=== PATIENT | female | born 1940 | race African-American/Black ===

== ENCOUNTER 2017-07-25 19:13 | Inpatient (IN) | payer MEDICARE, MEDICAID ==
--- NOTE | 2017-07-25 19:27 | ED Physician Chart ---
ED Chief Complaint/HPI - Patient Information Date Seen:: 07/25/17 Time Seen:: 19:25 Chief Complaint:: Agitation History of Present Illness:: 76 yo female was brought from SNF to ER for evaluation of increased agitation, aggressive behavior and verbally abusiveness. Allergies:: Allergies Allergy/AdvReac Type Severity Reaction Status Date / Time Penicillins Allergy Verified 07/25/17 19:14 Vitals:: Vital Signs - 8 hr 07/25/17 19:15 Temp 97.5 F HR 70 RR 20 BP 145/74 O2 Sat % 95 ED Review of Systems - Review of Systems General/Constitutional: No fever Skin: No bruising Head: No headache Eyes: No pain ENT: No nasal drainage Neck: No neck pain Cardio Vascular: No chest pain Pulmonary: No SOB GI: No nausea, No vomiting Musculoskeletal: No bone or joint pain Psychiatric: Prior psych history Neurological: No focal symptoms ED Past Medical History - Past Medical History Past Medical History: ESRD, Seizures, Arthritis, Dementia, Other (DYSPHAGIA, POLYNEUROPATHY, CATARACT, ANEMIA) Social History: Non Smoker, No Alcohol, No Drug Use Psychiatricy History: Depression, Other (anxiety, schizoaffective, psychosis) Family Medical History - Family Member Mother History Unknown: Yes Ethnicity: Unknown Living Status: Unknown ED Physical Exam - Physical Examination General/Constitutional: Awake, Alert Head: Atraumatic Eyes: PERRL Skin: No ecchymosis ENMT: Nasal exam nl Neck: No nuchal rigidity Respiratory: No Wheeze/Rhonchi/Rales Cardio Vascular: RRR, No murmur, gallop, rubs, NL S1 S2 GI: No tenderness/rebounding/guarding Extremities: normal strength in all extremities Neuro/Psych: No focal deficits ED Labs/Radiology/EKG Results - Radiology Results Results: CXR: no focal consolidation ED Assessment - Assessment General Assessment: Psychosis Assessment/Comments:: CBC (blood clotted and patient refused to have another blood draw) CMP, UA CXR, EKG Patient was cleared for geropsych admission ED Septic Shock - . Is Septic Shock (SBP<90, OR Lactate>4 mmol\L) present?: No - <6hrs of presentation: Vital Signs: Vital Signs - 8 hr 07/25/17 19:15 Temp 97.5 F HR 70 RR 20 BP 145/74 O2 Sat % 95 ED Reassessment (Disposition) - Reassessment Reassessment Condition:: Unchanged - Patient Disposition Discharge/Transfer:: Asim w/in this hosp Admitting Medical Physician:: Cynthia Redmond Admitting Psych Physician:: Carmelo Grissom ED Discharge Plan - Patient Disposition Admit/Discharge/Transfer: Other Care w/in this hosp
[2017-07-25 21:35] LABS: ALBUMIN 3.9 gm/dL (3.7-5.3); ALKALINE PHOSPHATASE 63 U/L (34-104); ANION GAP 17.6 (7.0-16.0); BILIRUBIN,TOTAL 0.3 mg/dL (0.3-1.0); BUN - UREA NITROGEN 16 mg/dL (7-25); CALCIUM SERUM 9.2 mg/dL (8.6-10.3); CARBON DIOXIDE 17.2 mEq/L (21.0-31.0); CHLORIDE 109 mEq/L (98-107); CREATININE - SERUM 0.9 mg/dL (0.6-1.2); GLUCOSE 87 mg/dL (70-105); POTASSIUM SERUM 3.8 mEq/L (3.5-5.1); SGOT 21 U/L (13-39); SGPT/ALT 7 U/L (7-52); SODIUM SERUM 140 mEq/L (136-145); TOTAL PROTEIN,SERUM 7.7 gm/dL (6.0-8.3)
[2017-07-25 22:52] LABS: URINE MICROSCOPIC INDICATED? YES; URINE SOURCE RANDOM
[2017-07-25 22:59] LABS: URINE BILIRUBIN NEGATIVE (NEGATIVE); URINE BLOOD NEGATIVE (NEGATIVE); URINE CLARITY CLEAR (CLEAR); URINE COLOR YELLOW; URINE GLUCOSE (UA) NEGATIVE (NEGATIVE); URINE KETONE NEGATIVE (NEGATIVE); URINE LEUKOCYTE ESTERASE NEGATIVE (NEGATIVE); URINE NITRATE NEGATIVE (NEGATIVE); URINE PROTEIN NEGATIVE (NEGATIVE); URINE UROBILINOGEN 0.2 E.U./dL (0.2 - 1.0)
[2017-07-25 23:00] LABS: URINE BACTERIA FEW /hpf (NONE SEEN); URINE EPITHELIAL CELLS FEW /lpf (FEW); URINE RBC 0-2 /hpf (0-5); URINE WBC 0-2 /hpf (0-5)
[2017-07-25 23:57] VITALS: BP 143/73
[2017-07-25] MEDS ORDERED: Magnesium Hydroxide (MOM) 30 mL UDC PO PRN (23:58)
[2017-07-25] MEDS ORDERED: Maalox 30 mL Cup PO PRN (23:58)
[2017-07-26] MEDS ORDERED: Albuterol/Ipratropium Neb 3 ML AERS HHN PRN (00:02)
[2017-07-26 07:05] LABS: MEAN CORPUSCULAR HGB CONC 33.4 pg (28.0-36.0); MONOCYTE ABSOLUTE 0.4 Th/cmm (0.3-1.0); NEUTROPHILE ABSOLUTE 4.2 Th/cmm (1.8-8.0)
[2017-07-26 07:07] LABS: % BASOPHILS 0.5 % (0.0-2.0); % EOSINOPHILS 2.2 % (0.0-5.0); % LYMPHOCYTES 30.2 % (20.0-50.0); % MONOCYTES 6.7 % (2.0-10.0); % NEUTROPHILS 60.4 % (40.0-80.0); EOSINOPHILE ABSOLUTE 0.1 Th/cmm (0.1-0.4); HEMATOCRIT 38.1 % (41.0-60); HEMOGLOBIN 12.8 gm/dL (12-16); MEAN CELL VOLUME 86.7 fl (81-100); MEAN PLATELET VOLUME 9.3 fl; PLATELET COUNT 193 Th/cmm (150-400); RED CELL DISTRIBUTION WIDTH 13.9 % (11.5-20.0); WHITE BLOOD COUNT 6.7 Th/cmm (4.8-10.8)
[2017-07-26] MEDS: Multivitamin Tab PO SCH (08:42)
--- NOTE | 2017-07-26 09:13 | Diagnostic Imaging Report ---
Portable chest x-ray HISTORY: Shortness of breath. The heart is enlarged. There does appear to be degree of pulmonary vascular redistribution consistent with an element of cardiac decompensation. No henrietta pulmonary edema. No focal pulmonary processes. IMPRESSION: 1. Cardiomegaly along with changes suggesting a marginal degree of congestive heart failure without henrietta pulmonary edema. Clinical correlation is needed. 2. No focal pulmonary processes
[2017-07-26] MEDS ORDERED: Magnesium Hydroxide (MOM) 30 mL UDC PO PRN (10:22)
--- NOTE | 2017-07-26 12:28 | History & Physical ---
ADMIT DATE: HISTORY OF PRESENT ILLNESS: This patient is known to have history of multiple medical problems including history of end-stage renal disease, history of seizures, history of arthritis, history of dementia, history of polyneuropathy, history of cataract surgery, history of anemia, history of schizoaffective disorder. The patient came to the Emergency Room because of increasing agitation and aggressive behavior. The patient was admitted for [facility]. The patient complaining of no chest pain, no abdominal pain, no nausea, no vomiting, no diarrhea. Otherwise, system review was negative. PAST MEDICAL HISTORY: As enumerated above including history of ESRD, seizures, arthritis, dementia, polyneuropathy and anemia. PHYSICAL EXAMINATION: GENERAL: Alert, oriented, agitated. HEAD: Normal. ENT: Normal. LUNGS: Bilaterally clear. CARDIOVASCULAR SYSTEM: S1, S2 heard. ABDOMEN: Soft. Bowel sounds are heard. CENTRAL NERVOUS SYSTEM: Decreased sensorium. LABORATORY AND DIAGNOSTIC DATA: Chest x-ray was normal. The patient had all the labs done including CBC, chemistry, UA, chest x-ray, EKG and the patient was cleared for admission to the unit. INITIAL DIAGNOSES: Severe agitation, severe acute psychosis, history of hypertension, history of ESRD and history of seizures. The patient currently on multiple medications including albuterol for breathing treatment, Aricept for dementia, famotidine for GERD. We placed her on multivitamin and also we are giving her lorazepam and I will follow along with Dr. Trent in the Geropsych Unit. [facility]# [id number]
--- NOTE | 2017-07-26 14:31 | History & Physical ---
ADMIT DATE: 07/25/[address] Grissom. IDENTIFYING INFORMATION: The patient is a 76-year-old female. CHIEF COMPLAINT: No answer. HISTORY OF PRESENT ILLNESS: The patient was admitted because of aggressive behavior, verbally abusive. When I talked to her, she looked disheveled. She was a very poor historian. Rambling speech, unable to participate in a meaningful conversation or make safe plan for self-care, unpredictable, impulsive, needing redirection. PAST PSYCHIATRIC HISTORY: Unobtainable with a history of dementia. MEDICAL HISTORY: The patient has history of ESRD, seizure disorder, dementia, neuropathy and anemia. ALLERGIES: PENICILLIN. MEDICATIONS: The patient is on BuSpar 5 mg twice a day, Aricept 10 mg at bedtime, Namenda 5 mg twice a day, and olanzapine 5 mg at bedtime. FAMILY AND SOCIAL HISTORY: Unobtainable. MENTAL STATUS EXAMINATION: The patient is appropriately dressed, not well groomed. She looked disheveled, disorganized, internally preoccupied, unable to ____ conversation, or make safe plan for self-care, unpredictable, impulsive, unable to participate in memory testing, long and short term is poor. She is rambling. She believes she is 38, then she said she is 17, demented, confused; however, unable to do a formal mental status exam because of dementia. Her insight and judgment is impaired. IMPRESSION: AXIS I: Psychosis, not otherwise specified, and dementia. MEDICAL DIAGNOSES: Deferred to Dr. Redmond. Her assets, she is accepting treatment. Negative for coping dementia. INITIAL TREATMENT PLAN: The patient will be continued on medication, will adjust medication, and will do group therapy, milieu therapy, individual therapy. ESTIMATED LENGTH OF STAY: 3-7 days. DISCHARGE CRITERIA: Decrease psychosis, agitation. After discharge, outpatient. JOB# [id number]
[2017-07-27] MEDS ORDERED: Albuterol/Ipratropium Neb 3 ML AERS HHN PRN ×3 (07:59→09:30)
[2017-07-27] MEDS: Multivitamin Tab PO SCH (08:54)
[2017-07-27] MEDS: Albuterol/Ipratropium Neb 3 ML AERS HHN SCH ×4 (11:09→19:36)
--- NOTE | 2017-07-27 12:16 | General Progress Note ---
Subjective - Review of Systems Events since last encounter: psychotic in no acute distress Objective - Results Result Diagrams: 07/26/17 06:55 07/25/17 20:10 Recent Labs: Laboratory Last Values WBC 6.7 Th/cmm (4.8-10.8) 07/26/17 06:55 RBC 4.40 Mil/cmm (3.80-5.20) 07/26/17 06:55 Hgb 12.8 gm/dL (12-16) 07/26/17 06:55 Hct 38.1 % (41.0-60) L 07/26/17 06:55 MCV 86.7 fl (81-100) 07/26/17 06:55 MCH 29.0 pg (27.0-31.0) 07/26/17 06:55 MCHC Differential 33.4 pg (28.0-36.0) 07/26/17 06:55 RDW 13.9 % (11.5-20.0) 07/26/17 06:55 Plt Count 193 Th/cmm (150-400) 07/26/17 06:55 MPV 9.3 fl 07/26/17 06:55 Neutrophils % 60.4 % (40.0-80.0) 07/26/17 06:55 Lymphocytes % 30.2 % (20.0-50.0) 07/26/17 06:55 Monocytes % 6.7 % (2.0-10.0) 07/26/17 06:55 Eosinophils % 2.2 % (0.0-5.0) 07/26/17 06:55 Basophils % 0.5 % (0.0-2.0) 07/26/17 06:55 Sodium 140 mEq/L (136-145) 07/25/17 20:10 Potassium 3.8 mEq/L (3.5-5.1) 07/25/17 20:10 Chloride 109 mEq/L (98-107) H 07/25/17 20:10 Carbon Dioxide 17.2 mEq/L (21.0-31.0) L 07/25/17 20:10 Anion Gap 17.6 (7.0-16.0) H 07/25/17 20:10 BUN 16 mg/dL (7-25) 07/25/17 20:10 Creatinine 0.9 mg/dL (0.6-1.2) 07/25/17 20:10 Est GFR ( Amer) TNP 07/25/17 20:10 Est GFR (Non-Af Amer) TNP 07/25/17 20:10 BUN/Creatinine Ratio 17.8 07/25/17 20:10 Glucose 87 mg/dL (70-105) 07/25/17 20:10 Calcium 9.2 mg/dL (8.6-10.3) 07/25/17 20:10 Total Bilirubin 0.3 mg/dL (0.3-1.0) 07/25/17 20:10 AST 21 U/L (13-39) 07/25/17 20:10 ALT 7 U/L (7-52) 07/25/17 20:10 Alkaline Phosphatase 63 U/L (34-104) 07/25/17 20:10 Total Protein 7.7 gm/dL (6.0-8.3) 07/25/17 20:10 Albumin 3.9 gm/dL (3.7-5.3) 07/25/17 20:10 Globulin 3.8 gm/dL 07/25/17 20:10 Albumin/Globulin Ratio 1.0 (1.0-1.8) 07/25/17 20:10 TSH 1.23 uIU/ml (0.34-5.60) 07/25/17 20:10 Urine Source RANDOM 07/25/17 22:40 Urine Color YELLOW 07/25/17 22:40 Urine Clarity CLEAR (CLEAR) 07/25/17 22:40 Urine pH 6.0 (4.6 - 8.0) 07/25/17 22:40 Ur Specific [place] 1.015 (1.005-1.030) 07/25/17 22:40 Urine Protein NEGATIVE mg/dL (NEGATIVE) 07/25/17 22:40 Urine Glucose (UA) NEGATIVE mg/dL (NEGATIVE) 07/25/17 22:40 Urine Ketones NEGATIVE mg/dL (NEGATIVE) 07/25/17 22:40 Urine Blood NEGATIVE (NEGATIVE) 07/25/17 22:40 Urine Nitrate NEGATIVE (NEGATIVE) 07/25/17 22:40 Urine Bilirubin NEGATIVE (NEGATIVE) 07/25/17 22:40 Urine Urobilinogen 0.2 E.U./dL (0.2 - 1.0) 07/25/17 22:40 Ur Leukocyte Esterase NEGATIVE (NEGATIVE) 07/25/17 22:40 Urine RBC 0-2 /hpf (0-5) 07/25/17 22:40 Urine WBC 0-2 /hpf (0-5) 07/25/17 22:40 Ur Epithelial Cells FEW /lpf (FEW) 07/25/17 22:40 Urine Bacteria FEW /hpf (NONE SEEN) 07/25/17 22:40 - Physical Exam Vitals and I&O: Vital Signs Temp 98 F 07/27/17 06:35 Pulse 84 07/27/17 11:13 Resp 16 07/27/17 11:13 BP 136/71 07/27/17 06:35 Pulse Ox 96 07/27/17 11:13 Intake & Output 07/26/17 07/27/17 07/27/17 18:59 06:59 18:59 Intake Total 480 Balance 480 Intake: Oral 480 Other: # Voids 1 Active Medications: Current Medications Acetaminophen (Tylenol) 650 mg PO Q4HR PRN PRN Reason: Mild Pain / Temp above 100 Stop: 09/23/17 23:57 Acetaminophen (Tylenol) 650 mg PO Q4HR PRN PRN Reason: TEMP >99.9 OR PAIN Stop: 09/24/17 10:21 Al Hydrox/Mg Hydrox/Simethicone (Maalox) 30 ml PO Q4HR PRN PRN Reason: GI DISTRESS Stop: 09/23/17 23:57 Albuterol/Ipratropium (Duoneb Neb) 3 ml HHN [id number] [facility] Stop: 09/25/17 10:59 Last Admin: 07/27/17 11:09 Dose: 3 ml Albuterol/Ipratropium (Duoneb Neb) 3 ml HHN Q4HRT PRN PRN Reason: Wheezing Stop: 09/25/17 09:02 Ascorbic Acid (Vitamin C) 500 mg PO DAILY [facility] Stop: 09/24/17 08:59 Last Admin: 07/27/17 08:55 Dose: 500 mg Buspirone HCl (Buspar) 5 mg PO BID [facility] PRN Reason: Protocol Stop: 09/24/17 08:59 Last Admin: 07/27/17 08:55 Dose: 5 mg Donepezil HCl (Aricept) 10 mg PO HS [facility] Stop: 09/24/17 20:59 Last Admin: 07/26/17 20:49 Dose: 10 mg Famotidine (Pepcid) 20 mg PO DAILY [facility] Stop: 09/24/17 08:59 Last Admin: 07/27/17 08:55 Dose: 20 mg Gabapentin (Neurontin) 300 mg PO BID [facility] Stop: 09/24/17 08:59 Last Admin: 07/27/17 08:55 Dose: 300 mg Lorazepam (Ativan) 0.5 mg PO Q4HR PRN; Protocol PRN Reason: Anxiety/agitation Stop: 08/24/17 23:57 Magnesium Hydroxide (Milk Of Magnesia) 30 ml PO HS PRN PRN Reason: Constipation Magnesium Hydroxide (Milk Of Magnesia) 30 ml PO Q24H PRN PRN Reason: IF NO BM IN THREE DAYS Stop: 09/24/17 10:21 Memantine (Namenda) 5 mg PO BID [facility] Stop: 09/24/17 08:59 Last Admin: 07/27/17 08:55 Dose: 5 mg Multivitamins/Vitamin C (Theragran) 1 tab PO DAILY [facility] Stop: 09/24/17 08:59 Last Admin: 07/27/17 08:54 Dose: 1 tab Olanzapine (Zyprexa) 5 mg PO DAILY [facility] PRN Reason: Protocol Stop: 09/24/17 08:59 Last Admin: 07/27/17 08:55 Dose: 5 mg Pyridoxine HCl (Vitamin B6) 25 mg PO DAILY [facility] Stop: 09/24/17 08:59 Last Admin: 07/27/17 08:54 Dose: 25 mg Zolpidem Tartrate (Ambien) 5 mg PO HS PRN PRN Reason: Insomnia Stop: 09/23/17 23:57 Last Admin: 07/26/17 20:50 Dose: 5 mg Assessment/Plan - Problem List Patient Problems: All Active Problems AGGRESSIVE BEHAVIOR AND VERBAL ABUSE (Acute)
--- NOTE | 2017-07-28 02:09 | Progress Notes ---
DATE: 07/27/[address] Grissom. Case was discussed with staff of the patient, reviewed records. The patient continues to be confused, unable to make safe plan for self-care or participate in meaningful conversation, does have essential agitation, irritability, ____ impulsive, needing redirection. She is compliant with the medication with no side effects, no sedation, no nausea, and no extrapyramidal symptoms. We will continue to work with the patient in group therapy, milieu therapy, and adjust medication as needed. JOB# [id number]
[2017-07-28] MEDS: Albuterol/Ipratropium Neb 3 ML AERS HHN SCH ×4 (07:14→19:49)
[2017-07-28] MEDS: Multivitamin Tab PO SCH (11:18)
--- NOTE | 2017-07-28 20:27 | Internal Medicine Prog Note ---
Internal Medicine Objective - Results Result Diagrams: 07/26/17 06:55 07/25/17 20:10 Recent Labs: Laboratory Last Values WBC 6.7 Th/cmm (4.8-10.8) 07/26/17 06:55 RBC 4.40 Mil/cmm (3.80-5.20) 07/26/17 06:55 Hgb 12.8 gm/dL (12-16) 07/26/17 06:55 Hct 38.1 % (41.0-60) L 07/26/17 06:55 MCV 86.7 fl (81-100) 07/26/17 06:55 MCH 29.0 pg (27.0-31.0) 07/26/17 06:55 MCHC Differential 33.4 pg (28.0-36.0) 07/26/17 06:55 RDW 13.9 % (11.5-20.0) 07/26/17 06:55 Plt Count 193 Th/cmm (150-400) 07/26/17 06:55 MPV 9.3 fl 07/26/17 06:55 Neutrophils % 60.4 % (40.0-80.0) 07/26/17 06:55 Lymphocytes % 30.2 % (20.0-50.0) 07/26/17 06:55 Monocytes % 6.7 % (2.0-10.0) 07/26/17 06:55 Eosinophils % 2.2 % (0.0-5.0) 07/26/17 06:55 Basophils % 0.5 % (0.0-2.0) 07/26/17 06:55 Sodium 140 mEq/L (136-145) 07/25/17 20:10 Potassium 3.8 mEq/L (3.5-5.1) 07/25/17 20:10 Chloride 109 mEq/L (98-107) H 07/25/17 20:10 Carbon Dioxide 17.2 mEq/L (21.0-31.0) L 07/25/17 20:10 Anion Gap 17.6 (7.0-16.0) H 07/25/17 20:10 BUN 16 mg/dL (7-25) 07/25/17 20:10 Creatinine 0.9 mg/dL (0.6-1.2) 07/25/17 20:10 Est GFR ( Amer) TNP 07/25/17 20:10 Est GFR (Non-Af Amer) TNP 07/25/17 20:10 BUN/Creatinine Ratio 17.8 07/25/17 20:10 Glucose 87 mg/dL (70-105) 07/25/17 20:10 Calcium 9.2 mg/dL (8.6-10.3) 07/25/17 20:10 Total Bilirubin 0.3 mg/dL (0.3-1.0) 07/25/17 20:10 AST 21 U/L (13-39) 07/25/17 20:10 ALT 7 U/L (7-52) 07/25/17 20:10 Alkaline Phosphatase 63 U/L (34-104) 07/25/17 20:10 Total Protein 7.7 gm/dL (6.0-8.3) 07/25/17 20:10 Albumin 3.9 gm/dL (3.7-5.3) 07/25/17 20:10 Globulin 3.8 gm/dL 07/25/17 20:10 Albumin/Globulin Ratio 1.0 (1.0-1.8) 07/25/17 20:10 TSH 1.23 uIU/ml (0.34-5.60) 07/25/17 20:10 Urine Source RANDOM 07/25/17 22:40 Urine Color YELLOW 07/25/17 22:40 Urine Clarity CLEAR (CLEAR) 07/25/17 22:40 Urine pH 6.0 (4.6 - 8.0) 07/25/17 22:40 Ur Specific [place] 1.015 (1.005-1.030) 07/25/17 22:40 Urine Protein NEGATIVE mg/dL (NEGATIVE) 07/25/17 22:40 Urine Glucose (UA) NEGATIVE mg/dL (NEGATIVE) 07/25/17 22:40 Urine Ketones NEGATIVE mg/dL (NEGATIVE) 07/25/17 22:40 Urine Blood NEGATIVE (NEGATIVE) 07/25/17 22:40 Urine Nitrate NEGATIVE (NEGATIVE) 07/25/17 22:40 Urine Bilirubin NEGATIVE (NEGATIVE) 07/25/17 22:40 Urine Urobilinogen 0.2 E.U./dL (0.2 - 1.0) 07/25/17 22:40 Ur Leukocyte Esterase NEGATIVE (NEGATIVE) 07/25/17 22:40 Urine RBC 0-2 /hpf (0-5) 07/25/17 22:40 Urine WBC 0-2 /hpf (0-5) 07/25/17 22:40 Ur Epithelial Cells FEW /lpf (FEW) 07/25/17 22:40 Urine Bacteria FEW /hpf (NONE SEEN) 07/25/17 22:40 - Physical Exam Vitals and I&O: Vital Signs Temp 98 F 07/28/17 14:00 Pulse 86 07/28/17 16:11 Resp 20 07/28/17 19:49 BP 116/90 07/28/17 14:00 Pulse Ox 97 07/28/17 16:11 Intake & Output 07/28/17 07/28/17 07/29/17 06:59 18:59 06:59 Intake Total 240 1200 240 Balance 240 1200 240 Weight (lbs) 67.585 kg Intake: Oral 240 1200 240 Other: # Voids 3 3 1 # Bowel Movements 0 0 Weight Source Bedscale Active Medications: Current Medications Acetaminophen (Tylenol) 650 mg PO Q4HR PRN PRN Reason: Mild Pain / Temp above 100 Stop: 09/23/17 23:57 Acetaminophen (Tylenol) 650 mg PO Q4HR PRN PRN Reason: TEMP >99.9 OR PAIN Stop: 09/24/17 10:21 Al Hydrox/Mg Hydrox/Simethicone (Maalox) 30 ml PO Q4HR PRN PRN Reason: GI DISTRESS Stop: 09/23/17 23:57 Albuterol/Ipratropium (Duoneb Neb) 3 ml HHN [id number] Stop: 09/25/17 10:59 Last Admin: 07/28/17 19:49 Dose: Not Given Albuterol/Ipratropium (Duoneb Neb) 3 ml HHN Q4HRT PRN PRN Reason: Wheezing Stop: 09/25/17 09:02 Ascorbic Acid (Vitamin C) 500 mg PO DAILY [facility] Stop: 09/24/17 08:59 Last Admin: 07/28/17 11:18 Dose: Not Given Buspirone HCl (Buspar) 5 mg PO BID [facility] PRN Reason: Protocol Stop: 09/24/17 08:59 Last Admin: 07/28/17 16:42 Dose: 5 mg Donepezil HCl (Aricept) 10 mg PO HS [facility] Stop: 09/24/17 20:59 Last Admin: 07/28/17 20:24 Dose: 10 mg Famotidine (Pepcid) 20 mg PO DAILY [facility] Stop: 09/24/17 08:59 Last Admin: 07/28/17 11:18 Dose: Not Given Gabapentin (Neurontin) 300 mg PO BID [facility] Stop: 09/24/17 08:59 Last Admin: 07/28/17 16:42 Dose: 300 mg Lorazepam (Ativan) 0.5 mg PO Q4HR PRN; Protocol PRN Reason: Anxiety/agitation Stop: 08/24/17 23:57 Last Admin: 07/27/17 20:55 Dose: 0.5 mg Magnesium Hydroxide (Milk Of Magnesia) 30 ml PO HS PRN PRN Reason: Constipation Magnesium Hydroxide (Milk Of Magnesia) 30 ml PO Q24H PRN PRN Reason: IF NO BM IN THREE DAYS Stop: 09/24/17 10:21 Memantine (Namenda) 5 mg PO BID [facility] Stop: 09/24/17 08:59 Last Admin: 07/28/17 16:42 Dose: 5 mg Multivitamins/Vitamin C (Theragran) 1 tab PO DAILY [facility] Stop: 09/24/17 08:59 Last Admin: 07/28/17 11:18 Dose: Not Given Olanzapine (Zyprexa) 5 mg PO DAILY [facility] PRN Reason: Protocol Stop: 09/24/17 08:59 Last Admin: 07/28/17 11:18 Dose: Not Given Pyridoxine HCl (Vitamin B6) 25 mg PO DAILY [facility] Stop: 09/24/17 08:59 Last Admin: 07/28/17 11:18 Dose: Not Given Zolpidem Tartrate (Ambien) 5 mg PO HS PRN PRN Reason: Insomnia Stop: 09/23/17 23:57 Last Admin: 07/27/17 20:55 Dose: 5 mg
--- NOTE | 2017-07-28 23:54 | Progress Notes ---
DATE: 07/28/2017 SUBJECTIVE: Case discussed with staff of the patient, reviewed records. The patient continues to have poor insight, talking to herself, unpredictable, impulsive, demented, confused, needing redirection, unable to make safe plan for self-care or participate in a meaningful conversation. She is sleeping better, eating better. No side effects with the medication, no sedation, no nausea, no extrapyramidal symptoms and we will continue to work with the patient in group therapy, milieu therapy, and adjust medication as needed. JOB# [id number]
[2017-07-29] MEDS: Albuterol/Ipratropium Neb 3 ML AERS HHN SCH ×4 (07:17→19:43)
[2017-07-29] MEDS: Multivitamin Tab PO SCH (09:28)
--- NOTE | 2017-07-29 15:23 | Progress Notes ---
DATE: 07/29/2017 SUBJECTIVE: Case was discussed with staff and patient records. The patient continues to be demented, confused, very poor insight, unpredictable, impulsive, needing redirection, very poor insight. Unable to make safe plan for self-care. She is compliant with the medication with no side effects, no sedation. No nausea. . We will continue to work with the patient in group therapy, milieu therapy, and adjust medications as needed. JOB# [id number]
--- NOTE | 2017-07-29 20:17 | Internal Medicine Prog Note ---
Internal Medicine Subjective - Subjective Service Date: 07/29/17 Patient seen and examined:: with staff Patient is:: awake Per staff patient has:: tolerating meds Internal Medicine Objective - Results Result Diagrams: 07/26/17 06:55 07/25/17 20:10 Recent Labs: Laboratory Last Values WBC 6.7 Th/cmm (4.8-10.8) 07/26/17 06:55 RBC 4.40 Mil/cmm (3.80-5.20) 07/26/17 06:55 Hgb 12.8 gm/dL (12-16) 07/26/17 06:55 Hct 38.1 % (41.0-60) L 07/26/17 06:55 MCV 86.7 fl (81-100) 07/26/17 06:55 MCH 29.0 pg (27.0-31.0) 07/26/17 06:55 MCHC Differential 33.4 pg (28.0-36.0) 07/26/17 06:55 RDW 13.9 % (11.5-20.0) 07/26/17 06:55 Plt Count 193 Th/cmm (150-400) 07/26/17 06:55 MPV 9.3 fl 07/26/17 06:55 Neutrophils % 60.4 % (40.0-80.0) 07/26/17 06:55 Lymphocytes % 30.2 % (20.0-50.0) 07/26/17 06:55 Monocytes % 6.7 % (2.0-10.0) 07/26/17 06:55 Eosinophils % 2.2 % (0.0-5.0) 07/26/17 06:55 Basophils % 0.5 % (0.0-2.0) 07/26/17 06:55 Sodium 140 mEq/L (136-145) 07/25/17 20:10 Potassium 3.8 mEq/L (3.5-5.1) 07/25/17 20:10 Chloride 109 mEq/L (98-107) H 07/25/17 20:10 Carbon Dioxide 17.2 mEq/L (21.0-31.0) L 07/25/17 20:10 Anion Gap 17.6 (7.0-16.0) H 07/25/17 20:10 BUN 16 mg/dL (7-25) 07/25/17 20:10 Creatinine 0.9 mg/dL (0.6-1.2) 07/25/17 20:10 Est GFR ( Amer) TNP 07/25/17 20:10 Est GFR (Non-Af Amer) TNP 07/25/17 20:10 BUN/Creatinine Ratio 17.8 07/25/17 20:10 Glucose 87 mg/dL (70-105) 07/25/17 20:10 Calcium 9.2 mg/dL (8.6-10.3) 07/25/17 20:10 Total Bilirubin 0.3 mg/dL (0.3-1.0) 07/25/17 20:10 AST 21 U/L (13-39) 07/25/17 20:10 ALT 7 U/L (7-52) 07/25/17 20:10 Alkaline Phosphatase 63 U/L (34-104) 07/25/17 20:10 Total Protein 7.7 gm/dL (6.0-8.3) 07/25/17 20:10 Albumin 3.9 gm/dL (3.7-5.3) 07/25/17 20:10 Globulin 3.8 gm/dL 07/25/17 20:10 Albumin/Globulin Ratio 1.0 (1.0-1.8) 07/25/17 20:10 TSH 1.23 uIU/ml (0.34-5.60) 07/25/17 20:10 Urine Source RANDOM 07/25/17 22:40 Urine Color YELLOW 07/25/17 22:40 Urine Clarity CLEAR (CLEAR) 07/25/17 22:40 Urine pH 6.0 (4.6 - 8.0) 07/25/17 22:40 Ur Specific [place] 1.015 (1.005-1.030) 07/25/17 22:40 Urine Protein NEGATIVE mg/dL (NEGATIVE) 07/25/17 22:40 Urine Glucose (UA) NEGATIVE mg/dL (NEGATIVE) 07/25/17 22:40 Urine Ketones NEGATIVE mg/dL (NEGATIVE) 07/25/17 22:40 Urine Blood NEGATIVE (NEGATIVE) 07/25/17 22:40 Urine Nitrate NEGATIVE (NEGATIVE) 07/25/17 22:40 Urine Bilirubin NEGATIVE (NEGATIVE) 07/25/17 22:40 Urine Urobilinogen 0.2 E.U./dL (0.2 - 1.0) 07/25/17 22:40 Ur Leukocyte Esterase NEGATIVE (NEGATIVE) 07/25/17 22:40 Urine RBC 0-2 /hpf (0-5) 07/25/17 22:40 Urine WBC 0-2 /hpf (0-5) 07/25/17 22:40 Ur Epithelial Cells FEW /lpf (FEW) 07/25/17 22:40 Urine Bacteria FEW /hpf (NONE SEEN) 07/25/17 22:40 - Physical Exam Vitals and I&O: Vital Signs Temp 98.7 F 07/29/17 15:36 Pulse 74 07/29/17 19:44 Resp 20 07/29/17 19:44 BP 158/81 07/29/17 15:36 Pulse Ox 95 07/29/17 19:44 Intake & Output 07/29/17 07/29/17 07/30/17 06:59 18:59 06:59 Intake Total 360 1200 Balance 360 1200 Intake: Oral 360 1200 Other: # Voids 1 3 # Bowel Movements 0 Active Medications: Current Medications Acetaminophen (Tylenol) 650 mg PO Q4HR PRN PRN Reason: Mild Pain / Temp above 100 Stop: 09/23/17 23:57 Last Admin: 07/29/17 15:44 Dose: 650 mg Acetaminophen (Tylenol) 650 mg PO Q4HR PRN PRN Reason: TEMP >99.9 OR PAIN Stop: 09/24/17 10:21 Al Hydrox/Mg Hydrox/Simethicone (Maalox) 30 ml PO Q4HR PRN PRN Reason: GI DISTRESS Stop: 09/23/17 23:57 Albuterol/Ipratropium (Duoneb Neb) 3 ml HHN [id number] [facility] Stop: 09/25/17 10:59 Last Admin: 07/29/17 19:43 Dose: Not Given Albuterol/Ipratropium (Duoneb Neb) 3 ml HHN Q4HRT PRN PRN Reason: Wheezing Stop: 09/25/17 09:02 Ascorbic Acid (Vitamin C) 500 mg PO DAILY [facility] Stop: 09/24/17 08:59 Last Admin: 07/29/17 09:30 Dose: 500 mg Buspirone HCl (Buspar) 5 mg PO BID [facility] DANIEL PRN Reason: Protocol Stop: 09/24/17 08:59 Last Admin: 07/29/17 16:51 Dose: 5 mg Donepezil HCl (Aricept) 10 mg PO HS [facility] DANIEL Stop: 09/24/17 20:59 Last Admin: 07/28/17 20:24 Dose: 10 mg Famotidine (Pepcid) 20 mg PO DAILY [facility] Stop: 09/24/17 08:59 Last Admin: 07/29/17 09:28 Dose: 20 mg Gabapentin (Neurontin) 300 mg PO BID [facility] DANIEL Stop: 09/24/17 08:59 Last Admin: 07/29/17 16:51 Dose: 300 mg Lorazepam (Ativan) 0.5 mg PO Q4HR PRN; Protocol PRN Reason: Anxiety/agitation Stop: 08/24/17 23:57 Last Admin: 07/27/17 20:55 Dose: 0.5 mg Magnesium Hydroxide (Milk Of Magnesia) 30 ml PO Q24H PRN PRN Reason: IF NO BM IN THREE DAYS Stop: 09/24/17 10:21 Memantine (Namenda) 5 mg PO BID LUIS DANIEL Stop: 09/24/17 08:59 Last Admin: 07/29/17 16:51 Dose: 5 mg Multivitamins/Vitamin C (Theragran) 1 tab PO DAILY [facility] DANIEL Stop: 09/24/17 08:59 Last Admin: 07/29/17 09:28 Dose: 1 tab Olanzapine (Zyprexa) 5 mg PO DAILY [facility] DANIEL PRN Reason: Protocol Stop: 09/24/17 08:59 Last Admin: 07/29/17 09:31 Dose: 5 mg Pyridoxine HCl (Vitamin B6) 25 mg PO DAILY [facility] DANIEL Stop: 09/24/17 08:59 Last Admin: 07/29/17 09:28 Dose: 25 mg Zolpidem Tartrate (Ambien) 5 mg PO HS PRN PRN Reason: Insomnia Stop: 09/23/17 23:57 Last Admin: 07/27/17 20:55 Dose: 5 mg HEENT: NC/AT Neck: Supple Lungs: CTAB
[2017-07-30] MEDS: Albuterol/Ipratropium Neb 3 ML AERS HHN SCH ×4 (07:30→20:22)
[2017-07-30] MEDS: Multivitamin Tab PO SCH (08:25)
--- NOTE | 2017-07-30 14:17 | General Progress Note ---
Subjective - Review of Systems Events since last encounter: no distress awake alert Objective - Results Result Diagrams: 07/26/17 06:55 07/25/17 20:10 Recent Labs: Laboratory Last Values WBC 6.7 Th/cmm (4.8-10.8) 07/26/17 06:55 RBC 4.40 Mil/cmm (3.80-5.20) 07/26/17 06:55 Hgb 12.8 gm/dL (12-16) 07/26/17 06:55 Hct 38.1 % (41.0-60) L 07/26/17 06:55 MCV 86.7 fl (81-100) 07/26/17 06:55 MCH 29.0 pg (27.0-31.0) 07/26/17 06:55 MCHC Differential 33.4 pg (28.0-36.0) 07/26/17 06:55 RDW 13.9 % (11.5-20.0) 07/26/17 06:55 Plt Count 193 Th/cmm (150-400) 07/26/17 06:55 MPV 9.3 fl 07/26/17 06:55 Neutrophils % 60.4 % (40.0-80.0) 07/26/17 06:55 Lymphocytes % 30.2 % (20.0-50.0) 07/26/17 06:55 Monocytes % 6.7 % (2.0-10.0) 07/26/17 06:55 Eosinophils % 2.2 % (0.0-5.0) 07/26/17 06:55 Basophils % 0.5 % (0.0-2.0) 07/26/17 06:55 Sodium 140 mEq/L (136-145) 07/25/17 20:10 Potassium 3.8 mEq/L (3.5-5.1) 07/25/17 20:10 Chloride 109 mEq/L (98-107) H 07/25/17 20:10 Carbon Dioxide 17.2 mEq/L (21.0-31.0) L 07/25/17 20:10 Anion Gap 17.6 (7.0-16.0) H 07/25/17 20:10 BUN 16 mg/dL (7-25) 07/25/17 20:10 Creatinine 0.9 mg/dL (0.6-1.2) 07/25/17 20:10 Est GFR ( Amer) TNP 07/25/17 20:10 Est GFR (Non-Af Amer) TNP 07/25/17 20:10 BUN/Creatinine Ratio 17.8 07/25/17 20:10 Glucose 87 mg/dL (70-105) 07/25/17 20:10 Calcium 9.2 mg/dL (8.6-10.3) 07/25/17 20:10 Total Bilirubin 0.3 mg/dL (0.3-1.0) 07/25/17 20:10 AST 21 U/L (13-39) 07/25/17 20:10 ALT 7 U/L (7-52) 07/25/17 20:10 Alkaline Phosphatase 63 U/L (34-104) 07/25/17 20:10 Total Protein 7.7 gm/dL (6.0-8.3) 07/25/17 20:10 Albumin 3.9 gm/dL (3.7-5.3) 07/25/17 20:10 Globulin 3.8 gm/dL 07/25/17 20:10 Albumin/Globulin Ratio 1.0 (1.0-1.8) 07/25/17 20:10 TSH 1.23 uIU/ml (0.34-5.60) 07/25/17 20:10 Urine Source RANDOM 07/25/17 22:40 Urine Color YELLOW 07/25/17 22:40 Urine Clarity CLEAR (CLEAR) 07/25/17 22:40 Urine pH 6.0 (4.6 - 8.0) 07/25/17 22:40 Ur Specific [place] 1.015 (1.005-1.030) 07/25/17 22:40 Urine Protein NEGATIVE mg/dL (NEGATIVE) 07/25/17 22:40 Urine Glucose (UA) NEGATIVE mg/dL (NEGATIVE) 07/25/17 22:40 Urine Ketones NEGATIVE mg/dL (NEGATIVE) 07/25/17 22:40 Urine Blood NEGATIVE (NEGATIVE) 07/25/17 22:40 Urine Nitrate NEGATIVE (NEGATIVE) 07/25/17 22:40 Urine Bilirubin NEGATIVE (NEGATIVE) 07/25/17 22:40 Urine Urobilinogen 0.2 E.U./dL (0.2 - 1.0) 07/25/17 22:40 Ur Leukocyte Esterase NEGATIVE (NEGATIVE) 07/25/17 22:40 Urine RBC 0-2 /hpf (0-5) 07/25/17 22:40 Urine WBC 0-2 /hpf (0-5) 07/25/17 22:40 Ur Epithelial Cells FEW /lpf (FEW) 07/25/17 22:40 Urine Bacteria FEW /hpf (NONE SEEN) 07/25/17 22:40 - Physical Exam Vitals and I&O: Vital Signs Temp 97.7 F 07/30/17 06:34 Pulse 104 07/30/17 07:30 Resp 20 07/30/17 07:30 BP 123/74 07/30/17 06:34 Pulse Ox 97 07/30/17 07:30 Intake & Output 07/29/17 07/30/17 07/30/17 18:59 06:59 18:59 Intake Total 1200 120 Balance 1200 120 Intake: Oral 1200 120 Other: # Voids 3 3 Active Medications: Current Medications Acetaminophen (Tylenol) 650 mg PO Q4HR PRN PRN Reason: Mild Pain / Temp above 100 Stop: 09/23/17 23:57 Last Admin: 07/29/17 15:44 Dose: 650 mg Acetaminophen (Tylenol) 650 mg PO Q4HR PRN PRN Reason: TEMP >99.9 OR PAIN Stop: 09/24/17 10:21 Al Hydrox/Mg Hydrox/Simethicone (Maalox) 30 ml PO Q4HR PRN PRN Reason: GI DISTRESS Stop: 09/23/17 23:57 Albuterol/Ipratropium (Duoneb Neb) 3 ml HHN [id number] [facility] Stop: 09/25/17 10:59 Last Admin: 07/30/17 11:00 Dose: Not Given Albuterol/Ipratropium (Duoneb Neb) 3 ml HHN Q4HRT PRN PRN Reason: Wheezing Stop: 09/25/17 09:02 Ascorbic Acid (Vitamin C) 500 mg PO DAILY [facility] Stop: 09/24/17 08:59 Last Admin: 07/30/17 08:25 Dose: 500 mg Donepezil HCl (Aricept) 10 mg PO HS [facility] Stop: 09/24/17 20:59 Last Admin: 07/29/17 21:19 Dose: 10 mg Famotidine (Pepcid) 20 mg PO DAILY [facility] Stop: 09/24/17 08:59 Last Admin: 07/30/17 08:25 Dose: 20 mg Gabapentin (Neurontin) 300 mg PO BID [facility] Stop: 09/24/17 08:59 Last Admin: 07/30/17 08:25 Dose: 300 mg Lorazepam (Ativan) 0.5 mg PO Q4HR PRN; Protocol PRN Reason: Anxiety/agitation Stop: 08/24/17 23:57 Last Admin: 07/27/17 20:55 Dose: 0.5 mg Magnesium Hydroxide (Milk Of Magnesia) 30 ml PO Q24H PRN PRN Reason: IF NO BM IN THREE DAYS Stop: 09/24/17 10:21 Memantine (Namenda) 5 mg PO BID [facility] Stop: 09/24/17 08:59 Last Admin: 07/30/17 08:26 Dose: Not Given Memantine (Namenda) 5 mg PO DAILY [facility] Stop: 09/28/17 08:59 Last Admin: 07/30/17 08:26 Dose: Not Given Multivitamins/Vitamin C (Theragran) 1 tab PO DAILY [facility] Stop: 09/24/17 08:59 Last Admin: 07/30/17 08:25 Dose: 1 tab Olanzapine (Zyprexa) 5 mg PO DAILY [facility] PRN Reason: Protocol Stop: 09/24/17 08:59 Last Admin: 07/30/17 08:26 Dose: 5 mg Pyridoxine HCl (Vitamin B6) 25 mg PO DAILY [facility] Stop: 09/24/17 08:59 Last Admin: 07/30/17 08:25 Dose: 25 mg Zolpidem Tartrate (Ambien) 5 mg PO HS PRN PRN Reason: Insomnia Stop: 09/23/17 23:57 Last Admin: 07/27/17 20:55 Dose: 5 mg Assessment/Plan - Problem List Patient Problems: All Active Problems AGGRESSIVE BEHAVIOR AND VERBAL ABUSE (Acute)
--- NOTE | 2017-07-30 22:03 | Progress Notes ---
DATE: 07/30/2017 SUBJECTIVE: Chart reviewed and the patient interviewed. Also, discussed the patient's condition with the staff and reviewed records and labs. The patient continued to be confused and still needs lots of redirections. The patient also still mumbles and actively talking to herself and making no sense and cannot carry on coherent conversation. The patient is unable to tell me any safe plan for self-care. She is forgetful and cannot retain any of my information to her. On the other hand, the patient is compliant with taking her medications with no side effect of medications. The patient is anxious and is disheveled. She also seems to be confused. ASSESSMENT: The patient is still confused and considered to be gravely disabled. TREATMENT PLAN: We will continue to monitor her behavior and her condition closely. Also, continue Zyprexa and Aricept same dose. Also, will discontinue BuSpar and start the patient on Namenda to help with her forgetfulness and will continue to follow up closely. [facility]# [id number]
[2017-07-31] MEDS: Albuterol/Ipratropium Neb 3 ML AERS HHN SCH ×4 (07:10→19:49)
[2017-07-31] MEDS: Multivitamin Tab PO SCH (09:13)
--- NOTE | 2017-07-31 09:46 | General Progress Note ---
Subjective - Review of Systems Events since last encounter: patient anxious and still confused disorganized Objective - Results Result Diagrams: 07/26/17 06:55 07/25/17 20:10 Recent Labs: Laboratory Last Values WBC 6.7 Th/cmm (4.8-10.8) 07/26/17 06:55 RBC 4.40 Mil/cmm (3.80-5.20) 07/26/17 06:55 Hgb 12.8 gm/dL (12-16) 07/26/17 06:55 Hct 38.1 % (41.0-60) L 07/26/17 06:55 MCV 86.7 fl (81-100) 07/26/17 06:55 MCH 29.0 pg (27.0-31.0) 07/26/17 06:55 MCHC Differential 33.4 pg (28.0-36.0) 07/26/17 06:55 RDW 13.9 % (11.5-20.0) 07/26/17 06:55 Plt Count 193 Th/cmm (150-400) 07/26/17 06:55 MPV 9.3 fl 07/26/17 06:55 Neutrophils % 60.4 % (40.0-80.0) 07/26/17 06:55 Lymphocytes % 30.2 % (20.0-50.0) 07/26/17 06:55 Monocytes % 6.7 % (2.0-10.0) 07/26/17 06:55 Eosinophils % 2.2 % (0.0-5.0) 07/26/17 06:55 Basophils % 0.5 % (0.0-2.0) 07/26/17 06:55 Sodium 140 mEq/L (136-145) 07/25/17 20:10 Potassium 3.8 mEq/L (3.5-5.1) 07/25/17 20:10 Chloride 109 mEq/L (98-107) H 07/25/17 20:10 Carbon Dioxide 17.2 mEq/L (21.0-31.0) L 07/25/17 20:10 Anion Gap 17.6 (7.0-16.0) H 07/25/17 20:10 BUN 16 mg/dL (7-25) 07/25/17 20:10 Creatinine 0.9 mg/dL (0.6-1.2) 07/25/17 20:10 Est GFR ( Amer) TNP 07/25/17 20:10 Est GFR (Non-Af Amer) TNP 07/25/17 20:10 BUN/Creatinine Ratio 17.8 07/25/17 20:10 Glucose 87 mg/dL (70-105) 07/25/17 20:10 Calcium 9.2 mg/dL (8.6-10.3) 07/25/17 20:10 Total Bilirubin 0.3 mg/dL (0.3-1.0) 07/25/17 20:10 AST 21 U/L (13-39) 07/25/17 20:10 ALT 7 U/L (7-52) 07/25/17 20:10 Alkaline Phosphatase 63 U/L (34-104) 07/25/17 20:10 Total Protein 7.7 gm/dL (6.0-8.3) 07/25/17 20:10 Albumin 3.9 gm/dL (3.7-5.3) 07/25/17 20:10 Globulin 3.8 gm/dL 07/25/17 20:10 Albumin/Globulin Ratio 1.0 (1.0-1.8) 07/25/17 20:10 TSH 1.23 uIU/ml (0.34-5.60) 07/25/17 20:10 Urine Source RANDOM 07/25/17 22:40 Urine Color YELLOW 07/25/17 22:40 Urine Clarity CLEAR (CLEAR) 07/25/17 22:40 Urine pH 6.0 (4.6 - 8.0) 07/25/17 22:40 Ur Specific [place] 1.015 (1.005-1.030) 07/25/17 22:40 Urine Protein NEGATIVE mg/dL (NEGATIVE) 07/25/17 22:40 Urine Glucose (UA) NEGATIVE mg/dL (NEGATIVE) 07/25/17 22:40 Urine Ketones NEGATIVE mg/dL (NEGATIVE) 07/25/17 22:40 Urine Blood NEGATIVE (NEGATIVE) 07/25/17 22:40 Urine Nitrate NEGATIVE (NEGATIVE) 07/25/17 22:40 Urine Bilirubin NEGATIVE (NEGATIVE) 07/25/17 22:40 Urine Urobilinogen 0.2 E.U./dL (0.2 - 1.0) 07/25/17 22:40 Ur Leukocyte Esterase NEGATIVE (NEGATIVE) 07/25/17 22:40 Urine RBC 0-2 /hpf (0-5) 07/25/17 22:40 Urine WBC 0-2 /hpf (0-5) 07/25/17 22:40 Ur Epithelial Cells FEW /lpf (FEW) 07/25/17 22:40 Urine Bacteria FEW /hpf (NONE SEEN) 07/25/17 22:40 - Physical Exam Vitals and I&O: Vital Signs Temp 98 F 07/31/17 07:01 Pulse 76 07/31/17 07:13 Resp 19 07/31/17 07:13 BP 133/77 07/31/17 07:01 Pulse Ox 95 07/31/17 07:13 Intake & Output 07/30/17 07/31/17 07/31/17 18:59 06:59 18:59 Intake Total 1200 120 Balance 1200 120 Intake: Oral 1200 120 Other: # Voids 3 3 Active Medications: Current Medications Acetaminophen (Tylenol) 650 mg PO Q4HR PRN PRN Reason: Mild Pain / Temp above 100 Stop: 09/23/17 23:57 Last Admin: 07/29/17 15:44 Dose: 650 mg Acetaminophen (Tylenol) 650 mg PO Q4HR PRN PRN Reason: TEMP >99.9 OR PAIN Stop: 09/24/17 10:21 Al Hydrox/Mg Hydrox/Simethicone (Maalox) 30 ml PO Q4HR PRN PRN Reason: GI DISTRESS Stop: 09/23/17 23:57 Albuterol/Ipratropium (Duoneb Neb) 3 ml HHN [id number] [facility] Stop: 09/25/17 10:59 Last Admin: 07/31/17 07:10 Dose: 3 ml Albuterol/Ipratropium (Duoneb Neb) 3 ml HHN Q4HRT PRN PRN Reason: Wheezing Stop: 09/25/17 09:02 Ascorbic Acid (Vitamin C) 500 mg PO DAILY [facility] Stop: 09/24/17 08:59 Last Admin: 07/31/17 09:12 Dose: 500 mg Donepezil HCl (Aricept) 10 mg PO HS [facility] Stop: 09/24/17 20:59 Last Admin: 07/30/17 21:07 Dose: 10 mg Famotidine (Pepcid) 20 mg PO DAILY [facility] Stop: 09/24/17 08:59 Last Admin: 07/31/17 09:13 Dose: 20 mg Gabapentin (Neurontin) 300 mg PO BID [facility] Stop: 09/24/17 08:59 Last Admin: 07/31/17 09:13 Dose: 300 mg Lorazepam (Ativan) 0.5 mg PO Q4HR PRN; Protocol PRN Reason: Anxiety/agitation Stop: 08/24/17 23:57 Last Admin: 07/30/17 21:07 Dose: 0.5 mg Magnesium Hydroxide (Milk Of Magnesia) 30 ml PO Q24H PRN PRN Reason: IF NO BM IN THREE DAYS Stop: 09/24/17 10:21 Memantine (Namenda) 5 mg PO BID [facility] Stop: 09/24/17 08:59 Last Admin: 07/31/17 09:13 Dose: Not Given Memantine (Namenda) 5 mg PO DAILY [facility] Stop: 09/28/17 08:59 Last Admin: 07/31/17 09:13 Dose: 5 mg Multivitamins/Vitamin C (Theragran) 1 tab PO DAILY [facility] Stop: 09/24/17 08:59 Last Admin: 07/31/17 09:13 Dose: 1 tab Olanzapine (Zyprexa) 5 mg PO DAILY [facility] PRN Reason: Protocol Stop: 09/24/17 08:59 Last Admin: 07/31/17 09:13 Dose: 5 mg Pyridoxine HCl (Vitamin B6) 25 mg PO DAILY [facility] Stop: 09/24/17 08:59 Last Admin: 07/31/17 09:12 Dose: 25 mg Zolpidem Tartrate (Ambien) 5 mg PO HS PRN PRN Reason: Insomnia Stop: 09/23/17 23:57 Last Admin: 07/30/17 21:07 Dose: 5 mg Assessment/Plan - Problem List Patient Problems: All Active Problems AGGRESSIVE BEHAVIOR AND VERBAL ABUSE (Acute)
[2017-08-01] MEDS: Albuterol/Ipratropium Neb 3 ML AERS HHN SCH ×4 (07:54→19:32)
[2017-08-01] MEDS: Multivitamin Tab PO SCH (09:23)
--- NOTE | 2017-08-01 09:41 | Progress Notes ---
DATE: Chart reviewed and the patient interviewed. Also discussed the patient's condition with the staff and reviewed records and labs. The patient is still confused and still needs lots of redirections. The patient also is still actively hallucinating and still talking to herself and is unable to carry on any coherent conversation. She also is still easily agitated and irritable. The patient also is still suspicious and is still paranoid. The patient also is still feeling hopeless and helpless. ASSESSMENT: The patient is still confused and agitated and still needs lots of redirections. TREATMENT PLAN: Continue monitoring her behavior and continue to follow up closely. JOB# [id number]
[2017-08-02] MEDS: Albuterol/Ipratropium Neb 3 ML AERS HHN SCH ×4 (07:31→20:50)
[2017-08-02] MEDS: Multivitamin Tab PO SCH (09:15)
--- NOTE | 2017-08-02 23:09 | Progress Notes ---
DATE: 08/02/2017 SUBJECTIVE: The patient is here due to aggressive behaviors, verbally abusive, disheveled, unkempt, rambling speech, history of dementia and neuropathy. Dr. Grissom has been seeing the patient over the past few days, noting ongoing confusion and agitation, impulsive, unpredictable, suspicions. The patient is in a Vero chair. She does not know the year. She does not know where she is. She is mumbling. Medications were noted. The patient is eating with prompting. Sleeping with early learning teacher awakenings. ASSESSMENT: The patient is confused, agitated, unruly, impulsive. PLAN: We will continue to monitor. Given her ongoing symptoms, she is not safe for discharge. [facility]# [id number]
--- NOTE | 2017-08-03 01:56 | Progress Notes ---
DATE: 08/02/2017 SUBJECTIVE: The patient was seen in the dining area, watching television. The patient appears to be agitated and irritable. Otherwise, the patient appears to be in no acute distress. OBJECTIVE: VITAL SIGNS: Temperature 97.6, heart rate 78, respirations 20, 98% on room air. HEENT: Head is atraumatic and normocephalic. Eyes: Bilateral conjunctivae are clear. Bilateral pupils are equally round and reactive. NECK: Supple. No JVD. CARDIOVASCULAR: S1 and S2, without murmur. PULMONARY: Clear to auscultation. GASTROINTESTINAL: Abdomen soft and nontender without guarding. Positive bowel sounds. MUSCULOSKELETAL: No clubbing. No cyanosis noted. ASSESSMENT: 1. Psychosis. 2. Hypertension. 3. Seizure disorder. 4. Gastroesophageal reflux disease. PLAN: We will keep the patient in inpatient Psychiatric Unit, will follow up with a psychiatrist per patient's condition and behavior. Treatment plans were discussed with the patient's nurse. Treatment plans were discussed with Dr. Redmond. JOB# [id number]
[2017-08-03] MEDS: Albuterol/Ipratropium Neb 3 ML AERS HHN SCH ×4 (07:09→20:34)
--- NOTE | 2017-08-03 08:43 | General Progress Note ---
Subjective - Review of Systems Events since last encounter: patient awake seen and examined seem irritable, no signs of pain Objective - Results Result Diagrams: 07/26/17 06:55 07/25/17 20:10 Recent Labs: Laboratory Last Values WBC 6.7 Th/cmm (4.8-10.8) 07/26/17 06:55 RBC 4.40 Mil/cmm (3.80-5.20) 07/26/17 06:55 Hgb 12.8 gm/dL (12-16) 07/26/17 06:55 Hct 38.1 % (41.0-60) L 07/26/17 06:55 MCV 86.7 fl (81-100) 07/26/17 06:55 MCH 29.0 pg (27.0-31.0) 07/26/17 06:55 MCHC Differential 33.4 pg (28.0-36.0) 07/26/17 06:55 RDW 13.9 % (11.5-20.0) 07/26/17 06:55 Plt Count 193 Th/cmm (150-400) 07/26/17 06:55 MPV 9.3 fl 07/26/17 06:55 Neutrophils % 60.4 % (40.0-80.0) 07/26/17 06:55 Lymphocytes % 30.2 % (20.0-50.0) 07/26/17 06:55 Monocytes % 6.7 % (2.0-10.0) 07/26/17 06:55 Eosinophils % 2.2 % (0.0-5.0) 07/26/17 06:55 Basophils % 0.5 % (0.0-2.0) 07/26/17 06:55 Sodium 140 mEq/L (136-145) 07/25/17 20:10 Potassium 3.8 mEq/L (3.5-5.1) 07/25/17 20:10 Chloride 109 mEq/L (98-107) H 07/25/17 20:10 Carbon Dioxide 17.2 mEq/L (21.0-31.0) L 07/25/17 20:10 Anion Gap 17.6 (7.0-16.0) H 07/25/17 20:10 BUN 16 mg/dL (7-25) 07/25/17 20:10 Creatinine 0.9 mg/dL (0.6-1.2) 07/25/17 20:10 Est GFR ( Amer) TNP 07/25/17 20:10 Est GFR (Non-Af Amer) TNP 07/25/17 20:10 BUN/Creatinine Ratio 17.8 07/25/17 20:10 Glucose 87 mg/dL (70-105) 07/25/17 20:10 Calcium 9.2 mg/dL (8.6-10.3) 07/25/17 20:10 Total Bilirubin 0.3 mg/dL (0.3-1.0) 07/25/17 20:10 AST 21 U/L (13-39) 07/25/17 20:10 ALT 7 U/L (7-52) 07/25/17 20:10 Alkaline Phosphatase 63 U/L (34-104) 07/25/17 20:10 Total Protein 7.7 gm/dL (6.0-8.3) 07/25/17 20:10 Albumin 3.9 gm/dL (3.7-5.3) 07/25/17 20:10 Globulin 3.8 gm/dL 07/25/17 20:10 Albumin/Globulin Ratio 1.0 (1.0-1.8) 07/25/17 20:10 TSH 1.23 uIU/ml (0.34-5.60) 07/25/17 20:10 Urine Source RANDOM 07/25/17 22:40 Urine Color YELLOW 07/25/17 22:40 Urine Clarity CLEAR (CLEAR) 07/25/17 22:40 Urine pH 6.0 (4.6 - 8.0) 07/25/17 22:40 Ur Specific [place] 1.015 (1.005-1.030) 07/25/17 22:40 Urine Protein NEGATIVE mg/dL (NEGATIVE) 07/25/17 22:40 Urine Glucose (UA) NEGATIVE mg/dL (NEGATIVE) 07/25/17 22:40 Urine Ketones NEGATIVE mg/dL (NEGATIVE) 07/25/17 22:40 Urine Blood NEGATIVE (NEGATIVE) 07/25/17 22:40 Urine Nitrate NEGATIVE (NEGATIVE) 07/25/17 22:40 Urine Bilirubin NEGATIVE (NEGATIVE) 07/25/17 22:40 Urine Urobilinogen 0.2 E.U./dL (0.2 - 1.0) 07/25/17 22:40 Ur Leukocyte Esterase NEGATIVE (NEGATIVE) 07/25/17 22:40 Urine RBC 0-2 /hpf (0-5) 07/25/17 22:40 Urine WBC 0-2 /hpf (0-5) 07/25/17 22:40 Ur Epithelial Cells FEW /lpf (FEW) 07/25/17 22:40 Urine Bacteria FEW /hpf (NONE SEEN) 07/25/17 22:40 - Physical Exam Vitals and I&O: Vital Signs Temp 97.2 F 08/03/17 06:40 Pulse 82 08/03/17 07:11 Resp 18 08/03/17 07:11 BP 146/83 08/03/17 06:40 Pulse Ox 95 08/03/17 07:11 Intake & Output 08/02/17 08/03/17 08/03/17 18:59 06:59 18:59 Intake Total 960 120 Balance 960 120 Intake: Oral 960 120 Other: # Voids 3 3 # Bowel Movements 0 Active Medications: Current Medications Acetaminophen (Tylenol) 650 mg PO Q4HR PRN PRN Reason: Mild Pain / Temp above 100 Stop: 09/23/17 23:57 Last Admin: 07/29/17 15:44 Dose: 650 mg Acetaminophen (Tylenol) 650 mg PO Q4HR PRN PRN Reason: TEMP >99.9 OR PAIN Stop: 09/24/17 10:21 Al Hydrox/Mg Hydrox/Simethicone (Maalox) 30 ml PO Q4HR PRN PRN Reason: GI DISTRESS Stop: 09/23/17 23:57 Albuterol/Ipratropium (Duoneb Neb) 3 ml HHN [id number] [facility] Stop: 09/25/17 10:59 Last Admin: 08/03/17 07:09 Dose: 3 ml Albuterol/Ipratropium (Duoneb Neb) 3 ml HHN Q4HRT PRN PRN Reason: Wheezing Stop: 09/25/17 09:02 Ascorbic Acid (Vitamin C) 500 mg PO DAILY [facility] Stop: 09/24/17 08:59 Last Admin: 08/02/17 09:16 Dose: 500 mg Donepezil HCl (Aricept) 10 mg PO HS [facility] Stop: 09/24/17 20:59 Last Admin: 08/02/17 20:50 Dose: 10 mg Famotidine (Pepcid) 20 mg PO DAILY [facility] Stop: 09/24/17 08:59 Last Admin: 08/02/17 09:15 Dose: 20 mg Gabapentin (Neurontin) 300 mg PO BID [facility] Stop: 09/24/17 08:59 Last Admin: 08/02/17 17:32 Dose: 300 mg Magnesium Hydroxide (Milk Of Magnesia) 30 ml PO Q24H PRN PRN Reason: IF NO BM IN THREE DAYS Stop: 09/24/17 10:21 Memantine (Namenda) 5 mg PO DAILY [facility] Stop: 09/28/17 08:59 Last Admin: 08/02/17 09:15 Dose: 5 mg Multivitamins/Vitamin C (Theragran) 1 tab PO DAILY [facility] Stop: 09/24/17 08:59 Last Admin: 08/02/17 09:15 Dose: 1 tab Olanzapine (Zyprexa) 7.5 mg PO HS [facility] PRN Reason: Protocol Stop: 09/30/17 20:59 Last Admin: 08/02/17 20:50 Dose: 7.5 mg Pyridoxine HCl (Vitamin B6) 25 mg PO DAILY [facility] Stop: 09/24/17 08:59 Last Admin: 08/02/17 09:16 Dose: 25 mg Assessment/Plan - Problem List Patient Problems: All Active Problems AGGRESSIVE BEHAVIOR AND VERBAL ABUSE (Acute) Nutritional Asmnt/Malnutr-PDOC - Dietary Evaluation Malnutrition Findings (Please click <Entered> for more info): Nutritional Asmnt/Malnutrition Start: 08/01/17 13: 49 Text: Status: Complete Freq: Document 08/01/17 13:49 HEN (Rec: 08/01/17 14:01 [email or web address]) Nutritional Asmnt/Malnutrition Patient General Information Nutritional Screening Low Risk Diagnosis psychosis NOS Pertinent Medical Hx/Surgical Hx ESRD, sezirues, arthritis dementia, polyneuropathy, anemia, cataract surgery, schizoaffective disorder Subjective Information Per EMR PO intake 75% over the past 2 days. Per nurse note, pt is still confused. Current Diet Order/ Nutrition Support regular Pertinent Medications vit C, theragran, vitamin B6 Pertinent Labs 07/25 cl 109 Nutritional Hx/Data Height 1.52 m Height (Calculated Centimeters) 152.4 Current Weight (lbs) 67.585 kg Weight (Calculated Kilograms) 67.6 Weight (Calculated Grams) 52838.3 [place] Body Weight 100 % [place] Body Weight 149 Body Mass Index (BMI) 29.0 Weight Status Overweight GI Symptoms GI Symptoms None Last BM no BM on 07/27-07/29 Difficult in: None Skin Integrity/Comment: intact Current %PO Good (75-100%) Estimated Nutritional Goals BEE in Kcals: Adj wt of IBW Calories/Kcals/Kg 25-30 Kcals Calculated [id number] Protein: Adj wt of IBW Protein g/k Protein Calculated 51 Fluid: ml 1275-1530ml (1ml/kcal) Nutritional Problem No current Nutrition Prob Problem N/A Intervention/Recommendation Comments 1. Continue with regular diet as ordered. 2. Monitor PO intake, wt, labs and skin integrity 3. F/U as low risk in 7 days, 08/08 Expected Outcomes/Goals Expected Outcomes/Goals 1. PO intake to meet at least 75% of nutritional needs. 2. Wt stability, skin to remain intact, labs to approach WNL.
--- NOTE | 2017-08-03 09:05 | Progress Notes ---
DATE: 08/01/2017 SUBJECTIVE: Chart reviewed and the patient interviewed. Also discussed the patient's condition with the staff and reviewed records and labs. The patient is still anxious and she is still in an irritable mood. The patient slept only 4 hours. The patient also is still coherent and guarded and she ____ and talking to herself. Also, she is confused and at the same time impulsive. The patient also is easily agitated. Otherwise, the patient is compliant with taking her medications with no side effects of medications. ASSESSMENT: The patient is still psychotic and agitated. TREATMENT PLAN: We will increase Zyprexa to 7.5 mg at bedtime. Also, continue gabapentin 300 mg twice a day and Namenda 5 mg twice a day. Also, continue to work on behavioral modification. JOB# [id number]
[2017-08-03] MEDS: Multivitamin Tab PO SCH (09:33)
--- NOTE | 2017-08-04 05:01 | Progress Notes ---
DATE: 08/03/2017 SUBJECTIVE: The patient in the hospital, aggressive behaviors, verbally abusive, disheveled, unkempt, rambling speech, history of dementia. The patient with ongoing confusion episodes. Not making any sense. When I asked her where she is, she states [facility]. When I asked her what type of place this is, she states, "[place]." Nonsensical responses or at least responses that are not able to really comprehend. 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 Remains confused, unpredictable, mumbles to self. Still with some periods of agitation. PLAN: We will continue to monitor. Given her ongoing symptoms, she is not safe for discharge. Still remains confused, disorderly, unruly. Medications were noted. Currently on Zyprexa. JOB# [id number]
[2017-08-04] MEDS: Albuterol/Ipratropium Neb 3 ML AERS HHN SCH ×4 (07:10→19:57)
[2017-08-04] MEDS: Multivitamin Tab PO SCH (09:25)
--- NOTE | 2017-08-04 14:19 | General Progress Note ---
Subjective - Review of Systems Events since last encounter: patient irritable with no signs of pain Objective - Results Result Diagrams: 07/26/17 06:55 07/25/17 20:10 Recent Labs: Laboratory Last Values WBC 6.7 Th/cmm (4.8-10.8) 07/26/17 06:55 RBC 4.40 Mil/cmm (3.80-5.20) 07/26/17 06:55 Hgb 12.8 gm/dL (12-16) 07/26/17 06:55 Hct 38.1 % (41.0-60) L 07/26/17 06:55 MCV 86.7 fl (81-100) 07/26/17 06:55 MCH 29.0 pg (27.0-31.0) 07/26/17 06:55 MCHC Differential 33.4 pg (28.0-36.0) 07/26/17 06:55 RDW 13.9 % (11.5-20.0) 07/26/17 06:55 Plt Count 193 Th/cmm (150-400) 07/26/17 06:55 MPV 9.3 fl 07/26/17 06:55 Neutrophils % 60.4 % (40.0-80.0) 07/26/17 06:55 Lymphocytes % 30.2 % (20.0-50.0) 07/26/17 06:55 Monocytes % 6.7 % (2.0-10.0) 07/26/17 06:55 Eosinophils % 2.2 % (0.0-5.0) 07/26/17 06:55 Basophils % 0.5 % (0.0-2.0) 07/26/17 06:55 Sodium 140 mEq/L (136-145) 07/25/17 20:10 Potassium 3.8 mEq/L (3.5-5.1) 07/25/17 20:10 Chloride 109 mEq/L (98-107) H 07/25/17 20:10 Carbon Dioxide 17.2 mEq/L (21.0-31.0) L 07/25/17 20:10 Anion Gap 17.6 (7.0-16.0) H 07/25/17 20:10 BUN 16 mg/dL (7-25) 07/25/17 20:10 Creatinine 0.9 mg/dL (0.6-1.2) 07/25/17 20:10 Est GFR ( Amer) TNP 07/25/17 20:10 Est GFR (Non-Af Amer) TNP 07/25/17 20:10 BUN/Creatinine Ratio 17.8 07/25/17 20:10 Glucose 87 mg/dL (70-105) 07/25/17 20:10 Calcium 9.2 mg/dL (8.6-10.3) 07/25/17 20:10 Total Bilirubin 0.3 mg/dL (0.3-1.0) 07/25/17 20:10 AST 21 U/L (13-39) 07/25/17 20:10 ALT 7 U/L (7-52) 07/25/17 20:10 Alkaline Phosphatase 63 U/L (34-104) 07/25/17 20:10 Total Protein 7.7 gm/dL (6.0-8.3) 07/25/17 20:10 Albumin 3.9 gm/dL (3.7-5.3) 07/25/17 20:10 Globulin 3.8 gm/dL 07/25/17 20:10 Albumin/Globulin Ratio 1.0 (1.0-1.8) 07/25/17 20:10 TSH 1.23 uIU/ml (0.34-5.60) 07/25/17 20:10 Urine Source RANDOM 07/25/17 22:40 Urine Color YELLOW 07/25/17 22:40 Urine Clarity CLEAR (CLEAR) 07/25/17 22:40 Urine pH 6.0 (4.6 - 8.0) 07/25/17 22:40 Ur Specific [place] 1.015 (1.005-1.030) 07/25/17 22:40 Urine Protein NEGATIVE mg/dL (NEGATIVE) 07/25/17 22:40 Urine Glucose (UA) NEGATIVE mg/dL (NEGATIVE) 07/25/17 22:40 Urine Ketones NEGATIVE mg/dL (NEGATIVE) 07/25/17 22:40 Urine Blood NEGATIVE (NEGATIVE) 07/25/17 22:40 Urine Nitrate NEGATIVE (NEGATIVE) 07/25/17 22:40 Urine Bilirubin NEGATIVE (NEGATIVE) 07/25/17 22:40 Urine Urobilinogen 0.2 E.U./dL (0.2 - 1.0) 07/25/17 22:40 Ur Leukocyte Esterase NEGATIVE (NEGATIVE) 07/25/17 22:40 Urine RBC 0-2 /hpf (0-5) 07/25/17 22:40 Urine WBC 0-2 /hpf (0-5) 07/25/17 22:40 Ur Epithelial Cells FEW /lpf (FEW) 07/25/17 22:40 Urine Bacteria FEW /hpf (NONE SEEN) 07/25/17 22:40 - Physical Exam Vitals and I&O: Vital Signs Temp 97.4 F 08/04/17 05:49 Pulse 75 08/04/17 10:48 Resp 18 08/04/17 10:48 BP 142/71 08/04/17 05:49 Pulse Ox 97 08/04/17 10:48 Intake & Output 08/03/17 08/04/17 08/04/17 18:59 06:59 18:59 Intake Total 900 240 Balance 900 240 Intake: Oral 900 240 Other: # Voids 3 1 # Bowel Movements 0 Active Medications: Current Medications Acetaminophen (Tylenol) 650 mg PO Q4HR PRN PRN Reason: Mild Pain / Temp above 100 Stop: 09/23/17 23:57 Last Admin: 07/29/17 15:44 Dose: 650 mg Acetaminophen (Tylenol) 650 mg PO Q4HR PRN PRN Reason: TEMP >99.9 OR PAIN Stop: 09/24/17 10:21 Al Hydrox/Mg Hydrox/Simethicone (Maalox) 30 ml PO Q4HR PRN PRN Reason: GI DISTRESS Stop: 09/23/17 23:57 Albuterol/Ipratropium (Duoneb Neb) 3 ml HHN [id number] [facility] Stop: 09/25/17 10:59 Last Admin: 08/04/17 10:48 Dose: Not Given Albuterol/Ipratropium (Duoneb Neb) 3 ml HHN Q4HRT PRN PRN Reason: Wheezing Stop: 09/25/17 09:02 Ascorbic Acid (Vitamin C) 500 mg PO DAILY [facility] Stop: 09/24/17 08:59 Last Admin: 08/04/17 09:25 Dose: 500 mg Donepezil HCl (Aricept) 10 mg PO HS [facility] Stop: 09/24/17 20:59 Last Admin: 08/03/17 21:33 Dose: 10 mg Famotidine (Pepcid) 20 mg PO DAILY [facility] Stop: 09/24/17 08:59 Last Admin: 08/04/17 09:25 Dose: 20 mg Gabapentin (Neurontin) 300 mg PO BID [facility] Stop: 09/24/17 08:59 Last Admin: 08/04/17 09:25 Dose: 300 mg Magnesium Hydroxide (Milk Of Magnesia) 30 ml PO Q24H PRN PRN Reason: IF NO BM IN THREE DAYS Stop: 09/24/17 10:21 Memantine (Namenda) 5 mg PO DAILY [facility] Stop: 09/28/17 08:59 Last Admin: 08/04/17 09:25 Dose: 5 mg Multivitamins/Vitamin C (Theragran) 1 tab PO DAILY [facility] Stop: 09/24/17 08:59 Last Admin: 08/04/17 09:25 Dose: 1 tab Olanzapine (Zyprexa) 7.5 mg PO HS [facility] PRN Reason: Protocol Stop: 09/30/17 20:59 Last Admin: 08/03/17 21:33 Dose: 7.5 mg Pyridoxine HCl (Vitamin B6) 25 mg PO DAILY [facility] Stop: 09/24/17 08:59 Last Admin: 08/04/17 09:25 Dose: 25 mg Assessment/Plan - Problem List Patient Problems: All Active Problems AGGRESSIVE BEHAVIOR AND VERBAL ABUSE (Acute) Nutritional Asmnt/Malnutr-PDOC - Dietary Evaluation Malnutrition Findings (Please click <Entered> for more info): Nutritional Asmnt/Malnutrition Start: 08/01/17 13: 49 Text: Status: Complete Freq: Document 08/01/17 13:49 NICK (Rec: 08/01/17 14:01 NICK [email or web address]) Nutritional Asmnt/Malnutrition Patient General Information Nutritional Screening Low Risk Diagnosis psychosis NOS Pertinent Medical Hx/Surgical Hx ESRD, sezirues, arthritis dementia, polyneuropathy, anemia, cataract surgery, schizoaffective disorder Subjective Information Per EMR PO intake 75% over the past 2 days. Per nurse note, pt is still confused. Current Diet Order/ Nutrition Support regular Pertinent Medications vit C, theragran, vitamin B6 Pertinent Labs 07/25 cl 109 Nutritional Hx/Data Height 1.52 m Height (Calculated Centimeters) 152.4 Current Weight (lbs) 67.585 kg Weight (Calculated Kilograms) 67.6 Weight (Calculated Grams) 13236.3 [place] Body Weight 100 % [place] Body Weight 149 Body Mass Index (BMI) 29.0 Weight Status Overweight GI Symptoms GI Symptoms None Last BM no BM on 07/27-07/29 Difficult in: None Skin Integrity/Comment: intact Current %PO Good (75-100%) Estimated Nutritional Goals BEE in Kcals: Adj wt of IBW Calories/Kcals/Kg 25-30 Kcals Calculated 3294-6265 Protein: Adj wt of IBW Protein g/k Protein Calculated 51 Fluid: ml 1275-1530ml (1ml/kcal) Nutritional Problem No current Nutrition Prob Problem N/A Intervention/Recommendation Comments 1. Continue with regular diet as ordered. 2. Monitor PO intake, wt, labs and skin integrity 3. F/U as low risk in 7 days, 08/08 Expected Outcomes/Goals Expected Outcomes/Goals 1. PO intake to meet at least 75% of nutritional needs. 2. Wt stability, skin to remain intact, labs to approach WNL.
[2017-08-05] MEDS: Albuterol/Ipratropium Neb 3 ML AERS HHN SCH ×4 (07:22→19:15)
[2017-08-05] MEDS: Multivitamin Tab PO SCH (08:52)
--- NOTE | 2017-08-05 23:03 | Progress Notes ---
DATE: 08/04/2017 SUBJECTIVE: Chart reviewed and the patient interviewed. Also, discussed the patient's condition with the staff and reviewed records and labs. The patient is still anxious and resisting care. The patient also is still having episodes of anger and irritability, but she seems to be slightly calmer than before. The patient also still needs redirections and needs prompt instructions to follow. Otherwise, the patient continue to comply with taking her medications. The patient denies any side effects of medications. ASSESSMENT: The patient is still psychotic and needs close monitoring. TREATMENT PLAN: Continue to monitor her behavior and her condition closely. Also, continue to work on her ineffective coping and her compliance with taking her medications and monitoring her psychotropic medications. [facility]# [id number]
--- NOTE | 2017-08-05 23:19 | Progress Notes ---
DATE: SUBJECTIVE: Chart reviewed and the patient interviewed. Also discussed the patient's condition with the staff and reviewed the records and labs. The patient is still anxious and she is still easily irritable and agitated. The patient also is still resisting care. The patient also is still aggressive with the staff when they try and help her with her ADLs. Otherwise, the patient continued to comply with taking her medications and patient denies any side effect of medications. ASSESSMENT: The patient is still aggressive, but is calmer than before. TREATMENT PLAN: Continue to monitor her behavior and her condition closely. Also continue adjusting psychotropic medications. Also, continue to work on her ineffective coping and poor impulse control. JOB# [id number]
[2017-08-06] MEDS: Albuterol/Ipratropium Neb 3 ML AERS HHN SCH ×4 (07:51→20:15)
[2017-08-06] MEDS: Multivitamin Tab PO SCH (08:29)
--- NOTE | 2017-08-06 08:59 | General Progress Note ---
Subjective - Review of Systems Events since last encounter: patient still irritable in no distress Objective - Results Result Diagrams: 07/26/17 06:55 07/25/17 20:10 Recent Labs: Laboratory Last Values WBC 6.7 Th/cmm (4.8-10.8) 07/26/17 06:55 RBC 4.40 Mil/cmm (3.80-5.20) 07/26/17 06:55 Hgb 12.8 gm/dL (12-16) 07/26/17 06:55 Hct 38.1 % (41.0-60) L 07/26/17 06:55 MCV 86.7 fl (81-100) 07/26/17 06:55 MCH 29.0 pg (27.0-31.0) 07/26/17 06:55 MCHC Differential 33.4 pg (28.0-36.0) 07/26/17 06:55 RDW 13.9 % (11.5-20.0) 07/26/17 06:55 Plt Count 193 Th/cmm (150-400) 07/26/17 06:55 MPV 9.3 fl 07/26/17 06:55 Neutrophils % 60.4 % (40.0-80.0) 07/26/17 06:55 Lymphocytes % 30.2 % (20.0-50.0) 07/26/17 06:55 Monocytes % 6.7 % (2.0-10.0) 07/26/17 06:55 Eosinophils % 2.2 % (0.0-5.0) 07/26/17 06:55 Basophils % 0.5 % (0.0-2.0) 07/26/17 06:55 Sodium 140 mEq/L (136-145) 07/25/17 20:10 Potassium 3.8 mEq/L (3.5-5.1) 07/25/17 20:10 Chloride 109 mEq/L (98-107) H 07/25/17 20:10 Carbon Dioxide 17.2 mEq/L (21.0-31.0) L 07/25/17 20:10 Anion Gap 17.6 (7.0-16.0) H 07/25/17 20:10 BUN 16 mg/dL (7-25) 07/25/17 20:10 Creatinine 0.9 mg/dL (0.6-1.2) 07/25/17 20:10 Est GFR ( Amer) TNP 07/25/17 20:10 Est GFR (Non-Af Amer) TNP 07/25/17 20:10 BUN/Creatinine Ratio 17.8 07/25/17 20:10 Glucose 87 mg/dL (70-105) 07/25/17 20:10 Calcium 9.2 mg/dL (8.6-10.3) 07/25/17 20:10 Total Bilirubin 0.3 mg/dL (0.3-1.0) 07/25/17 20:10 AST 21 U/L (13-39) 07/25/17 20:10 ALT 7 U/L (7-52) 07/25/17 20:10 Alkaline Phosphatase 63 U/L (34-104) 07/25/17 20:10 Total Protein 7.7 gm/dL (6.0-8.3) 07/25/17 20:10 Albumin 3.9 gm/dL (3.7-5.3) 07/25/17 20:10 Globulin 3.8 gm/dL 07/25/17 20:10 Albumin/Globulin Ratio 1.0 (1.0-1.8) 07/25/17 20:10 TSH 1.23 uIU/ml (0.34-5.60) 07/25/17 20:10 Urine Source RANDOM 07/25/17 22:40 Urine Color YELLOW 07/25/17 22:40 Urine Clarity CLEAR (CLEAR) 07/25/17 22:40 Urine pH 6.0 (4.6 - 8.0) 07/25/17 22:40 Ur Specific [place] 1.015 (1.005-1.030) 07/25/17 22:40 Urine Protein NEGATIVE mg/dL (NEGATIVE) 07/25/17 22:40 Urine Glucose (UA) NEGATIVE mg/dL (NEGATIVE) 07/25/17 22:40 Urine Ketones NEGATIVE mg/dL (NEGATIVE) 07/25/17 22:40 Urine Blood NEGATIVE (NEGATIVE) 07/25/17 22:40 Urine Nitrate NEGATIVE (NEGATIVE) 07/25/17 22:40 Urine Bilirubin NEGATIVE (NEGATIVE) 07/25/17 22:40 Urine Urobilinogen 0.2 E.U./dL (0.2 - 1.0) 07/25/17 22:40 Ur Leukocyte Esterase NEGATIVE (NEGATIVE) 07/25/17 22:40 Urine RBC 0-2 /hpf (0-5) 07/25/17 22:40 Urine WBC 0-2 /hpf (0-5) 07/25/17 22:40 Ur Epithelial Cells FEW /lpf (FEW) 07/25/17 22:40 Urine Bacteria FEW /hpf (NONE SEEN) 07/25/17 22:40 - Physical Exam Vitals and I&O: Vital Signs Temp 97.1 F 08/06/17 06:47 Pulse 64 08/06/17 06:47 Resp 18 08/06/17 06:47 BP 143/63 08/06/17 06:47 Pulse Ox 98 08/06/17 06:47 Intake & Output 08/05/17 08/06/17 08/06/17 18:59 06:59 18:59 Intake Total 700 240 Balance 700 240 Intake: Oral 700 240 Other: # Voids 3 1 # Bowel Movements 0 Active Medications: Current Medications Acetaminophen (Tylenol) 650 mg PO Q4HR PRN PRN Reason: Mild Pain / Temp above 100 Stop: 09/23/17 23:57 Last Admin: 07/29/17 15:44 Dose: 650 mg Acetaminophen (Tylenol) 650 mg PO Q4HR PRN PRN Reason: TEMP >99.9 OR PAIN Stop: 09/24/17 10:21 Al Hydrox/Mg Hydrox/Simethicone (Maalox) 30 ml PO Q4HR PRN PRN Reason: GI DISTRESS Stop: 09/23/17 23:57 Albuterol/Ipratropium (Duoneb Neb) 3 ml [id number] Stop: 09/25/17 10:59 Last Admin: 08/06/17 07:51 Dose: Not Given Albuterol/Ipratropium (Duoneb Neb) 3 ml HHN Q4HRT PRN PRN Reason: Wheezing Stop: 09/25/17 09:02 Ascorbic Acid (Vitamin C) 500 mg PO DAILY [facility] Stop: 09/24/17 08:59 Last Admin: 08/06/17 08:29 Dose: 500 mg Donepezil HCl (Aricept) 10 mg PO HS [facility] Stop: 09/24/17 20:59 Last Admin: 08/05/17 20:31 Dose: 10 mg Famotidine (Pepcid) 20 mg PO DAILY [facility] Stop: 09/24/17 08:59 Last Admin: 08/06/17 08:29 Dose: 20 mg Gabapentin (Neurontin) 300 mg PO BID [facility] Stop: 09/24/17 08:59 Last Admin: 08/06/17 08:29 Dose: 300 mg Magnesium Hydroxide (Milk Of Magnesia) 30 ml PO Q24H PRN PRN Reason: IF NO BM IN THREE DAYS Stop: 09/24/17 10:21 Memantine (Namenda) 5 mg PO DAILY [facility] Stop: 09/28/17 08:59 Last Admin: 08/06/17 08:29 Dose: 5 mg Multivitamins/Vitamin C (Theragran) 1 tab PO DAILY [facility] Stop: 09/24/17 08:59 Last Admin: 08/06/17 08:29 Dose: 1 tab Olanzapine (Zyprexa) 10 mg PO HS [facility] PRN Reason: Protocol Stop: 10/05/17 06:25 Pyridoxine HCl (Vitamin B6) 25 mg PO DAILY [facility] Stop: 09/24/17 08:59 Last Admin: 08/06/17 08:29 Dose: 25 mg Assessment/Plan - Problem List Patient Problems: All Active Problems AGGRESSIVE BEHAVIOR AND VERBAL ABUSE (Acute) Nutritional Asmnt/Malnutr-PDOC - Dietary Evaluation Malnutrition Findings (Please click <Entered> for more info): Nutritional Asmnt/Malnutrition Start: 08/01/17 13: 49 Text: Status: Complete Freq: Document 08/01/17 13:49 DANNY (Rec: 08/01/17 14:01 POLLO [email or web address]) Nutritional Asmnt/Malnutrition Patient General Information Nutritional Screening Low Risk Diagnosis psychosis NOS Pertinent Medical Hx/Surgical Hx ESRD, sezirues, arthritis dementia, polyneuropathy, anemia, cataract surgery, schizoaffective disorder Subjective Information Per EMR PO intake 75% over the past 2 days. Per nurse note, pt is still confused. Current Diet Order/ Nutrition Support regular Pertinent Medications vit C, theragran, vitamin B6 Pertinent Labs 07/25 cl 109 Nutritional Hx/Data Height 1.52 m Height (Calculated Centimeters) 152.4 Current Weight (lbs) 67.585 kg Weight (Calculated Kilograms) 67.6 Weight (Calculated Grams) 05428.3 [place] Body Weight 100 % [place] Body Weight 149 Body Mass Index (BMI) 29.0 Weight Status Overweight GI Symptoms GI Symptoms None Last BM no BM on 07/27-07/29 Difficult in: None Skin Integrity/Comment: intact Current %PO Good (75-100%) Estimated Nutritional Goals BEE in Kcals: Adj wt of IBW Calories/Kcals/Kg 25-30 Kcals Calculated 1495-8135 Protein: Adj wt of IBW Protein g/k Protein Calculated 51 Fluid: ml 1275-1530ml (1ml/kcal) Nutritional Problem No current Nutrition Prob Problem N/A Intervention/Recommendation Comments 1. Continue with regular diet as ordered. 2. Monitor PO intake, wt, labs and skin integrity 3. F/U as low risk in 7 days, 08/08 Expected Outcomes/Goals Expected Outcomes/Goals 1. PO intake to meet at least 75% of nutritional needs. 2. Wt stability, skin to remain intact, labs to approach WNL.
[2017-08-07] MEDS: Albuterol/Ipratropium Neb 3 ML AERS HHN SCH ×4 (07:39→19:50)
--- NOTE | 2017-08-07 08:34 | General Progress Note ---
Subjective - Review of Systems Events since last encounter: in no distress Objective - Results Result Diagrams: 07/26/17 06:55 07/25/17 20:10 Recent Labs: Laboratory Last Values WBC 6.7 Th/cmm (4.8-10.8) 07/26/17 06:55 RBC 4.40 Mil/cmm (3.80-5.20) 07/26/17 06:55 Hgb 12.8 gm/dL (12-16) 07/26/17 06:55 Hct 38.1 % (41.0-60) L 07/26/17 06:55 MCV 86.7 fl (81-100) 07/26/17 06:55 MCH 29.0 pg (27.0-31.0) 07/26/17 06:55 MCHC Differential 33.4 pg (28.0-36.0) 07/26/17 06:55 RDW 13.9 % (11.5-20.0) 07/26/17 06:55 Plt Count 193 Th/cmm (150-400) 07/26/17 06:55 MPV 9.3 fl 07/26/17 06:55 Neutrophils % 60.4 % (40.0-80.0) 07/26/17 06:55 Lymphocytes % 30.2 % (20.0-50.0) 07/26/17 06:55 Monocytes % 6.7 % (2.0-10.0) 07/26/17 06:55 Eosinophils % 2.2 % (0.0-5.0) 07/26/17 06:55 Basophils % 0.5 % (0.0-2.0) 07/26/17 06:55 Sodium 140 mEq/L (136-145) 07/25/17 20:10 Potassium 3.8 mEq/L (3.5-5.1) 07/25/17 20:10 Chloride 109 mEq/L (98-107) H 07/25/17 20:10 Carbon Dioxide 17.2 mEq/L (21.0-31.0) L 07/25/17 20:10 Anion Gap 17.6 (7.0-16.0) H 07/25/17 20:10 BUN 16 mg/dL (7-25) 07/25/17 20:10 Creatinine 0.9 mg/dL (0.6-1.2) 07/25/17 20:10 Est GFR ( Amer) TNP 07/25/17 20:10 Est GFR (Non-Af Amer) TNP 07/25/17 20:10 BUN/Creatinine Ratio 17.8 07/25/17 20:10 Glucose 87 mg/dL (70-105) 07/25/17 20:10 Calcium 9.2 mg/dL (8.6-10.3) 07/25/17 20:10 Total Bilirubin 0.3 mg/dL (0.3-1.0) 07/25/17 20:10 AST 21 U/L (13-39) 07/25/17 20:10 ALT 7 U/L (7-52) 07/25/17 20:10 Alkaline Phosphatase 63 U/L (34-104) 07/25/17 20:10 Total Protein 7.7 gm/dL (6.0-8.3) 07/25/17 20:10 Albumin 3.9 gm/dL (3.7-5.3) 07/25/17 20:10 Globulin 3.8 gm/dL 07/25/17 20:10 Albumin/Globulin Ratio 1.0 (1.0-1.8) 07/25/17 20:10 TSH 1.23 uIU/ml (0.34-5.60) 07/25/17 20:10 Urine Source RANDOM 07/25/17 22:40 Urine Color YELLOW 07/25/17 22:40 Urine Clarity CLEAR (CLEAR) 07/25/17 22:40 Urine pH 6.0 (4.6 - 8.0) 07/25/17 22:40 Ur Specific [place] 1.015 (1.005-1.030) 07/25/17 22:40 Urine Protein NEGATIVE mg/dL (NEGATIVE) 07/25/17 22:40 Urine Glucose (UA) NEGATIVE mg/dL (NEGATIVE) 07/25/17 22:40 Urine Ketones NEGATIVE mg/dL (NEGATIVE) 07/25/17 22:40 Urine Blood NEGATIVE (NEGATIVE) 07/25/17 22:40 Urine Nitrate NEGATIVE (NEGATIVE) 07/25/17 22:40 Urine Bilirubin NEGATIVE (NEGATIVE) 07/25/17 22:40 Urine Urobilinogen 0.2 E.U./dL (0.2 - 1.0) 07/25/17 22:40 Ur Leukocyte Esterase NEGATIVE (NEGATIVE) 07/25/17 22:40 Urine RBC 0-2 /hpf (0-5) 07/25/17 22:40 Urine WBC 0-2 /hpf (0-5) 07/25/17 22:40 Ur Epithelial Cells FEW /lpf (FEW) 07/25/17 22:40 Urine Bacteria FEW /hpf (NONE SEEN) 07/25/17 22:40 - Physical Exam Vitals and I&O: Vital Signs Temp 97.3 F 08/07/17 06:08 Pulse 83 08/07/17 07:43 Resp 18 08/07/17 07:43 BP 113/69 08/07/17 06:08 Pulse Ox 96 08/07/17 07:43 Intake & Output 08/06/17 08/07/17 08/07/17 18:59 06:59 18:59 Intake Total 1200 120 Balance 1200 120 Intake: Oral 1200 120 Other: # Voids 3 3 Active Medications: Current Medications Acetaminophen (Tylenol) 650 mg PO Q4HR PRN PRN Reason: Mild Pain / Temp above 100 Stop: 09/23/17 23:57 Last Admin: 07/29/17 15:44 Dose: 650 mg Acetaminophen (Tylenol) 650 mg PO Q4HR PRN PRN Reason: TEMP >99.9 OR PAIN Stop: 09/24/17 10:21 Al Hydrox/Mg Hydrox/Simethicone (Maalox) 30 ml PO Q4HR PRN PRN Reason: GI DISTRESS Stop: 09/23/17 23:57 Albuterol/Ipratropium (Duoneb Neb) 3 ml HHN [id number] [facility] Stop: 09/25/17 10:59 Last Admin: 08/07/17 07:39 Dose: 3 ml Albuterol/Ipratropium (Duoneb Neb) 3 ml HHN Q4HRT PRN PRN Reason: Wheezing Stop: 09/25/17 09:02 Last Admin: 08/06/17 16:36 Dose: 3 ml Ascorbic Acid (Vitamin C) 500 mg PO DAILY [facility] Stop: 09/24/17 08:59 Last Admin: 08/06/17 08:29 Dose: 500 mg Donepezil HCl (Aricept) 10 mg PO HS [facility] Stop: 09/24/17 20:59 Last Admin: 08/06/17 21:12 Dose: 10 mg Famotidine (Pepcid) 20 mg PO DAILY [facility] Stop: 09/24/17 08:59 Last Admin: 08/06/17 08:29 Dose: 20 mg Gabapentin (Neurontin) 300 mg PO BID [facility] Stop: 09/24/17 08:59 Last Admin: 08/06/17 16:43 Dose: Not Given Magnesium Hydroxide (Milk Of Magnesia) 30 ml PO Q24H PRN PRN Reason: IF NO BM IN THREE DAYS Stop: 09/24/17 10:21 Memantine (Namenda) 5 mg PO BID [facility] Stop: 10/06/17 08:59 Multivitamins/Vitamin C (Theragran) 1 tab PO DAILY [facility] Stop: 09/24/17 08:59 Last Admin: 08/06/17 08:29 Dose: 1 tab Olanzapine (Zyprexa) 10 mg PO [facility] PRN Reason: Protocol Stop: 10/05/17 06:25 Last Admin: 08/06/17 21:11 Dose: 10 mg Pyridoxine HCl (Vitamin B6) 25 mg PO DAILY [facility] Stop: 09/24/17 08:59 Last Admin: 08/06/17 08:29 Dose: 25 mg Assessment/Plan - Problem List Patient Problems: All Active Problems AGGRESSIVE BEHAVIOR AND VERBAL ABUSE (Acute) Nutritional Asmnt/Malnutr-PDOC - Dietary Evaluation Malnutrition Findings (Please click <Entered> for more info): Nutritional Asmnt/Malnutrition Start: 08/01/17 13: 49 Text: Status: Complete Freq: Document 08/01/17 13:49 NICK (Rec: 08/01/17 14:01 [email or web address] Nutritional Asmnt/Malnutrition Patient General Information Nutritional Screening Low Risk Diagnosis psychosis NOS Pertinent Medical Hx/Surgical Hx ESRD, sezirues, arthritis dementia, polyneuropathy, anemia, cataract surgery, schizoaffective disorder Subjective Information Per EMR PO intake 75% over the past 2 days. Per nurse note, pt is still confused. Current Diet Order/ Nutrition Support regular Pertinent Medications vit C, theragran, vitamin B6 Pertinent Labs 07/25 cl 109 Nutritional Hx/Data Height 1.52 m Height (Calculated Centimeters) 152.4 Current Weight (lbs) 67.585 kg Weight (Calculated Kilograms) 67.6 Weight (Calculated Grams) 62476.3 [place] Body Weight 100 % [place] Body Weight 149 Body Mass Index (BMI) 29.0 Weight Status Overweight GI Symptoms GI Symptoms None Last BM no BM on 07/27-07/29 Difficult in: None Skin Integrity/Comment: intact Current %PO Good (75-100%) Estimated Nutritional Goals BEE in Kcals: Adj wt of IBW Calories/Kcals/Kg 25-30 Kcals Calculated 1020-9125 Protein: Adj wt of IBW Protein g/k Protein Calculated 51 Fluid: ml 1275-1530ml (1ml/kcal) Nutritional Problem No current Nutrition Prob Problem N/A Intervention/Recommendation Comments 1. Continue with regular diet as ordered. 2. Monitor PO intake, wt, labs and skin integrity 3. F/U as low risk in 7 days, 08/08 Expected Outcomes/Goals Expected Outcomes/Goals 1. PO intake to meet at least 75% of nutritional needs. 2. Wt stability, skin to remain intact, labs to approach WNL.
[2017-08-07] MEDS: Multivitamin Tab PO SCH (09:16)
--- NOTE | 2017-08-07 16:28 | Progress Notes ---
DATE: SUBJECTIVE: Chart reviewed and the patient interviewed. Also discussed the patient's condition with the staff and reviewed records and labs. The patient continued to be preoccupied and she is still confused. The patient also still gets irritable and agitated at times and wants to be left alone. She also is still preoccupied and responding. The patient also still confused and she thinks that one of the patient is her son. The patient also is resisting care and she needs lots of redirections. ASSESSMENT: The patient is still psychotic and agitated. TREATMENT PLAN: Continue to monitor her behavior and her condition closely. Also, continue to monitor her behavior. Also, we will increase Zyprexa to 10 mg at bedtime and we will continue Neurontin, Aricept and Namenda. JOB# [id number]
--- NOTE | 2017-08-07 22:27 | Progress Notes ---
DATE: SUBJECTIVE: Chart reviewed and the patient interviewed. Also discussed the patient's condition with the staff and reviewed records and labs. The patient continued to be confused and forgetful. The patient also is having episodes of verbal abuse to staff and others. The patient also is still aggressive with peers and with staff. She also is a more demanding and wants things to be done her way. ASSESSMENT: The patient continued to be agitated and confused. TREATMENT PLAN: Continue to monitor her behavior and her condition closely. Also, we will increase Namenda to 5 mg twice a day and we will continue to follow up. JOB# [id number]
[2017-08-08] MEDS: Albuterol/Ipratropium Neb 3 ML AERS HHN SCH ×4 (07:20→19:23)
[2017-08-08] MEDS: Multivitamin Tab PO SCH (08:30)
--- NOTE | 2017-08-08 18:29 | General Progress Note ---
Objective - Results Result Diagrams: 07/26/17 06:55 07/25/17 20:10 Recent Labs: Laboratory Last Values WBC 6.7 Th/cmm (4.8-10.8) 07/26/17 06:55 RBC 4.40 Mil/cmm (3.80-5.20) 07/26/17 06:55 Hgb 12.8 gm/dL (12-16) 07/26/17 06:55 Hct 38.1 % (41.0-60) L 07/26/17 06:55 MCV 86.7 fl (81-100) 07/26/17 06:55 MCH 29.0 pg (27.0-31.0) 07/26/17 06:55 MCHC Differential 33.4 pg (28.0-36.0) 07/26/17 06:55 RDW 13.9 % (11.5-20.0) 07/26/17 06:55 Plt Count 193 Th/cmm (150-400) 07/26/17 06:55 MPV 9.3 fl 07/26/17 06:55 Neutrophils % 60.4 % (40.0-80.0) 07/26/17 06:55 Lymphocytes % 30.2 % (20.0-50.0) 07/26/17 06:55 Monocytes % 6.7 % (2.0-10.0) 07/26/17 06:55 Eosinophils % 2.2 % (0.0-5.0) 07/26/17 06:55 Basophils % 0.5 % (0.0-2.0) 07/26/17 06:55 Sodium 140 mEq/L (136-145) 07/25/17 20:10 Potassium 3.8 mEq/L (3.5-5.1) 07/25/17 20:10 Chloride 109 mEq/L (98-107) H 07/25/17 20:10 Carbon Dioxide 17.2 mEq/L (21.0-31.0) L 07/25/17 20:10 Anion Gap 17.6 (7.0-16.0) H 07/25/17 20:10 BUN 16 mg/dL (7-25) 07/25/17 20:10 Creatinine 0.9 mg/dL (0.6-1.2) 07/25/17 20:10 Est GFR ( Amer) TNP 07/25/17 20:10 Est GFR (Non-Af Amer) TNP 07/25/17 20:10 BUN/Creatinine Ratio 17.8 07/25/17 20:10 Glucose 87 mg/dL (70-105) 07/25/17 20:10 Calcium 9.2 mg/dL (8.6-10.3) 07/25/17 20:10 Total Bilirubin 0.3 mg/dL (0.3-1.0) 07/25/17 20:10 AST 21 U/L (13-39) 07/25/17 20:10 ALT 7 U/L (7-52) 07/25/17 20:10 Alkaline Phosphatase 63 U/L (34-104) 07/25/17 20:10 Total Protein 7.7 gm/dL (6.0-8.3) 07/25/17 20:10 Albumin 3.9 gm/dL (3.7-5.3) 07/25/17 20:10 Globulin 3.8 gm/dL 07/25/17 20:10 Albumin/Globulin Ratio 1.0 (1.0-1.8) 07/25/17 20:10 TSH 1.23 uIU/ml (0.34-5.60) 07/25/17 20:10 Urine Source RANDOM 07/25/17 22:40 Urine Color YELLOW 07/25/17 22:40 Urine Clarity CLEAR (CLEAR) 07/25/17 22:40 Urine pH 6.0 (4.6 - 8.0) 07/25/17 22:40 Ur Specific [place] 1.015 (1.005-1.030) 07/25/17 22:40 Urine Protein NEGATIVE mg/dL (NEGATIVE) 07/25/17 22:40 Urine Glucose (UA) NEGATIVE mg/dL (NEGATIVE) 07/25/17 22:40 Urine Ketones NEGATIVE mg/dL (NEGATIVE) 07/25/17 22:40 Urine Blood NEGATIVE (NEGATIVE) 07/25/17 22:40 Urine Nitrate NEGATIVE (NEGATIVE) 07/25/17 22:40 Urine Bilirubin NEGATIVE (NEGATIVE) 07/25/17 22:40 Urine Urobilinogen 0.2 E.U./dL (0.2 - 1.0) 07/25/17 22:40 Ur Leukocyte Esterase NEGATIVE (NEGATIVE) 07/25/17 22:40 Urine RBC 0-2 /hpf (0-5) 07/25/17 22:40 Urine WBC 0-2 /hpf (0-5) 07/25/17 22:40 Ur Epithelial Cells FEW /lpf (FEW) 07/25/17 22:40 Urine Bacteria FEW /hpf (NONE SEEN) 07/25/17 22:40 - Physical Exam Vitals and I&O: Vital Signs Temp 97.0 F 08/08/17 15:26 Pulse 97 08/08/17 15:26 Resp 18 08/08/17 15:26 BP 118/73 08/08/17 15:26 Pulse Ox 96 08/08/17 15:26 Intake & Output 08/07/17 08/08/17 08/08/17 18:59 06:59 18:59 Intake Total 360 120 Balance 360 120 Intake: Oral 360 120 Other: # Voids 1 3 Active Medications: Current Medications Acetaminophen (Tylenol) 650 mg PO Q4HR PRN PRN Reason: Mild Pain / Temp above 100 Stop: 09/23/17 23:57 Last Admin: 07/29/17 15:44 Dose: 650 mg Acetaminophen (Tylenol) 650 mg PO Q4HR PRN PRN Reason: TEMP >99.9 OR PAIN Stop: 09/24/17 10:21 Al Hydrox/Mg Hydrox/Simethicone (Maalox) 30 ml PO Q4HR PRN PRN Reason: GI DISTRESS Stop: 09/23/17 23:57 Albuterol/Ipratropium (Duoneb Neb) 3 ml HHN [id number] [facility] Stop: 09/25/17 10:59 Last Admin: 08/08/17 14:30 Dose: 3 ml Albuterol/Ipratropium (Duoneb Neb) 3 ml HHN Q4HRT PRN PRN Reason: Wheezing Stop: 09/25/17 09:02 Last Admin: 08/06/17 16:36 Dose: 3 ml Ascorbic Acid (Vitamin C) 500 mg PO DAILY [facility] Stop: 09/24/17 08:59 Last Admin: 08/08/17 08:30 Dose: 500 mg Donepezil HCl (Aricept) 10 mg PO HS [facility] Stop: 09/24/17 20:59 Last Admin: 08/07/17 20:19 Dose: 10 mg Famotidine (Pepcid) 20 mg PO DAILY [facility] Stop: 09/24/17 08:59 Last Admin: 08/08/17 08:31 Dose: 20 mg Gabapentin (Neurontin) 300 mg PO BID [facility] Stop: 09/24/17 08:59 Last Admin: 08/08/17 16:16 Dose: 300 mg Magnesium Hydroxide (Milk Of Magnesia) 30 ml PO Q24H PRN PRN Reason: IF NO BM IN THREE DAYS Stop: 09/24/17 10:21 Memantine (Namenda) 5 mg PO BID [facility] Stop: 10/06/17 08:59 Last Admin: 08/08/17 16:16 Dose: 5 mg Multivitamins/Vitamin C (Theragran) 1 tab PO DAILY [facility] Stop: 09/24/17 08:59 Last Admin: 08/08/17 08:30 Dose: 1 tab Olanzapine (Zyprexa) 10 mg PO HS [facility] PRN Reason: Protocol Stop: 10/05/17 06:25 Last Admin: 08/07/17 20:19 Dose: 10 mg Pyridoxine HCl (Vitamin B6) 25 mg PO DAILY [facility] Stop: 09/24/17 08:59 Last Admin: 08/08/17 08:30 Dose: 25 mg Assessment/Plan - Problem List Patient Problems: All Active Problems AGGRESSIVE BEHAVIOR AND VERBAL ABUSE (Acute) Nutritional Asmnt/Malnutr-PDOC - Dietary Evaluation Malnutrition Findings (Please click <Entered> for more info): Nutritional Asmnt/Malnutrition Start: 08/01/17 13: 49 Text: Status: Complete Freq: Document 08/01/17 13:49 NICK (Rec: 08/01/17 14:01 NICK [email or web address]) Nutritional Asmnt/Malnutrition Patient General Information Nutritional Screening Low Risk Diagnosis psychosis NOS Pertinent Medical Hx/Surgical Hx ESRD, sezirues, arthritis dementia, polyneuropathy, anemia, cataract surgery, schizoaffective disorder Subjective Information Per EMR PO intake 75% over the past 2 days. Per nurse note, pt is still confused. Current Diet Order/ Nutrition Support regular Pertinent Medications vit C, theragran, vitamin B6 Pertinent Labs 07/25 cl 109 Nutritional Hx/Data Height 1.52 m Height (Calculated Centimeters) 152.4 Current Weight (lbs) 67.585 kg Weight (Calculated Kilograms) 67.6 Weight (Calculated Grams) 10846.3 [place] Body Weight 100 % [place] Body Weight 149 Body Mass Index (BMI) 29.0 Weight Status Overweight GI Symptoms GI Symptoms None Last BM no BM on 07/27-07/29 Difficult in: None Skin Integrity/Comment: intact Current %PO Good (75-100%) Estimated Nutritional Goals BEE in Kcals: Adj wt of IBW Calories/Kcals/Kg 25-30 Kcals Calculated 3861-4220 Protein: Adj wt of IBW Protein g/k Protein Calculated 51 Fluid: ml 1275-1530ml (1ml/kcal) Nutritional Problem No current Nutrition Prob Problem N/A Intervention/Recommendation Comments 1. Continue with regular diet as ordered. 2. Monitor PO intake, wt, labs and skin integrity 3. F/U as low risk in 7 days, 08/08 Expected Outcomes/Goals Expected Outcomes/Goals 1. PO intake to meet at least 75% of nutritional needs. 2. Wt stability, skin to remain intact, labs to approach WNL.
[2017-08-09] MEDS: Albuterol/Ipratropium Neb 3 ML AERS HHN SCH ×2 (07:02→19:37)
[2017-08-09] MEDS: Multivitamin Tab PO SCH (08:16)
--- NOTE | 2017-08-09 13:38 | Progress Notes ---
DATE: 08/09/2017 SUBJECTIVE: The patient was seen in her room. The patient appears to be confused and agitated. Otherwise, in no acute distress. OBJECTIVE: VITAL SIGNS: Temperature 97.5, heart rate 78, blood pressure 158/61, respiration of 20, 96% on room air. HEENT: Head is atraumatic and normocephalic. Eyes: Bilateral conjunctivae are clear. Bilateral pupils equal, round and reactive. NECK: Supple. No JVD. CARDIOVASCULAR: S1 and S2, without murmur. PULMONARY: Clear to auscultation. GASTROINTESTINAL: Soft and nontender without guarding. Positive bowel sounds. MUSCULOSKELETAL: No clubbing. No cyanosis noted. ASSESSMENT: 1. Psychosis. 2. Seizure disorder. 3. Hypertension. 4. Gastroesophageal reflux disease. PLAN: We will keep the patient inpatient Psychiatric Unit. We will follow up with psychiatrist to monitor the patient's condition and behavior. Treatment plans were discussed with the patient's nurse. Treatment plans were discussed with Dr. Redmond. JOB# [id number]
--- NOTE | 2017-08-09 16:00 | Progress Notes ---
DATE: SUBJECTIVE: Chart reviewed and the patient interviewed. Also discussed the patient's condition with the staff and reviewed records and labs. The patient continued to be forgetful and she is still verbally abusive. The patient also is still restless and still needs redirections. The patient also still made abuse comments towards staff. Otherwise, the patient's affect is slightly brighter and start easier to redirect her. ASSESSMENT: The patient is still psychotic. TREATMENT PLAN: Continue to monitor her behavior and her condition closely. Also, continue to monitor psychotropic medications and work on her discharge plans. JOB# [id number]
--- NOTE | 2017-08-10 00:03 | Progress Notes ---
DATE: 08/09/[address] Grissom. Case discussed with staff of the patient and reviewed records. This is a well-known case to me as seen her before covering for Dr. Grissom. The patient continues to be confused, unpredictable, impulsive, needing redirection. Continues to have poor insight, unable to make safe plan for self-care. Continues to have some verbal abuse to the staff and the patient aggressive at times. She is compliant with the medication with no side effects, no sedation, no nausea, no extrapyramidal symptoms. She is on Zyprexa and was increased to 10 mg at bedtime and Aricept 10 mg at bedtime. We will continue outpatient group therapy, milieu therapy, and adjust the medications as needed. [facility]# [id number]
[2017-08-10] MEDS: Albuterol/Ipratropium Neb 3 ML AERS HHN SCH ×2 (06:39→18:53)
[2017-08-10] MEDS: Multivitamin Tab PO SCH (09:50)
--- NOTE | 2017-08-10 22:32 | Progress Notes ---
DATE: 08/10/[address] Grissom. Case was discussed with the staff of the patient, reviewed records. The patient continues to be demented, confused. Continues to be unable to make safe plan for self-care. Continues to be unpredictable, impulsive, and needing redirection. Continues to have ____ she is s verbally abusive, continues to have poor insight. The family is working on finding her a place in the SNF facility. She is compliant with the medication with no side effects, no sedation, no nausea, and no extrapyramidal symptoms. We will continue to work with the patient in group therapy, milieu therapy, and adjust medication as needed. JOB# [id number]
[2017-08-11] MEDS: Albuterol/Ipratropium Neb 3 ML AERS HHN SCH (06:43)
[2017-08-11] MEDS: Multivitamin Tab PO SCH (08:51)
--- NOTE | 2017-08-12 05:56 | Progress Notes ---
DATE: 08/11/[address] Grissom. The patient apparently have a place to go. Her daughter wanted to go to a SNF facility that they have found. The patient is doing well. No acting out behavior, sleeping well, eating well. No suicidal ideation. No homicidal ideation. No paranoia. No side effects. The patient will follow up with the psychiatrist and primary care physician. Expected outcome is stable. [facility]# [id number]
== END 2017-08-11 14:30 | DRG 885 ==
LOC: ER 19:13 → GERO2 23:12 → GERO 07-26 11:05
PROVIDERS: ADMIT Psychiatry & Neurology Psychiatry; ATTEND Psychiatry & Neurology Psychiatry
DX: F23 Brief psychotic disorder (principal); N18.6 End stage renal disease; I12.0 Hypertensive chronic kidney disease with stage 5 chronic kidney disease or end stage renal disease; F03.91 Unspecified dementia, unspecified severity, with behavioral disturbance; G40.909 Epilepsy, unspecified, not intractable, without status epilepticus; D64.9 Anemia, unspecified; M19.90 Unspecified osteoarthritis, unspecified site; K21.9 Gastro-esophageal reflux disease without esophagitis; Z66 Do not resuscitate; G62.9 Polyneuropathy, unspecified; F41.9 Anxiety disorder, unspecified; Z88.0 Allergy status to penicillin
CPT/HCPCS: 36415-UA; 71045-TC; 80053-TC; 81001-TC; 82948-90; 84443-TC; 85025-TC; 93005; 94640; 94760; J7051; Z7610

== ENCOUNTER 2018-01-26 18:46 | Inpatient (IN) | payer MEDICARE, MEDICAID ==
--- NOTE | 2018-01-26 20:08 | ED Physician Chart ---
ED Chief Complaint/HPI - Patient Information Date Seen:: 01/26/18 Time Seen:: 20:02 Chief Complaint:: generalized weakness History of Present Illness:: 77 yr old female from retirement for decreased appetite and failure to thrive pt asked for sandwich when she came no acute distree confused and not very alert Allergies:: Allergies Allergy/AdvReac Type Severity Reaction Status Date / Time Penicillins Allergy Verified 07/25/17 19:14 Vitals:: Vital Signs - 8 hr 01/26/18 19:03 Temp 97.6 F HR 77 RR 20 BP 155/76 O2 Sat % 100 ED Review of Systems - Review of Systems Head: No headache Eyes: No loss of vision ENT: No earache Neck: No neck pain Cardio Vascular: No chest pain Pulmonary: No SOB GI: No nausea, No vomiting G/U: No dysuria Endocrine: No polyuria Psychiatric: No suicidal ideation Hematopoietic: No bruising Neurological: No syncope ED Past Medical History - Past Medical History Past Medical History: HTN, DM Family Medical History - Family Member Mother History Unknown: Yes Ethnicity: Unknown Living Status: Unknown ED Physical Exam - Physical Examination General/Constitutional: Well-developed, well-nourished Head: Atraumatic Eyes: Lids, conjuctiva normal Other Skin comments:: scars abdomen Neck: Nontender Respiratory: Nl effort/Exclusion Cardio Vascular: RRR Other GI comments:: muliple scars no perioteneal signs Extremities: No tenderness or effusion ED Septic Shock - . Is Septic Shock (SBP<90, OR Lactate>4 mmol\L) present?: No - <6hrs of presentation: Vital Signs: Vital Signs - 8 hr 01/26/18 19:03 Temp 97.6 F HR 77 RR 20 BP 155/76 O2 Sat % 100 ED Reassessment (Disposition) - Reassessment Reassessment Condition:: Improved - Diagnosis Diagnosis:: generalized weakness - Patient Disposition Discharge/Transfer:: Acute Care w/in this hosp Condition at Disposition:: Stable
[2018-01-26 20:36] LABS: BASOPHILE ABSOLUTE 0.1 Th/cumm (0-0.2); HEMATOCRIT 40.3 % (41.0-60); HEMOGLOBIN 13.5 gm/dL (12-16); MEAN CORPUSCULAR HGB CONC 33.4 pg (28.0-36.0); MONOCYTE ABSOLUTE 0.6 Th/cmm (0.3-1.0)
[2018-01-26 20:40] LABS: % BASOPHILS 0.8 % (0.0-2.0); % EOSINOPHILS 2.8 % (0.0-5.0); % LYMPHOCYTES 22.5 % (20.0-50.0); % MONOCYTES 6.2 % (2.0-10.0); % NEUTROPHILS 67.7 % (40.0-80.0); EOSINOPHILE ABSOLUTE 0.3 Th/cmm (0.1-0.4); LYMPHOCYTE ABSOLUTE 2.1 Th/cmm (1.5-3.0); MEAN CELL VOLUME 87.7 fl (81-100); MEAN CORPUSCULAR HEMOGLOBIN 29.3 pg (27.0-31.0); MEAN PLATELET VOLUME 9.4 fl; NEUTROPHILE ABSOLUTE 6.4 Th/cmm (1.8-8.0); PLATELET COUNT 188 Th/cmm (150-400); RED BLOOD COUNT 4.59 Mil/cmm (3.80-5.20); RED CELL DISTRIBUTION WIDTH 13.3 % (11.5-20.0); WHITE BLOOD COUNT 9.5 Th/cmm (4.8-10.8)
[2018-01-26 20:57] LABS: ALB/GLOB RATIO 1.1 (1.0-1.8); ALBUMIN 3.8 gm/dL (3.7-5.3); ALKALINE PHOSPHATASE 67 U/L (34-104); BILIRUBIN,TOTAL 0.2 mg/dL (0.3-1.0); BUN - UREA NITROGEN 19 mg/dL (7-25); CALCIUM SERUM 8.8 mg/dL (8.6-10.3); CARBON DIOXIDE 23.5 mEq/L (21.0-31.0); CHLORIDE 104 mEq/L (98-107); CREATININE - SERUM 0.9 mg/dL (0.6-1.2); GLUCOSE 120 mg/dL (70-105); POTASSIUM SERUM 3.5 mEq/L (3.5-5.1); SGOT 20 U/L (13-39); SGPT/ALT 14 U/L (7-52); SODIUM SERUM 134 mEq/L (136-145); TOTAL PROTEIN,SERUM 7.3 gm/dL (6.0-8.3)
[2018-01-26 23:45] VITALS: BP 140/77
[2018-01-26] MEDS ORDERED: Magnesium Hydroxide (MOM) 30 mL UDC PO PRN (23:47)
[2018-01-26] MEDS ORDERED: Maalox 30 mL Cup PO PRN (23:47)
[2018-01-27 00:33] LABS: CHOLESTEROL 185 mg/dL (<200); HDL -HIGH DENSITY LIPOPROTEIN 65 mg/dL (23-92); TRIGLYCERIDES 89 mg/dL (<150)
--- NOTE | 2018-01-27 08:34 | Diagnostic Imaging Report ---
Portable chest x-ray HISTORY: Shortness of breath. The heart is enlarged. No focal pulmonary processes. No hilar or mediastinal abnormalities. IMPRESSION: 1. No acute abnormalities
[2018-01-27] MEDS: Multivitamin Tab PO SCH (10:38)
--- NOTE | 2018-01-27 18:28 | History & Physical ---
ADMIT DATE: 01/27/2018 CHIEF COMPLAINT: Agitation. HISTORY OF PRESENT ILLNESS: This is a 77-year-old female who is admitted to the Geropsych Unit due to increase of confusion at the prison, refusing to eat. PAST MEDICAL HISTORY: Hypertension, diabetes. SOCIAL HISTORY: The patient is a prison resident requiring 24-hour nursing care. SURGICAL HISTORY: Unknown. ALLERGIES: PENICILLIN. REVIEW OF SYSTEMS: GENERAL: Denies fever and chills. CARDIOVASCULAR: No chest pain. RESPIRATORY: No shortness of breath. GASTROINTESTINAL: Denies nausea, vomiting, abdominal pain. GENITOURINARY: Denies increased frequency or dysuria. NEUROLOGIC: No headaches, seizures, or syncope. All other systems are reviewed and are negative. PHYSICAL EXAMINATION: GENERAL: Elderly female, awake, alert with some confusion. No apparent distress. VITAL SIGNS: Temperature 98.3, heart rate 71, blood pressure 156/92, respirations 19, O2 99%. HEENT: Head normocephalic, atraumatic. NECK: Supple. No mass. LUNGS: Clear bilaterally. HEART: Regular rate and rhythm ABDOMEN: Soft, nontender. LABORATORY DATA: WBC 9.5, H and H 13.5 and 40.4, platelet of 188. Sodium 134, potassium 3.5, chloride 104, BUN 19, creatinine 0.9. ASSESSMENT: Agitation, generalized weakness, hypertension, diabetes. PLAN: We will admit the patient. Fall precautions will be initiated. Continue medications from the prison. We will continue to follow this patient. JOB# [id number]
--- NOTE | 2018-01-27 20:11 | Psychiatric Evaluation ---
DATE OF SERVICE: PSYCHIATRIC INITIAL EVALUATION PATIENT'S AGE: 77 SEX: Female. PHYSICIAN: Carmelo Grissom M.D., M.P.H. CHIEF COMPLAINT: Agitation and irritability. HISTORY OF PRESENT ILLNESS: The patient is a 77-year-old female who has been under my care. The patient was transferred from [facility] because of increased agitation and irritability. The patient has been increasingly irritable and agitated with resisting care and this was of yelling and screaming at the facility. The patient also has not been able to follow staff directions and the patient was transferred to the hospital to monitor her medications and her condition. Chart reviewed and the patient interviewed and discussed the patient's condition with the staff. The patient is still having episodes of irritability and agitation as well as confusion. She is wandering around the unit in a confused state, pushing wheelchair. PAST PSYCHIATRIC HISTORY: The patient has a history of psychosis. The patient has been taking Zyprexa. PAST MEDICAL HISTORY: The patient has no major medical problems. The patient also has generalized weakness according to the admission report from the Emergency Room. The patient also had decreased appetite lately. SOCIAL HISTORY: The patient lives in [facility]. MEDICATIONS: The patient has been taking Zyprexa in a dose of 7.5 mg at bedtime. She also has been taking gabapentin 300 mg twice a day. ALLERGIES: No known allergies. MENTAL STATUS EXAMINATION: The patient appears her stated age. Anxious. Confused. Irritable and easily agitated. The patient did not answer questions regarding hallucinations or delusions, but she seems to be preoccupied. The patient denies thoughts of suicide or homicide. The patient is alert, but seems to be confused and disoriented to time, place, person and situation. Impaired immediate and recent memory, but intact remote memories. Poor insight and poor judgment. ASSESSMENT: PRIMARY DIAGNOSES: Schizoaffective disorder by history. Rule out unspecified psychosis. TREATMENT PLAN: We will monitor the patient's behavior and condition closely. We will start individual as well as milieu psychotherapy. We will monitor psychotropic medications. ESTIMATED LENGTH OF STAY: 5-7 days. THE PATIENT'S STRENGTHS AND WEAKNESSES: The patient's strength seems to be in relatively fair health. Weakness is her ineffective coping. AFTER DISCHARGE PLAN: Outpatient treatment and followup will continue as an outpatient. CRITERIA FOR DISCHARGE: The patient will not be suicidal and will stabilize psychotropic medications and will establish outpatient treatment. [facility]# [id number]
[2018-01-28] MEDS: Multivitamin Tab PO SCH (08:39)
--- NOTE | 2018-01-28 11:45 | Internal Medicine Prog Note ---
Internal Medicine Subjective - Subjective Patient seen and examined:: other (admitted with increase confusion ) Patient is:: awake Patient Complaints of:: other (confused) Per staff patient has:: no adverse event Internal Medicine Objective - Results Result Diagrams: 01/26/18 20:30 01/26/18 20:30 Recent Labs: Laboratory Last Values WBC 9.5 Th/cmm (4.8-10.8) 01/26/18 20:30 RBC 4.59 Mil/cmm (3.80-5.20) 01/26/18 20:30 Hgb 13.5 gm/dL (12-16) 01/26/18 20:30 Hct 40.3 % (41.0-60) L 01/26/18 20:30 MCV 87.7 fl (81-100) 01/26/18 20:30 MCH 29.3 pg (27.0-31.0) 01/26/18 20:30 MCHC Differential 33.4 pg (28.0-36.0) 01/26/18 20:30 RDW 13.3 % (11.5-20.0) 01/26/18 20:30 Plt Count 188 Th/cmm (150-400) 01/26/18 20:30 MPV 9.4 fl 01/26/18 20:30 Neutrophils % 67.7 % (40.0-80.0) 01/26/18 20:30 Lymphocytes % 22.5 % (20.0-50.0) 01/26/18 20:30 Monocytes % 6.2 % (2.0-10.0) 01/26/18 20:30 Eosinophils % 2.8 % (0.0-5.0) 01/26/18 20:30 Basophils % 0.8 % (0.0-2.0) 01/26/18 20:30 Sodium 134 mEq/L (136-145) L 01/26/18 20:30 Potassium 3.5 mEq/L (3.5-5.1) 01/26/18 20:30 Chloride 104 mEq/L (98-107) 01/26/18 20:30 Carbon Dioxide 23.5 mEq/L (21.0-31.0) 01/26/18 20:30 Anion Gap 10.0 (7.0-16.0) 01/26/18 20:30 BUN 19 mg/dL (7-25) 01/26/18 20:30 Creatinine 0.9 mg/dL (0.6-1.2) 01/26/18 20:30 Est GFR ( Amer) TNP 01/26/18 20:30 Est GFR (Non-Af Amer) TNP 01/26/18 20:30 BUN/Creatinine Ratio 21.1 01/26/18 20:30 Glucose 120 mg/dL (70-105) H 01/26/18 20:30 Whole Bld Lactic Acid 0.64 mmol/L (0.60-1.99) 01/26/18 20:30 Calcium 8.8 mg/dL (8.6-10.3) 01/26/18 20:30 Total Bilirubin 0.2 mg/dL (0.3-1.0) L 01/26/18 20:30 AST 20 U/L (13-39) 01/26/18 20:30 ALT 14 U/L (7-52) 01/26/18 20:30 Alkaline Phosphatase 67 U/L (34-104) 01/26/18 20:30 Troponin I 0.01 ng/mL (0.01-0.05) 01/26/18 20:30 Total Protein 7.3 gm/dL (6.0-8.3) 01/26/18 20:30 Albumin 3.8 gm/dL (3.7-5.3) 01/26/18 20:30 Globulin 3.5 gm/dL 01/26/18 20:30 Albumin/Globulin Ratio 1.1 (1.0-1.8) 01/26/18 20:30 Triglycerides 89 mg/dL (<150) 01/26/18 20:30 Cholesterol 185 mg/dL (<200) 01/26/18 20:30 LDL Cholesterol Direct 96 mg/dL (75-193) 01/26/18 20:30 HDL Cholesterol 65 mg/dL (23-92) 01/26/18 20:30 - Physical Exam Vitals and I&O: Vital Signs Temp 97.9 F 01/28/18 06:31 Pulse 96 01/28/18 06:31 Resp 19 01/28/18 06:31 BP 145/67 01/28/18 06:31 Pulse Ox 97 01/28/18 06:31 Intake & Output 01/27/18 01/28/18 01/28/18 18:59 06:59 18:59 Intake Total 240 Balance 240 Weight (lbs) 70.307 kg Intake: Oral 240 Other: # Voids 2 # Bowel Movements 0 Weight Source Bedscale Active Medications: Current Medications Acetaminophen (Tylenol) 650 mg PO Q4HR PRN PRN Reason: Mild Pain / Temp above 100 Stop: 03/27/18 23:46 Al Hydrox/Mg Hydrox/Simethicone (Maalox) 30 ml PO Q4HR PRN PRN Reason: GI DISTRESS Stop: 03/27/18 23:46 Ascorbic Acid (Vitamin C) 500 mg PO DAILY [facility] Stop: 03/28/18 08:59 Last Admin: 01/28/18 08:39 Dose: 500 mg Donepezil HCl (Aricept) 10 mg PO HS [facility] Stop: 03/28/18 20:59 Last Admin: 01/27/18 20:33 Dose: 10 mg Famotidine (Pepcid) 20 mg PO DAILY [facility] Stop: 03/28/18 08:59 Last Admin: 01/28/18 08:39 Dose: 20 mg Gabapentin (Neurontin) 300 mg PO BID [facility] Stop: 03/28/18 08:59 Last Admin: 01/28/18 08:39 Dose: 300 mg Lorazepam (Ativan) 0.5 mg PO Q4HR PRN; Protocol PRN Reason: Anxiety/Agitation Stop: 02/25/18 23:46 Last Admin: 01/27/18 20:33 Dose: 0.5 mg Magnesium Hydroxide (Milk Of Magnesia) 30 ml PO HS PRN PRN Reason: Constipation Memantine (Namenda) 5 mg PO DAILY [facility] Stop: 03/28/18 08:59 Last Admin: 01/28/18 08:39 Dose: 5 mg Multivitamins/Vitamin C (Theragran) 1 tab PO DAILY [facility] Stop: 03/28/18 08:59 Last Admin: 01/28/18 08:39 Dose: 1 tab Olanzapine (Zyprexa) 10 mg PO HS [facility]; Protocol Stop: 03/28/18 20:59 Last Admin: 01/27/18 20:33 Dose: 10 mg Pyridoxine HCl (Vitamin B6) 25 mg PO DAILY [facility] Stop: 03/28/18 08:59 Last Admin: 01/28/18 08:39 Dose: 25 mg Zolpidem Tartrate (Ambien) 5 mg PO HS PRN PRN Reason: Insomnia Stop: 03/27/18 23:46 Last Admin: 01/27/18 20:33 Dose: 5 mg General: weak, demented HEENT: NC/AT Neck: Supple Lungs: CTAB Cardiovascular: Normal S1, Normal S2 Abdomen: soft, non-tender Extremities: clear Internal Medicine Assmt/Plan - Assessment Assessment: agitation general weakness htn DM - Plan Plan: as per order sheet fall precaution
[2018-01-29] MEDS: Multivitamin Tab PO SCH (09:15)
--- NOTE | 2018-01-29 11:42 | Internal Medicine Prog Note ---
Internal Medicine Subjective - Subjective Patient seen and examined:: chart reviewed Patient is:: awake, other (confused ) Patient Complaints of:: other (confused) Per staff patient has:: no adverse event Internal Medicine Objective - Results Result Diagrams: 01/26/18 20:30 01/26/18 20:30 Recent Labs: Laboratory Last Values WBC 9.5 Th/cmm (4.8-10.8) 01/26/18 20:30 RBC 4.59 Mil/cmm (3.80-5.20) 01/26/18 20:30 Hgb 13.5 gm/dL (12-16) 01/26/18 20:30 Hct 40.3 % (41.0-60) L 01/26/18 20:30 MCV 87.7 fl (81-100) 01/26/18 20:30 MCH 29.3 pg (27.0-31.0) 01/26/18 20:30 MCHC Differential 33.4 pg (28.0-36.0) 01/26/18 20:30 RDW 13.3 % (11.5-20.0) 01/26/18 20:30 Plt Count 188 Th/cmm (150-400) 01/26/18 20:30 MPV 9.4 fl 01/26/18 20:30 Neutrophils % 67.7 % (40.0-80.0) 01/26/18 20:30 Lymphocytes % 22.5 % (20.0-50.0) 01/26/18 20:30 Monocytes % 6.2 % (2.0-10.0) 01/26/18 20:30 Eosinophils % 2.8 % (0.0-5.0) 01/26/18 20:30 Basophils % 0.8 % (0.0-2.0) 01/26/18 20:30 Sodium 134 mEq/L (136-145) L 01/26/18 20:30 Potassium 3.5 mEq/L (3.5-5.1) 01/26/18 20:30 Chloride 104 mEq/L (98-107) 01/26/18 20:30 Carbon Dioxide 23.5 mEq/L (21.0-31.0) 01/26/18 20:30 Anion Gap 10.0 (7.0-16.0) 01/26/18 20:30 BUN 19 mg/dL (7-25) 01/26/18 20:30 Creatinine 0.9 mg/dL (0.6-1.2) 01/26/18 20:30 Est GFR ( Amer) TNP 01/26/18 20:30 Est GFR (Non-Af Amer) TNP 01/26/18 20:30 BUN/Creatinine Ratio 21.1 01/26/18 20:30 Glucose 120 mg/dL (70-105) H 01/26/18 20:30 Whole Bld Lactic Acid 0.64 mmol/L (0.60-1.99) 01/26/18 20:30 Calcium 8.8 mg/dL (8.6-10.3) 01/26/18 20:30 Total Bilirubin 0.2 mg/dL (0.3-1.0) L 01/26/18 20:30 AST 20 U/L (13-39) 01/26/18 20:30 ALT 14 U/L (7-52) 01/26/18 20:30 Alkaline Phosphatase 67 U/L (34-104) 01/26/18 20:30 Troponin I 0.01 ng/mL (0.01-0.05) 01/26/18 20:30 Total Protein 7.3 gm/dL (6.0-8.3) 01/26/18 20:30 Albumin 3.8 gm/dL (3.7-5.3) 01/26/18 20:30 Globulin 3.5 gm/dL 01/26/18 20:30 Albumin/Globulin Ratio 1.1 (1.0-1.8) 01/26/18 20:30 Triglycerides 89 mg/dL (<150) 01/26/18 20:30 Cholesterol 185 mg/dL (<200) 01/26/18 20:30 LDL Cholesterol Direct 96 mg/dL (75-193) 01/26/18 20:30 HDL Cholesterol 65 mg/dL (23-92) 01/26/18 20:30 - Physical Exam Vitals and I&O: Vital Signs Temp 97.6 F 01/29/18 06:44 Pulse 69 01/29/18 06:44 Resp 19 01/29/18 06:44 BP 145/78 01/29/18 06:44 Pulse Ox 98 01/29/18 06:44 Intake & Output 01/28/18 01/29/18 01/29/18 18:59 06:59 18:59 Intake Total 700 120 Balance 700 120 Intake: Oral 700 120 Other: # Voids 3 3 # Bowel Movements 0 Active Medications: Current Medications Acetaminophen (Tylenol) 650 mg PO Q4HR PRN PRN Reason: Mild Pain / Temp above 100 Stop: 03/27/18 23:46 Al Hydrox/Mg Hydrox/Simethicone (Maalox) 30 ml PO Q4HR PRN PRN Reason: GI DISTRESS Stop: 03/27/18 23:46 Ascorbic Acid (Vitamin C) 500 mg PO DAILY [facility] Stop: 03/28/18 08:59 Last Admin: 01/29/18 09:15 Dose: Not Given Donepezil HCl (Aricept) 10 mg PO HS [facility] Stop: 03/28/18 20:59 Last Admin: 01/28/18 20:43 Dose: 10 mg Famotidine (Pepcid) 20 mg PO DAILY [facility] Stop: 03/28/18 08:59 Last Admin: 01/29/18 09:15 Dose: Not Given Gabapentin (Neurontin) 300 mg PO BID [facility] Stop: 03/28/18 08:59 Last Admin: 01/29/18 09:15 Dose: Not Given Lorazepam (Ativan) 0.5 mg PO Q4HR PRN; Protocol PRN Reason: Anxiety/Agitation Stop: 02/25/18 23:46 Last Admin: 01/29/18 10:28 Dose: 0.5 mg Magnesium Hydroxide (Milk Of Magnesia) 30 ml PO HS PRN PRN Reason: Constipation Memantine (Namenda) 5 mg PO BID [facility] Stop: 03/30/18 08:59 Last Admin: 01/29/18 09:15 Dose: Not Given Multivitamins/Vitamin C (Theragran) 1 tab PO DAILY [facility] Stop: 03/28/18 08:59 Last Admin: 01/29/18 09:15 Dose: Not Given Olanzapine (Zyprexa) 10 mg PO HS [facility]; Protocol Stop: 03/28/18 20:59 Last Admin: 01/28/18 20:43 Dose: 10 mg Pyridoxine HCl (Vitamin B6) 25 mg PO DAILY [facility] Stop: 03/28/18 08:59 Last Admin: 01/29/18 09:15 Dose: Not Given Zolpidem Tartrate (Ambien) 5 mg PO HS PRN PRN Reason: Insomnia Stop: 03/27/18 23:46 Last Admin: 01/28/18 20:42 Dose: 5 mg General: weak, demented HEENT: NC/AT Neck: Supple Lungs: CTAB Cardiovascular: Normal S1, Normal S2 Abdomen: soft, non-tender Extremities: clear Internal Medicine Assmt/Plan - Assessment Assessment: agitation general weakness htn DM - Plan Plan: as per order sheet fall precaution cpm
--- NOTE | 2018-01-29 18:31 | Progress Notes ---
DATE: SUBJECTIVE: Chart reviewed and the patient interviewed. Also discussed the patient's condition with the staff and reviewed records and labs. The patient is still confused. The patient also is still pacing up and down pushing wheelchair in a confused state and entering other patient's rooms. She also obsessed with one male patient in the hospital that she has been trying to get into his room with the wheelchair and he gets upset and exposing herself to dangerous situations there. The patient also is still careless about her safety. Otherwise, the patient continued to comply with taking her medications and Zyprexa increased to 10 mg every day and continued to take Namenda and Aricept. ASSESSMENT: The patient is still psychotic and still can be dangerous to self. TREATMENT PLAN: Continue to monitor her behavior and continue working on behavioral modification and adjusting psychotropic medications. JOB# [id number]
--- NOTE | 2018-01-29 23:59 | Progress Notes ---
DATE: SUBJECTIVE: Chart reviewed and the patient interviewed. Also discussed the patient's condition with the staff and reviewed records and labs. The patient remains confused and anxious. The patient also is still pacing the unit with her wheelchair. The patient also is suspicious and is paranoid. Otherwise, the patient is compliant with taking medications with no side effect of medications. ASSESSMENT: The patient is still psychotic and is still confused. TREATMENT PLAN: Continue to monitor behavior closely. Also, we will increase Namenda to 5 mg twice a day and continue to follow up closely. JOB# [id number]
[2018-01-30] MEDS: Multivitamin Tab PO SCH (10:00)
--- NOTE | 2018-01-30 12:53 | Internal Medicine Prog Note ---
Internal Medicine Subjective - Subjective Service Date: 01/30/18 Patient is:: awake, verbal, other Patient Complaints of:: other Per staff patient has:: no adverse event Internal Medicine Objective - Results Result Diagrams: 01/26/18 20:30 01/26/18 20:30 Recent Labs: Laboratory Last Values WBC 9.5 Th/cmm (4.8-10.8) 01/26/18 20:30 RBC 4.59 Mil/cmm (3.80-5.20) 01/26/18 20:30 Hgb 13.5 gm/dL (12-16) 01/26/18 20:30 Hct 40.3 % (41.0-60) L 01/26/18 20:30 MCV 87.7 fl (81-100) 01/26/18 20:30 MCH 29.3 pg (27.0-31.0) 01/26/18 20:30 MCHC Differential 33.4 pg (28.0-36.0) 01/26/18 20:30 RDW 13.3 % (11.5-20.0) 01/26/18 20:30 Plt Count 188 Th/cmm (150-400) 01/26/18 20:30 MPV 9.4 fl 01/26/18 20:30 Neutrophils % 67.7 % (40.0-80.0) 01/26/18 20:30 Lymphocytes % 22.5 % (20.0-50.0) 01/26/18 20:30 Monocytes % 6.2 % (2.0-10.0) 01/26/18 20:30 Eosinophils % 2.8 % (0.0-5.0) 01/26/18 20:30 Basophils % 0.8 % (0.0-2.0) 01/26/18 20:30 Sodium 134 mEq/L (136-145) L 01/26/18 20:30 Potassium 3.5 mEq/L (3.5-5.1) 01/26/18 20:30 Chloride 104 mEq/L (98-107) 01/26/18 20:30 Carbon Dioxide 23.5 mEq/L (21.0-31.0) 01/26/18 20:30 Anion Gap 10.0 (7.0-16.0) 01/26/18 20:30 BUN 19 mg/dL (7-25) 01/26/18 20:30 Creatinine 0.9 mg/dL (0.6-1.2) 01/26/18 20:30 Est GFR ( Amer) TNP 01/26/18 20:30 Est GFR (Non-Af Amer) TNP 01/26/18 20:30 BUN/Creatinine Ratio 21.1 01/26/18 20:30 Glucose 120 mg/dL (70-105) H 01/26/18 20:30 Whole Bld Lactic Acid 0.64 mmol/L (0.60-1.99) 01/26/18 20:30 Calcium 8.8 mg/dL (8.6-10.3) 01/26/18 20:30 Total Bilirubin 0.2 mg/dL (0.3-1.0) L 01/26/18 20:30 AST 20 U/L (13-39) 01/26/18 20:30 ALT 14 U/L (7-52) 01/26/18 20:30 Alkaline Phosphatase 67 U/L (34-104) 01/26/18 20:30 Troponin I 0.01 ng/mL (0.01-0.05) 01/26/18 20:30 Total Protein 7.3 gm/dL (6.0-8.3) 01/26/18 20:30 Albumin 3.8 gm/dL (3.7-5.3) 01/26/18 20:30 Globulin 3.5 gm/dL 01/26/18 20:30 Albumin/Globulin Ratio 1.1 (1.0-1.8) 01/26/18 20:30 Triglycerides 89 mg/dL (<150) 01/26/18 20:30 Cholesterol 185 mg/dL (<200) 01/26/18 20:30 LDL Cholesterol Direct 96 mg/dL (75-193) 01/26/18 20:30 HDL Cholesterol 65 mg/dL (23-92) 01/26/18 20:30 - Physical Exam Vitals and I&O: Vital Signs Temp 98.1 F 01/30/18 07:01 Pulse 62 01/30/18 07:01 Resp 20 01/30/18 07:01 BP 142/87 01/30/18 07:01 Pulse Ox 98 01/30/18 07:01 Intake & Output 01/29/18 01/30/18 01/30/18 18:59 06:59 18:59 Intake Total 960 240 240 Balance 960 240 240 Intake: Oral 960 240 240 Other: # Voids 3 1 1 # Bowel Movements 1 Active Medications: Current Medications Acetaminophen (Tylenol) 650 mg PO Q4HR PRN PRN Reason: Mild Pain / Temp above 100 Stop: 03/27/18 23:46 Al Hydrox/Mg Hydrox/Simethicone (Maalox) 30 ml PO Q4HR PRN PRN Reason: GI DISTRESS Stop: 03/27/18 23:46 Ascorbic Acid (Vitamin C) 500 mg PO DAILY [facility] Stop: 03/28/18 08:59 Last Admin: 01/30/18 10:00 Dose: Not Given Donepezil HCl (Aricept) 10 mg PO HS [facility] Stop: 03/28/18 20:59 Last Admin: 01/29/18 21:06 Dose: 10 mg Famotidine (Pepcid) 20 mg PO DAILY [facility] Stop: 03/28/18 08:59 Last Admin: 01/30/18 10:00 Dose: Not Given Gabapentin (Neurontin) 300 mg PO BID [facility] Stop: 03/28/18 08:59 Last Admin: 01/30/18 10:00 Dose: Not Given Lorazepam (Ativan) 0.5 mg PO Q4HR PRN; Protocol PRN Reason: Anxiety/Agitation Stop: 02/25/18 23:46 Last Admin: 01/29/18 10:28 Dose: 0.5 mg Magnesium Hydroxide (Milk Of Magnesia) 30 ml PO HS PRN PRN Reason: Constipation Memantine (Namenda) 5 mg PO BID [facility] Stop: 03/30/18 08:59 Last Admin: 01/30/18 10:08 Dose: Not Given Multivitamins/Vitamin C (Theragran) 1 tab PO DAILY [facility] Stop: 03/28/18 08:59 Last Admin: 01/30/18 10:00 Dose: Not Given Olanzapine (Zyprexa) 10 mg PO HS [facility]; Protocol Stop: 03/28/18 20:59 Last Admin: 01/29/18 21:07 Dose: 10 mg Pyridoxine HCl (Vitamin B6) 25 mg PO DAILY [facility] Stop: 03/28/18 08:59 Last Admin: 01/30/18 10:00 Dose: Not Given Zolpidem Tartrate (Ambien) 5 mg PO HS PRN PRN Reason: Insomnia Stop: 03/27/18 23:46 Last Admin: 01/29/18 21:06 Dose: 5 mg General: weak, demented HEENT: NC/AT Neck: Supple Lungs: CTAB Cardiovascular: Normal S1, Normal S2 Abdomen: soft, non-tender Extremities: clear Internal Medicine Assmt/Plan - Assessment Assessment: agitation general weakness htn DM - Plan Plan: continue current plan of care
--- NOTE | 2018-01-30 23:11 | Progress Notes ---
DATE: SUBJECTIVE: Chart reviewed and the patient interviewed. Also discussed the patient's condition with the staff and reviewed records and labs. The patient is still anxious and she is still pacing up and down the unit in a confused state. The patient also is still restless and she still needs redirections. The patient also is uncooperative and is still resisting care. Otherwise, the patient is compliant with taking her medications and the patient denies any side effects of medications. ASSESSMENT: The patient is still confused and agitated. TREATMENT PLAN: Continue to monitor behavior and condition closely. Also, continue adjusting psychotropic medications and follow up. Also, working on discharge plans. JOB# [id number]
--- NOTE | 2018-01-31 09:29 | Progress Notes ---
DATE: 01/31/2018 SUBJECTIVE: The patient is currently transferred from [facility] because of increased agitation, irritability, resisting care, yelling, screaming, not following any directions. The patient with episodes of irritability, agitation, confusion and wandering. On [id number], the patient declined on exam originally brought in due to poor oral intake as well as weakness, concerns for ongoing agitation, irritability, apparent history of schizoaffective disorder, noted to have dementia as well. She remains confused, disoriented, not saying much, just saying her name, responding to her name. ASSESSMENT: The patient remains symptomatic, very poor memory, confused, disoriented, remains forgetful, highly impulsive, unpredictable, concerns that she will lash out. PLAN: Medications were noted. We will continue to monitor. Continue Zyprexa, Namenda and Aricept. Given ongoing symptoms, poor impulse control. There are ongoing safety concerns. [facility]# [id number]
[2018-01-31] MEDS: Multivitamin Tab PO SCH (09:37)
--- NOTE | 2018-01-31 16:10 | Progress Notes ---
DATE: 01/31/2018 SUBJECTIVE: The patient was seen in the dining area. The patient is a poor historian due to medical condition, episodes of agitation and poor impulse control. Otherwise, the patient appears to be in no acute distress. OBJECTIVE: VITAL SIGNS: Temperature 97.9, heart rate 69, blood pressure 129/72, respiration 19, 97% on room air. HEENT: Head is atraumatic and normocephalic. Eyes: Bilateral conjunctivae are blue. Bilateral pupils are equally round and reactive. NECK: Supple. No JVD. CARDIOVASCULAR: S1 and S2, without murmur. PULMONARY: Clear to auscultation. GASROINTESTINAL: Soft and nontender without guarding. Positive bowel sounds. MUSCULOSKELETAL: No clubbing, no cyanosis noted. ASSESSMENT: 1. Schizoaffective disorder. 2. Hypertension. 3. Diabetes. PLAN: We will keep the patient inpatient psychiatric unit. We will followup with the psychiatrist to monitor the patient's condition and behavior. Treatment plans were discussed with the patient. Treatment plans were discussed with Dr. Redmond. JOB# [id number]
--- NOTE | 2018-02-01 07:02 | Progress Notes ---
DATE: 02/01/2018 SUBJECTIVE: The patient transferred from [facility] with increased agitation, irritability, resistive to care, yelling and screaming, not following directions, episodes of irritability, agitation. On [id number], the patient poorly oriented, confused. She did sleep fairly well, episodes of forgetfulness, disorientation, disorganized, not making any sense on exam, poor historian. Staff noting she has been somewhat calmer, but not coherent, very impulsive and unpredictable. ASSESSMENT: The patient is still forgetful, disoriented, unable to have a conversation with the patient. She is not a good historian, too confused, also with wandering episodes into other patients' rooms. PLAN: We will continue to monitor, adjust and titrate medications. Medications were reviewed. Given her ongoing symptoms, she is not safe for discharge. Continue Zyprexa, Aricept. [facility]# [id number]
[2018-02-01] MEDS: Multivitamin Tab PO SCH (09:37)
--- NOTE | 2018-02-01 12:24 | Internal Medicine Prog Note ---
Internal Medicine Subjective - Subjective Patient is:: awake, verbal, other (confused,irritable) Patient Complaints of:: other Per staff patient has:: no adverse event Internal Medicine Objective - Results Result Diagrams: 01/26/18 20:30 01/26/18 20:30 Recent Labs: Laboratory Last Values WBC 9.5 Th/cmm (4.8-10.8) 01/26/18 20:30 RBC 4.59 Mil/cmm (3.80-5.20) 01/26/18 20:30 Hgb 13.5 gm/dL (12-16) 01/26/18 20:30 Hct 40.3 % (41.0-60) L 01/26/18 20:30 MCV 87.7 fl (81-100) 01/26/18 20:30 MCH 29.3 pg (27.0-31.0) 01/26/18 20:30 MCHC Differential 33.4 pg (28.0-36.0) 01/26/18 20:30 RDW 13.3 % (11.5-20.0) 01/26/18 20:30 Plt Count 188 Th/cmm (150-400) 01/26/18 20:30 MPV 9.4 fl 01/26/18 20:30 Neutrophils % 67.7 % (40.0-80.0) 01/26/18 20:30 Lymphocytes % 22.5 % (20.0-50.0) 01/26/18 20:30 Monocytes % 6.2 % (2.0-10.0) 01/26/18 20:30 Eosinophils % 2.8 % (0.0-5.0) 01/26/18 20:30 Basophils % 0.8 % (0.0-2.0) 01/26/18 20:30 Sodium 134 mEq/L (136-145) L 01/26/18 20:30 Potassium 3.5 mEq/L (3.5-5.1) 01/26/18 20:30 Chloride 104 mEq/L (98-107) 01/26/18 20:30 Carbon Dioxide 23.5 mEq/L (21.0-31.0) 01/26/18 20:30 Anion Gap 10.0 (7.0-16.0) 01/26/18 20:30 BUN 19 mg/dL (7-25) 01/26/18 20:30 Creatinine 0.9 mg/dL (0.6-1.2) 01/26/18 20:30 Est GFR ( Amer) TNP 01/26/18 20:30 Est GFR (Non-Af Amer) TNP 01/26/18 20:30 BUN/Creatinine Ratio 21.1 01/26/18 20:30 Glucose 120 mg/dL (70-105) H 01/26/18 20:30 Whole Bld Lactic Acid 0.64 mmol/L (0.60-1.99) 01/26/18 20:30 Calcium 8.8 mg/dL (8.6-10.3) 01/26/18 20:30 Total Bilirubin 0.2 mg/dL (0.3-1.0) L 01/26/18 20:30 AST 20 U/L (13-39) 01/26/18 20:30 ALT 14 U/L (7-52) 01/26/18 20:30 Alkaline Phosphatase 67 U/L (34-104) 01/26/18 20:30 Troponin I 0.01 ng/mL (0.01-0.05) 01/26/18 20:30 Total Protein 7.3 gm/dL (6.0-8.3) 01/26/18 20:30 Albumin 3.8 gm/dL (3.7-5.3) 01/26/18 20:30 Globulin 3.5 gm/dL 01/26/18 20:30 Albumin/Globulin Ratio 1.1 (1.0-1.8) 01/26/18 20:30 Triglycerides 89 mg/dL (<150) 01/26/18 20:30 Cholesterol 185 mg/dL (<200) 01/26/18 20:30 LDL Cholesterol Direct 96 mg/dL (75-193) 01/26/18 20:30 HDL Cholesterol 65 mg/dL (23-92) 01/26/18 20:30 - Physical Exam Vitals and I&O: Vital Signs Temp 97.9 F 01/31/18 21:34 Pulse 79 02/01/18 07:12 Resp 18 02/01/18 07:12 BP 145/76 02/01/18 07:12 Pulse Ox 100 02/01/18 07:12 Intake & Output 01/31/18 02/01/18 02/01/18 18:59 06:59 18:59 Intake Total 660 Balance 660 Intake: Oral 660 Other: # Voids 3 # Bowel Movements 0 Active Medications: Current Medications Acetaminophen (Tylenol) 650 mg PO Q4HR PRN PRN Reason: Mild Pain / Temp above 100 Stop: 03/27/18 23:46 Al Hydrox/Mg Hydrox/Simethicone (Maalox) 30 ml PO Q4HR PRN PRN Reason: GI DISTRESS Stop: 03/27/18 23:46 Ascorbic Acid (Vitamin C) 500 mg PO DAILY [facility] Stop: 03/28/18 08:59 Last Admin: 02/01/18 09:37 Dose: 500 mg Donepezil HCl (Aricept) 10 mg PO HS [facility] Stop: 03/28/18 20:59 Last Admin: 01/31/18 20:42 Dose: 10 mg Famotidine (Pepcid) 20 mg PO DAILY [facility] Stop: 03/28/18 08:59 Last Admin: 02/01/18 09:37 Dose: 20 mg Gabapentin (Neurontin) 300 mg PO BID [facility] Stop: 03/28/18 08:59 Last Admin: 02/01/18 09:37 Dose: 300 mg Lorazepam (Ativan) 0.5 mg PO Q4HR PRN; Protocol PRN Reason: Anxiety/Agitation Stop: 02/25/18 23:46 Last Admin: 02/01/18 03:08 Dose: 0.5 mg Magnesium Hydroxide (Milk Of Magnesia) 30 ml PO HS PRN PRN Reason: Constipation Memantine (Namenda) 5 mg PO BID [facility] Stop: 03/30/18 08:59 Last Admin: 02/01/18 09:37 Dose: 5 mg Multivitamins/Vitamin C (Theragran) 1 tab PO DAILY [facility] Stop: 03/28/18 08:59 Last Admin: 02/01/18 09:37 Dose: Not Given Olanzapine (Zyprexa) 10 mg PO HS [facility]; Protocol Stop: 03/28/18 20:59 Last Admin: 01/31/18 20:42 Dose: 10 mg Pyridoxine HCl (Vitamin B6) 25 mg PO DAILY [facility] Stop: 03/28/18 08:59 Last Admin: 02/01/18 09:37 Dose: 25 mg Zolpidem Tartrate (Ambien) 5 mg PO HS PRN PRN Reason: Insomnia Stop: 03/27/18 23:46 Last Admin: 01/31/18 20:42 Dose: 5 mg General: weak, demented HEENT: NC/AT Neck: Supple Lungs: CTAB Cardiovascular: Normal S1, Normal S2 Abdomen: soft, non-tender Extremities: clear Internal Medicine Assmt/Plan - Assessment Assessment: agitation general weakness htn DM - Plan Plan: as per order sheet fall precaution cpm Nutritional Asmnt/Malnutr-PDOC - Dietary Evaluation Malnutrition Findings (Please click <Entered> for more info): Nutritional Asmnt/Malnutrition Start: 01/31/18 10: 49 Text: Status: Complete Freq: Protocol: Document 01/31/18 10:50 [email or web address] (Rec: 01/31/18 11:09 [email or web address]- [id number]) Nutritional Asmnt/Malnutrition Patient General Information Nutritional Screening Low Risk Diagnosis Psychosis, increased agitation Pertinent Medical Hx/Surgical Hx Hypertension, diabetes Subjective Information Patient was admitted from [facility]. Current Diet Order/ Nutrition Support Regular Patient / S.O Not Indicated Pertinent Medications maalox, vitamin C, Pepcid, MOM , Theragran, Vitamin B6 Pertinent Labs Na 134 Nutritional Hx/Data Height 1.52 m Height (Calculated Centimeters) 152.4 Current Weight (lbs) 70.307 kg Weight (Calculated Kilograms) 70.3 Weight (Calculated Grams) 97401.8 Schlater Body Weight 100 % Schlater Body Weight 155 Body Mass Index (BMI) 30.2 Recent Weight Change No Weight Status Obese GI Symptoms GI Symptoms None Last BM 01/29 x 1 Difficult in: None Food Allergies No Cultural/Ethnic/Scientology Belief None indicated Usual diet at home unknown Skin Integrity/Comment: Keshav 19, dryness Current %PO Good (75-100%) Estimated Nutritional Goals BEE in Kcals: Adj wt of IBW Calories/Kcals/Kg 27-32 kcal/kg Using Adj wt 51. 7 kg Kcals Calculated 6849-2620 kcal/day Protein: Adj wt of IBW Protein g/k-1.2 gm/kg using Adj wt Protein Calculated 50-60 gm/day Fluid: ml 7409-6529 ml/day (1 ml/kcal) Nutritional Problem 1. Problem Problem Altered nutrition related lab values related to Etiology electrolyte imbalance aeb Signs/Symptoms: Na 134 Intervention/Recommendation Comments 1. Continue Regular diet as tolerated by patient. 2. Consider re-checking sodium level; if still hyponatremic, consider possible fluid restriction. Expected Outcomes/Goals Expected Outcomes/Goals Oral intake >75% of meals, weight stable or trend toward ideal body weight, nutrition related labs WNL
[2018-02-02] MEDS: Multivitamin Tab PO SCH (08:35)
--- NOTE | 2018-02-02 15:31 | Internal Medicine Prog Note ---
Internal Medicine Subjective - Subjective Patient seen and examined:: chart reviewed Patient is:: awake, verbal, other (confused) Per staff patient has:: no adverse event Internal Medicine Objective - Results Result Diagrams: 01/26/18 20:30 01/26/18 20:30 Recent Labs: Laboratory Last Values WBC 9.5 Th/cmm (4.8-10.8) 01/26/18 20:30 RBC 4.59 Mil/cmm (3.80-5.20) 01/26/18 20:30 Hgb 13.5 gm/dL (12-16) 01/26/18 20:30 Hct 40.3 % (41.0-60) L 01/26/18 20:30 MCV 87.7 fl (81-100) 01/26/18 20:30 MCH 29.3 pg (27.0-31.0) 01/26/18 20:30 MCHC Differential 33.4 pg (28.0-36.0) 01/26/18 20:30 RDW 13.3 % (11.5-20.0) 01/26/18 20:30 Plt Count 188 Th/cmm (150-400) 01/26/18 20:30 MPV 9.4 fl 01/26/18 20:30 Neutrophils % 67.7 % (40.0-80.0) 01/26/18 20:30 Lymphocytes % 22.5 % (20.0-50.0) 01/26/18 20:30 Monocytes % 6.2 % (2.0-10.0) 01/26/18 20:30 Eosinophils % 2.8 % (0.0-5.0) 01/26/18 20:30 Basophils % 0.8 % (0.0-2.0) 01/26/18 20:30 Sodium 134 mEq/L (136-145) L 01/26/18 20:30 Potassium 3.5 mEq/L (3.5-5.1) 01/26/18 20:30 Chloride 104 mEq/L (98-107) 01/26/18 20:30 Carbon Dioxide 23.5 mEq/L (21.0-31.0) 01/26/18 20:30 Anion Gap 10.0 (7.0-16.0) 01/26/18 20:30 BUN 19 mg/dL (7-25) 01/26/18 20:30 Creatinine 0.9 mg/dL (0.6-1.2) 01/26/18 20:30 Est GFR ( Amer) TNP 01/26/18 20:30 Est GFR (Non-Af Amer) TNP 01/26/18 20:30 BUN/Creatinine Ratio 21.1 01/26/18 20:30 Glucose 120 mg/dL (70-105) H 01/26/18 20:30 Whole Bld Lactic Acid 0.64 mmol/L (0.60-1.99) 01/26/18 20:30 Calcium 8.8 mg/dL (8.6-10.3) 01/26/18 20:30 Total Bilirubin 0.2 mg/dL (0.3-1.0) L 01/26/18 20:30 AST 20 U/L (13-39) 01/26/18 20:30 ALT 14 U/L (7-52) 01/26/18 20:30 Alkaline Phosphatase 67 U/L (34-104) 01/26/18 20:30 Troponin I 0.01 ng/mL (0.01-0.05) 01/26/18 20:30 Total Protein 7.3 gm/dL (6.0-8.3) 01/26/18 20:30 Albumin 3.8 gm/dL (3.7-5.3) 01/26/18 20:30 Globulin 3.5 gm/dL 01/26/18 20:30 Albumin/Globulin Ratio 1.1 (1.0-1.8) 01/26/18 20:30 Triglycerides 89 mg/dL (<150) 01/26/18 20:30 Cholesterol 185 mg/dL (<200) 01/26/18 20:30 LDL Cholesterol Direct 96 mg/dL (75-193) 01/26/18 20:30 HDL Cholesterol 65 mg/dL (23-92) 01/26/18 20:30 - Physical Exam Vitals and I&O: Vital Signs Temp 97.0 F 02/02/18 06:20 Pulse 68 02/02/18 06:20 Resp 18 02/02/18 06:20 BP 142/74 02/02/18 06:20 Pulse Ox 99 02/02/18 06:20 Intake & Output 02/01/18 02/02/18 02/02/18 18:59 06:59 18:59 Intake Total 240 Balance 240 Intake: Oral 240 Other: # Voids 2 Active Medications: Current Medications Acetaminophen (Tylenol) 650 mg PO Q4HR PRN PRN Reason: Mild Pain / Temp above 100 Stop: 03/27/18 23:46 Al Hydrox/Mg Hydrox/Simethicone (Maalox) 30 ml PO Q4HR PRN PRN Reason: GI DISTRESS Stop: 03/27/18 23:46 Ascorbic Acid (Vitamin C) 500 mg PO DAILY [facility] Stop: 03/28/18 08:59 Last Admin: 02/02/18 08:36 Dose: 500 mg Donepezil HCl (Aricept) 10 mg PO HS [facility] Stop: 03/28/18 20:59 Last Admin: 02/01/18 20:51 Dose: 10 mg Famotidine (Pepcid) 20 mg PO DAILY [facility] Stop: 03/28/18 08:59 Last Admin: 02/02/18 08:35 Dose: 20 mg Gabapentin (Neurontin) 300 mg PO BID [facility] Stop: 03/28/18 08:59 Last Admin: 02/02/18 08:35 Dose: 300 mg Lorazepam (Ativan) 0.5 mg PO Q4HR PRN; Protocol PRN Reason: Anxiety/Agitation Stop: 02/25/18 23:46 Last Admin: 02/01/18 03:08 Dose: 0.5 mg Magnesium Hydroxide (Milk Of Magnesia) 30 ml PO HS PRN PRN Reason: Constipation Memantine (Namenda) 5 mg PO BID [facility] Stop: 03/30/18 08:59 Last Admin: 02/02/18 08:35 Dose: 5 mg Multivitamins/Vitamin C (Theragran) 1 tab PO DAILY [facility] Stop: 03/28/18 08:59 Last Admin: 02/02/18 08:35 Dose: 1 tab Olanzapine (Zyprexa) 10 mg PO HS [facility]; Protocol Stop: 03/28/18 20:59 Last Admin: 02/01/18 20:52 Dose: 10 mg Pyridoxine HCl (Vitamin B6) 25 mg PO DAILY [facility] Stop: 03/28/18 08:59 Last Admin: 02/02/18 08:35 Dose: 25 mg Zolpidem Tartrate (Ambien) 5 mg PO HS PRN PRN Reason: Insomnia Stop: 03/27/18 23:46 Last Admin: 01/31/18 20:42 Dose: 5 mg General: weak, demented HEENT: NC/AT Neck: Supple Lungs: CTAB Cardiovascular: Normal S1, Normal S2 Abdomen: soft, non-tender Extremities: clear Internal Medicine Assmt/Plan - Assessment Assessment: agitation general weakness htn DM - Plan Plan: as per order sheet fall precaution cpm Nutritional Asmnt/Malnutr-PDOC - Dietary Evaluation Malnutrition Findings (Please click <Entered> for more info): Nutritional Asmnt/Malnutrition Start: 01/31/18 10: 49 Text: Status: Complete Freq: Protocol: Document 01/31/18 10:50 MMULKENNY (Rec: 01/31/18 11:09 MMULKENNY ORDOÑEZ- FNS1) Nutritional Asmnt/Malnutrition Patient General Information Nutritional Screening Low Risk Diagnosis Psychosis, increased agitation Pertinent Medical Hx/Surgical Hx Hypertension, diabetes Subjective Information Patient was admitted from [facility]. Current Diet Order/ Nutrition Support Regular Patient / S.O Not Indicated Pertinent Medications maalox, vitamin C, Pepcid, MOM , Theragran, Vitamin B6 Pertinent Labs Na 134 Nutritional Hx/Data Height 1.52 m Height (Calculated Centimeters) 152.4 Current Weight (lbs) 70.307 kg Weight (Calculated Kilograms) 70.3 Weight (Calculated Grams) 15140.8 [place] Body Weight 100 % [place] Body Weight 155 Body Mass Index (BMI) 30.2 Recent Weight Change No Weight Status Obese GI Symptoms GI Symptoms None Last BM 01/29 x 1 Difficult in: None Food Allergies No Cultural/Ethnic/Religion Belief None indicated Usual diet at home unknown Skin Integrity/Comment: Keshav 19, dryness Current %PO Good (75-100%) Estimated Nutritional Goals BEE in Kcals: Adj wt of IBW Calories/Kcals/Kg 27-32 kcal/kg Using Adj wt 51. 7 kg Kcals Calculated 6157-7300 kcal/day Protein: Adj wt of IBW Protein g/k-1.2 gm/kg using Adj wt Protein Calculated 50-60 gm/day Fluid: ml 7912-3055 ml/day (1 ml/kcal) Nutritional Problem 1. Problem Problem Altered nutrition related lab values related to Etiology electrolyte imbalance aeb Signs/Symptoms: Na 134 Intervention/Recommendation Comments 1. Continue Regular diet as tolerated by patient. 2. Consider re-checking sodium level; if still hyponatremic, consider possible fluid restriction. Expected Outcomes/Goals Expected Outcomes/Goals Oral intake >75% of meals, weight stable or trend toward ideal body weight, nutrition related labs WNL
--- NOTE | 2018-02-02 17:39 | Progress Notes ---
DATE: 02/02/2018 SUBJECTIVE: Transferred from [facility], increased agitation. The patient pacing the unit, resistive to care, disoriented, forgetful, confused, labile at times, still some yelling episodes, poor orientation, very forgetful. The patient ____ to [place] upon stabilization. ASSESSMENT: The patient is disorganized, wandering in other patients' rooms, requiring a lot of redirection, prompting. PLAN: We will continue to monitor. The patient remains symptomatic, not safe for a lower level of care. She is on a medication regimen including Zyprexa. She seems to be somewhat calmer, no aggression, no agitation. JOB# [id number]
[2018-02-03] MEDS: Multivitamin Tab PO SCH (08:45)
--- NOTE | 2018-02-03 14:37 | Internal Medicine Prog Note ---
Internal Medicine Subjective - Subjective Service Date: 02/03/18 Patient is:: awake, verbal, other (confused) Patient Complaints of:: other Per staff patient has:: no adverse event Internal Medicine Objective - Results Result Diagrams: 01/26/18 20:30 01/26/18 20:30 Recent Labs: Laboratory Last Values WBC 9.5 Th/cmm (4.8-10.8) 01/26/18 20:30 RBC 4.59 Mil/cmm (3.80-5.20) 01/26/18 20:30 Hgb 13.5 gm/dL (12-16) 01/26/18 20:30 Hct 40.3 % (41.0-60) L 01/26/18 20:30 MCV 87.7 fl (81-100) 01/26/18 20:30 MCH 29.3 pg (27.0-31.0) 01/26/18 20:30 MCHC Differential 33.4 pg (28.0-36.0) 01/26/18 20:30 RDW 13.3 % (11.5-20.0) 01/26/18 20:30 Plt Count 188 Th/cmm (150-400) 01/26/18 20:30 MPV 9.4 fl 01/26/18 20:30 Neutrophils % 67.7 % (40.0-80.0) 01/26/18 20:30 Lymphocytes % 22.5 % (20.0-50.0) 01/26/18 20:30 Monocytes % 6.2 % (2.0-10.0) 01/26/18 20:30 Eosinophils % 2.8 % (0.0-5.0) 01/26/18 20:30 Basophils % 0.8 % (0.0-2.0) 01/26/18 20:30 Sodium 134 mEq/L (136-145) L 01/26/18 20:30 Potassium 3.5 mEq/L (3.5-5.1) 01/26/18 20:30 Chloride 104 mEq/L (98-107) 01/26/18 20:30 Carbon Dioxide 23.5 mEq/L (21.0-31.0) 01/26/18 20:30 Anion Gap 10.0 (7.0-16.0) 01/26/18 20:30 BUN 19 mg/dL (7-25) 01/26/18 20:30 Creatinine 0.9 mg/dL (0.6-1.2) 01/26/18 20:30 Est GFR ( Amer) TNP 01/26/18 20:30 Est GFR (Non-Af Amer) TNP 01/26/18 20:30 BUN/Creatinine Ratio 21.1 01/26/18 20:30 Glucose 120 mg/dL (70-105) H 01/26/18 20:30 Whole Bld Lactic Acid 0.64 mmol/L (0.60-1.99) 01/26/18 20:30 Calcium 8.8 mg/dL (8.6-10.3) 01/26/18 20:30 Total Bilirubin 0.2 mg/dL (0.3-1.0) L 01/26/18 20:30 AST 20 U/L (13-39) 01/26/18 20:30 ALT 14 U/L (7-52) 01/26/18 20:30 Alkaline Phosphatase 67 U/L (34-104) 01/26/18 20:30 Troponin I 0.01 ng/mL (0.01-0.05) 01/26/18 20:30 Total Protein 7.3 gm/dL (6.0-8.3) 01/26/18 20:30 Albumin 3.8 gm/dL (3.7-5.3) 01/26/18 20:30 Globulin 3.5 gm/dL 01/26/18 20:30 Albumin/Globulin Ratio 1.1 (1.0-1.8) 01/26/18 20:30 Triglycerides 89 mg/dL (<150) 01/26/18 20:30 Cholesterol 185 mg/dL (<200) 01/26/18 20:30 LDL Cholesterol Direct 96 mg/dL (75-193) 01/26/18 20:30 HDL Cholesterol 65 mg/dL (23-92) 01/26/18 20:30 - Physical Exam Vitals and I&O: Vital Signs Temp 96.8 F 02/03/18 06:22 Pulse 68 02/03/18 06:22 Resp 19 02/03/18 06:22 BP 147/68 02/03/18 06:22 Pulse Ox 97 02/03/18 06:22 Intake & Output 02/02/18 02/03/18 02/03/18 18:59 06:59 18:59 Intake Total 800 400 Balance 800 400 Weight (lbs) 155 lb Intake: Oral 800 400 Other: # Voids 3 1 # Bowel Movements 0 0 Weight Source Bedscale Active Medications: Current Medications Acetaminophen (Tylenol) 650 mg PO Q4HR PRN PRN Reason: Mild Pain / Temp above 100 Stop: 03/27/18 23:46 Al Hydrox/Mg Hydrox/Simethicone (Maalox) 30 ml PO Q4HR PRN PRN Reason: GI DISTRESS Stop: 03/27/18 23:46 Ascorbic Acid (Vitamin C) 500 mg PO DAILY [facility] Stop: 03/28/18 08:59 Last Admin: 02/03/18 08:45 Dose: 500 mg Donepezil HCl (Aricept) 10 mg PO HS [facility] Stop: 03/28/18 20:59 Last Admin: 02/02/18 22:00 Dose: 10 mg Famotidine (Pepcid) 20 mg PO DAILY [facility] Stop: 03/28/18 08:59 Last Admin: 02/03/18 08:45 Dose: 20 mg Gabapentin (Neurontin) 300 mg PO BID [facility] Stop: 03/28/18 08:59 Last Admin: 02/03/18 08:45 Dose: 300 mg Lorazepam (Ativan) 0.5 mg PO Q4HR PRN; Protocol PRN Reason: Anxiety/Agitation Stop: 02/25/18 23:46 Last Admin: 02/01/18 03:08 Dose: 0.5 mg Magnesium Hydroxide (Milk Of Magnesia) 30 ml PO HS PRN PRN Reason: Constipation Memantine (Namenda) 5 mg PO BID [facility] Stop: 03/30/18 08:59 Last Admin: 02/03/18 08:45 Dose: 5 mg Multivitamins/Vitamin C (Theragran) 1 tab PO DAILY [facility] Stop: 03/28/18 08:59 Last Admin: 02/03/18 08:45 Dose: 1 tab Olanzapine (Zyprexa) 10 mg PO HS [facility]; Protocol Stop: 03/28/18 20:59 Last Admin: 02/02/18 22:00 Dose: 10 mg Pyridoxine HCl (Vitamin B6) 25 mg PO DAILY [facility] Stop: 03/28/18 08:59 Last Admin: 02/03/18 08:44 Dose: 25 mg Zolpidem Tartrate (Ambien) 5 mg PO HS PRN PRN Reason: Insomnia Stop: 03/27/18 23:46 Last Admin: 01/31/18 20:42 Dose: 5 mg General: weak, demented HEENT: NC/AT Neck: Supple Lungs: CTAB Cardiovascular: Normal S1, Normal S2 Abdomen: soft, non-tender Extremities: clear Internal Medicine Assmt/Plan - Assessment Assessment: agitation general weakness htn DM - Plan Plan: continue current plan of care Nutritional Asmnt/Malnutr-PDOC - Dietary Evaluation Malnutrition Findings (Please click <Entered> for more info): Nutritional Asmnt/Malnutrition Start: 01/31/18 10: 49 Text: Status: Complete Freq: Protocol: Document 01/31/18 10:50 MMULHERN (Rec: 01/31/18 11:09 MMULHERN TIAGO- FNS1) Nutritional Asmnt/Malnutrition Patient General Information Nutritional Screening Low Risk Diagnosis Psychosis, increased agitation Pertinent Medical Hx/Surgical Hx Hypertension, diabetes Subjective Information Patient was admitted from [facility]. Current Diet Order/ Nutrition Support Regular Patient / S.O Not Indicated Pertinent Medications maalox, vitamin C, Pepcid, MOM , Theragran, Vitamin B6 Pertinent Labs Na 134 Nutritional Hx/Data Height 5 ft Height (Calculated Centimeters) 152.4 Current Weight (lbs) 155 lb Weight (Calculated Kilograms) 70.3 Weight (Calculated Grams) 60513.8 [place] Body Weight 100 % [place] Body Weight 155 Body Mass Index (BMI) 30.2 Recent Weight Change No Weight Status Obese GI Symptoms GI Symptoms None Last BM 01/29 x 1 Difficult in: None Food Allergies No Cultural/Ethnic/Anabaptist Belief None indicated Usual diet at home unknown Skin Integrity/Comment: Keshav 19, dryness Current %PO Good (75-100%) Estimated Nutritional Goals BEE in Kcals: Adj wt of IBW Calories/Kcals/Kg 27-32 kcal/kg Using Adj wt 51. 7 kg Kcals Calculated 4284-4974 kcal/day Protein: Adj wt of IBW Protein g/k-1.2 gm/kg using Adj wt Protein Calculated 50-60 gm/day Fluid: ml 1763-4831 ml/day (1 ml/kcal) Nutritional Problem 1. Problem Problem Altered nutrition related lab values related to Etiology electrolyte imbalance aeb Signs/Symptoms: Na 134 Intervention/Recommendation Comments 1. Continue Regular diet as tolerated by patient. 2. Consider re-checking sodium level; if still hyponatremic, consider possible fluid restriction. Expected Outcomes/Goals Expected Outcomes/Goals Oral intake >75% of meals, weight stable or trend toward ideal body weight, nutrition related labs WNL
--- NOTE | 2018-02-03 16:24 | Progress Notes ---
DATE: 02/03/2018 SUBJECTIVE: The patient in the hospital, increased agitation and pacing episodes. The patient seems to be calmer, more cooperative, still with frequent periods of confusion, disorientation, mumbling incoherently; however, no agitation, no escalation of behaviors, calm on exam, and does not know really where she is or what is going on. Sleeping, but arousable. ASSESSMENT: The patient seems to be calmer, more cooperative, likely approaching her baseline. We will continue Zyprexa current dosing. We will continue to monitor. Medications were reviewed. JOB# [id number]
[2018-02-04] MEDS: Multivitamin Tab PO SCH (09:14)
--- NOTE | 2018-02-04 10:18 | Internal Medicine Prog Note ---
Internal Medicine Subjective - Subjective Patient is:: awake, verbal, other (still confused) Patient Complaints of:: other Per staff patient has:: no adverse event Internal Medicine Objective - Results Result Diagrams: 01/26/18 20:30 01/26/18 20:30 Recent Labs: Laboratory Last Values WBC 9.5 Th/cmm (4.8-10.8) 01/26/18 20:30 RBC 4.59 Mil/cmm (3.80-5.20) 01/26/18 20:30 Hgb 13.5 gm/dL (12-16) 01/26/18 20:30 Hct 40.3 % (41.0-60) L 01/26/18 20:30 MCV 87.7 fl (81-100) 01/26/18 20:30 MCH 29.3 pg (27.0-31.0) 01/26/18 20:30 MCHC Differential 33.4 pg (28.0-36.0) 01/26/18 20:30 RDW 13.3 % (11.5-20.0) 01/26/18 20:30 Plt Count 188 Th/cmm (150-400) 01/26/18 20:30 MPV 9.4 fl 01/26/18 20:30 Neutrophils % 67.7 % (40.0-80.0) 01/26/18 20:30 Lymphocytes % 22.5 % (20.0-50.0) 01/26/18 20:30 Monocytes % 6.2 % (2.0-10.0) 01/26/18 20:30 Eosinophils % 2.8 % (0.0-5.0) 01/26/18 20:30 Basophils % 0.8 % (0.0-2.0) 01/26/18 20:30 Sodium 134 mEq/L (136-145) L 01/26/18 20:30 Potassium 3.5 mEq/L (3.5-5.1) 01/26/18 20:30 Chloride 104 mEq/L (98-107) 01/26/18 20:30 Carbon Dioxide 23.5 mEq/L (21.0-31.0) 01/26/18 20:30 Anion Gap 10.0 (7.0-16.0) 01/26/18 20:30 BUN 19 mg/dL (7-25) 01/26/18 20:30 Creatinine 0.9 mg/dL (0.6-1.2) 01/26/18 20:30 Est GFR ( Amer) TNP 01/26/18 20:30 Est GFR (Non-Af Amer) TNP 01/26/18 20:30 BUN/Creatinine Ratio 21.1 01/26/18 20:30 Glucose 120 mg/dL (70-105) H 01/26/18 20:30 Whole Bld Lactic Acid 0.64 mmol/L (0.60-1.99) 01/26/18 20:30 Calcium 8.8 mg/dL (8.6-10.3) 01/26/18 20:30 Total Bilirubin 0.2 mg/dL (0.3-1.0) L 01/26/18 20:30 AST 20 U/L (13-39) 01/26/18 20:30 ALT 14 U/L (7-52) 01/26/18 20:30 Alkaline Phosphatase 67 U/L (34-104) 01/26/18 20:30 Troponin I 0.01 ng/mL (0.01-0.05) 01/26/18 20:30 Total Protein 7.3 gm/dL (6.0-8.3) 01/26/18 20:30 Albumin 3.8 gm/dL (3.7-5.3) 01/26/18 20:30 Globulin 3.5 gm/dL 01/26/18 20:30 Albumin/Globulin Ratio 1.1 (1.0-1.8) 01/26/18 20:30 Triglycerides 89 mg/dL (<150) 01/26/18 20:30 Cholesterol 185 mg/dL (<200) 01/26/18 20:30 LDL Cholesterol Direct 96 mg/dL (75-193) 01/26/18 20:30 HDL Cholesterol 65 mg/dL (23-92) 01/26/18 20:30 - Physical Exam Vitals and I&O: Vital Signs Temp 97.8 F 02/04/18 06:23 Pulse 77 02/04/18 06:23 Resp 20 02/04/18 08:00 BP 127/70 02/04/18 06:23 Pulse Ox 100 02/04/18 06:23 Intake & Output 02/03/18 02/04/18 02/04/18 18:59 06:59 18:59 Intake Total 900 240 Balance 900 240 Weight (lbs) 70.307 kg Intake: Oral 900 240 Other: # Voids 3 3 # Bowel Movements 0 0 Weight Source Bedscale Active Medications: Current Medications Acetaminophen (Tylenol) 650 mg PO Q4HR PRN PRN Reason: Mild Pain / Temp above 100 Stop: 03/27/18 23:46 Al Hydrox/Mg Hydrox/Simethicone (Maalox) 30 ml PO Q4HR PRN PRN Reason: GI DISTRESS Stop: 03/27/18 23:46 Ascorbic Acid (Vitamin C) 500 mg PO DAILY [facility] Stop: 03/28/18 08:59 Last Admin: 02/04/18 09:14 Dose: 500 mg Donepezil HCl (Aricept) 10 mg PO HS [facility] Stop: 03/28/18 20:59 Last Admin: 02/03/18 21:09 Dose: 10 mg Famotidine (Pepcid) 20 mg PO DAILY [facility] Stop: 03/28/18 08:59 Last Admin: 02/04/18 09:14 Dose: 20 mg Gabapentin (Neurontin) 300 mg PO BID [facility] Stop: 03/28/18 08:59 Last Admin: 02/04/18 09:14 Dose: 300 mg Lorazepam (Ativan) 0.5 mg PO Q4HR PRN; Protocol PRN Reason: Anxiety/Agitation Stop: 02/25/18 23:46 Last Admin: 02/01/18 03:08 Dose: 0.5 mg Magnesium Hydroxide (Milk Of Magnesia) 30 ml PO HS PRN PRN Reason: Constipation Memantine (Namenda) 5 mg PO BID [facility] Stop: 03/30/18 08:59 Last Admin: 02/04/18 09:14 Dose: 5 mg Multivitamins/Vitamin C (Theragran) 1 tab PO DAILY [facility] Stop: 03/28/18 08:59 Last Admin: 02/04/18 09:14 Dose: 1 tab Olanzapine (Zyprexa) 10 mg PO HS [facility]; Protocol Stop: 03/28/18 20:59 Last Admin: 02/03/18 21:09 Dose: 10 mg Pyridoxine HCl (Vitamin B6) 25 mg PO DAILY [facility] Stop: 03/28/18 08:59 Last Admin: 02/04/18 09:14 Dose: 25 mg Zolpidem Tartrate (Ambien) 5 mg PO HS PRN PRN Reason: Insomnia Stop: 03/27/18 23:46 Last Admin: 02/03/18 21:10 Dose: 5 mg General: weak, other (confused), no demented HEENT: NC/AT Neck: Supple Lungs: CTAB Cardiovascular: Normal S1, Normal S2 Abdomen: soft, non-tender Extremities: clear Internal Medicine Assmt/Plan - Assessment Assessment: agitation general weakness htn DM - Plan Plan: as per psych fall precaution cpm Nutritional Asmnt/Malnutr-PDOC - Dietary Evaluation Malnutrition Findings (Please click <Entered> for more info): Nutritional Asmnt/Malnutrition Start: 01/31/18 10: 49 Text: Status: Complete Freq: Protocol: Document 01/31/18 10:50 MMULN (Rec: 01/31/18 11:09 MMULKENNY ORDOÑEZ- FNS1) Nutritional Asmnt/Malnutrition Patient General Information Nutritional Screening Low Risk Diagnosis Psychosis, increased agitation Pertinent Medical Hx/Surgical Hx Hypertension, diabetes Subjective Information Patient was admitted from [facility]. Current Diet Order/ Nutrition Support Regular Patient / S.O Not Indicated Pertinent Medications maalox, vitamin C, Pepcid, MOM , Theragran, Vitamin B6 Pertinent Labs Na 134 Nutritional Hx/Data Height 1.52 m Height (Calculated Centimeters) 152.4 Current Weight (lbs) 70.307 kg Weight (Calculated Kilograms) 70.3 Weight (Calculated Grams) 33325.8 [place] Body Weight 100 % [place] Body Weight 155 Body Mass Index (BMI) 30.2 Recent Weight Change No Weight Status Obese GI Symptoms GI Symptoms None Last BM 01/29 x 1 Difficult in: None Food Allergies No Cultural/Ethnic/Hinduism Belief None indicated Usual diet at home unknown Skin Integrity/Comment: Keshav 19, dryness Current %PO Good (75-100%) Estimated Nutritional Goals BEE in Kcals: Adj wt of IBW Calories/Kcals/Kg 27-32 kcal/kg Using Adj wt 51. 7 kg Kcals Calculated 9051-0885 kcal/day Protein: Adj wt of IBW Protein g/k-1.2 gm/kg using Adj wt Protein Calculated 50-60 gm/day Fluid: ml 3944-6859 ml/day (1 ml/kcal) Nutritional Problem 1. Problem Problem Altered nutrition related lab values related to Etiology electrolyte imbalance aeb Signs/Symptoms: Na 134 Intervention/Recommendation Comments 1. Continue Regular diet as tolerated by patient. 2. Consider re-checking sodium level; if still hyponatremic, consider possible fluid restriction. Expected Outcomes/Goals Expected Outcomes/Goals Oral intake >75% of meals, weight stable or trend toward ideal body weight, nutrition related labs WNL
--- NOTE | 2018-02-04 19:47 | Progress Notes ---
DATE: 02/04/2018 PSYCHIATRIC PROGRESS NOTE SUBJECTIVE: Chart reviewed and the patient interviewed. Also, discussed the patient's condition with the staff and reviewed records and labs. The patient is still confused and she still has disorganized thoughts. Also, the patient is still very slow in response, but also has periods of agitation and irritability. Today, the patient is mumbling and talking about "smoking cigarettes." She also is still having episodes of pacing up and down the unit in a confused state. Otherwise, the patient is compliant with taking her medications with no side effect of medications. ASSESSMENT: The patient is still confused and is still responding and agitated. TREATMENT PLAN: Continue monitoring her behavior and her condition closely. Also, continue adjusting psychotropic medications and work on behavioral modification. JOB# [id number]
[2018-02-05] MEDS: Multivitamin Tab PO SCH (09:19)
--- NOTE | 2018-02-05 16:17 | Internal Medicine Prog Note ---
Internal Medicine Subjective - Subjective Patient is:: awake, other (confused) Patient Complaints of:: other Per staff patient has:: no adverse event Internal Medicine Objective - Results Result Diagrams: 01/26/18 20:30 01/26/18 20:30 Recent Labs: Laboratory Last Values WBC 9.5 Th/cmm (4.8-10.8) 01/26/18 20:30 RBC 4.59 Mil/cmm (3.80-5.20) 01/26/18 20:30 Hgb 13.5 gm/dL (12-16) 01/26/18 20:30 Hct 40.3 % (41.0-60) L 01/26/18 20:30 MCV 87.7 fl (81-100) 01/26/18 20:30 MCH 29.3 pg (27.0-31.0) 01/26/18 20:30 MCHC Differential 33.4 pg (28.0-36.0) 01/26/18 20:30 RDW 13.3 % (11.5-20.0) 01/26/18 20:30 Plt Count 188 Th/cmm (150-400) 01/26/18 20:30 MPV 9.4 fl 01/26/18 20:30 Neutrophils % 67.7 % (40.0-80.0) 01/26/18 20:30 Lymphocytes % 22.5 % (20.0-50.0) 01/26/18 20:30 Monocytes % 6.2 % (2.0-10.0) 01/26/18 20:30 Eosinophils % 2.8 % (0.0-5.0) 01/26/18 20: Basophils % 0.8 % (0.0-2.0) 01/26/18 20:30 Sodium 134 mEq/L (136-145) L 01/26/18 20:30 Potassium 3.5 mEq/L (3.5-5.1) 01/26/18 20:30 Chloride 104 mEq/L (98-107) 01/26/18 20:30 Carbon Dioxide 23.5 mEq/L (21.0-31.0) 01/26/18 20:30 Anion Gap 10.0 (7.0-16.0) 01/26/18 20:30 BUN 19 mg/dL (7-25) 01/26/18 20:30 Creatinine 0.9 mg/dL (0.6-1.2) 01/26/18 20:30 Est GFR ( Amer) TNP 01/26/18 20:30 Est GFR (Non-Af Amer) TNP 01/26/18 20:30 BUN/Creatinine Ratio 21.1 01/26/18 20:30 Glucose 120 mg/dL (70-105) H 01/26/18 20:30 Whole Bld Lactic Acid 0.64 mmol/L (0.60-1.99) 01/26/18 20:30 Calcium 8.8 mg/dL (8.6-10.3) 01/26/18 20:30 Total Bilirubin 0.2 mg/dL (0.3-1.0) L 01/26/18 20:30 AST 20 U/L (13-39) 01/26/18 20:30 ALT 14 U/L (7-52) 01/26/18 20:30 Alkaline Phosphatase 67 U/L (34-104) 01/26/18 20:30 Troponin I 0.01 ng/mL (0.01-0.05) 01/26/18 20:30 Total Protein 7.3 gm/dL (6.0-8.3) 01/26/18 20:30 Albumin 3.8 gm/dL (3.7-5.3) 01/26/18 20:30 Globulin 3.5 gm/dL 01/26/18 20:30 Albumin/Globulin Ratio 1.1 (1.0-1.8) 01/26/18 20:30 Triglycerides 89 mg/dL (<150) 01/26/18 20:30 Cholesterol 185 mg/dL (<200) 01/26/18 20:30 LDL Cholesterol Direct 96 mg/dL (75-193) 01/26/18 20:30 HDL Cholesterol 65 mg/dL (23-92) 01/26/18 20:30 - Physical Exam Vitals and I&O: Vital Signs Temp 98.4 F 02/05/18 14:00 Pulse 80 02/05/18 14:00 Resp 20 02/05/18 14:00 BP 136/80 02/05/18 14:00 Pulse Ox 97 02/05/18 14:00 Intake & Output 1002/05/18 02/05/18 18:59 06:59 18:59 Intake Total 800 120 Balance 800 120 Intake: Oral 800 120 Other: # Voids 3 3 # Bowel Movements 0 Active Medications: Current Medications Acetaminophen (Tylenol) 650 mg PO Q4HR PRN PRN Reason: Mild Pain / Temp above 100 Stop: 03/27/18 23:46 Al Hydrox/Mg Hydrox/Simethicone (Maalox) 30 ml PO Q4HR PRN PRN Reason: GI DISTRESS Stop: 03/27/18 23:46 Ascorbic Acid (Vitamin C) 500 mg PO DAILY [facility] Stop: 03/28/18 08:59 Last Admin: 02/05/18 09:18 Dose: 500 mg Donepezil HCl (Aricept) 10 mg PO HS [facility] Stop: 03/28/18 20:59 Last Admin: 02/04/18 21:10 Dose: 10 mg Famotidine (Pepcid) 20 mg PO DAILY [facility] Stop: 03/28/18 08:59 Last Admin: 02/05/18 09:18 Dose: 20 mg Gabapentin (Neurontin) 300 mg PO BID [facility] Stop: 03/28/18 08:59 Last Admin: 02/05/18 09:18 Dose: 300 mg Lorazepam (Ativan) 0.5 mg PO Q4HR PRN; Protocol PRN Reason: Anxiety/Agitation Stop: 02/25/18 23:46 Last Admin: 02/01/18 03:08 Dose: 0.5 mg Magnesium Hydroxide (Milk Of Magnesia) 30 ml PO HS PRN PRN Reason: Constipation Memantine (Namenda) 5 mg PO BID [facility] Stop: 03/30/18 08:59 Last Admin: 02/05/18 09:18 Dose: 5 mg Multivitamins/Vitamin C (Theragran) 1 tab PO DAILY [facility] Stop: 03/28/18 08:59 Last Admin: 02/05/18 09:19 Dose: 1 tab Olanzapine (Zyprexa) 10 mg PO HS [facility]; Protocol Stop: 03/28/18 20:59 Last Admin: 02/04/18 21:10 Dose: 10 mg Pyridoxine HCl (Vitamin B6) 25 mg PO DAILY [facility] Stop: 03/28/18 08:59 Last Admin: 02/05/18 09:18 Dose: 25 mg Zolpidem Tartrate (Ambien) 5 mg PO HS PRN PRN Reason: Insomnia Stop: 03/27/18 23:46 Last Admin: 02/04/18 21:11 Dose: 5 mg General: weak, other (confused), no demented HEENT: NC/AT Neck: Supple Lungs: CTAB Cardiovascular: Normal S1, Normal S2 Abdomen: soft, non-tender Extremities: clear Internal Medicine Assmt/Plan - Assessment Assessment: agitation general weakness htn DM - Plan Plan: as per psych fall precaution cpm Nutritional Asmnt/Malnutr-PDOC - Dietary Evaluation Malnutrition Findings (Please click <Entered> for more info): Nutritional Asmnt/Malnutrition Start: 01/31/18 10: 49 Text: Status: Complete Freq: Protocol: Document 01/31/18 10:50 MMBRADY (Rec: 01/31/18 11:09 MMULKENNY ORDOÑEZ- FNS1) Nutritional Asmnt/Malnutrition Patient General Information Nutritional Screening Low Risk Diagnosis Psychosis, increased agitation Pertinent Medical Hx/Surgical Hx Hypertension, diabetes Subjective Information Patient was admitted from [facility]. Current Diet Order/ Nutrition Support Regular Patient / S.O Not Indicated Pertinent Medications maalox, vitamin C, Pepcid, MOM , Theragran, Vitamin B6 Pertinent Labs Na 134 Nutritional Hx/Data Height 1.52 m Height (Calculated Centimeters) 152.4 Current Weight (lbs) 70.307 kg Weight (Calculated Kilograms) 70.3 Weight (Calculated Grams) 27271.8 [place] Body Weight 100 % [place] Body Weight 155 Body Mass Index (BMI) 30.2 Recent Weight Change No Weight Status Obese GI Symptoms GI Symptoms None Last BM 01/29 x 1 Difficult in: None Food Allergies No Cultural/Ethnic/Sabianism Belief None indicated Usual diet at home unknown Skin Integrity/Comment: Keshav 19, dryness Current %PO Good (75-100%) Estimated Nutritional Goals BEE in Kcals: Adj wt of IBW Calories/Kcals/Kg 27-32 kcal/kg Using Adj wt 51. 7 kg Kcals Calculated 4320-5187 kcal/day Protein: Adj wt of IBW Protein g/k-1.2 gm/kg using Adj wt Protein Calculated 50-60 gm/day Fluid: ml 9979-6842 ml/day (1 ml/kcal) Nutritional Problem 1. Problem Problem Altered nutrition related lab values related to Etiology electrolyte imbalance aeb Signs/Symptoms: Na 134 Intervention/Recommendation Comments 1. Continue Regular diet as tolerated by patient. 2. Consider re-checking sodium level; if still hyponatremic, consider possible fluid restriction. Expected Outcomes/Goals Expected Outcomes/Goals Oral intake >75% of meals, weight stable or trend toward ideal body weight, nutrition related labs WNL
--- NOTE | 2018-02-06 08:07 | Progress Notes ---
DATE: 02/06/2018 SUBJECTIVE: Chart reviewed and the patient interviewed. Also discussed the patient's condition with the staff and reviewed records and labs. The patient is still anxious and restless. The patient also is still interacting minimally with others. She is still having mood swings and she still has high anxiety level. Otherwise, the patient is cooperative and compliant with taking her medications with no side effects of medications. ASSESSMENT: The patient is still agitated and psychotic. TREATMENT PLAN: Continue to monitor behavior and condition closely. Also, continue to work on behavioral modification. Also, we will discuss with the patient's daughter further treatment plan. [facility]# [id number]
[2018-02-06] MEDS: Multivitamin Tab PO SCH (08:55)
--- NOTE | 2018-02-06 10:51 | Progress Notes ---
DATE: DATE OF REPORT: 02/05/2018 SUBJECTIVE: Chart reviewed and the patient interviewed. Also discussed the patient's condition with the staff and reviewed records and labs. The patient is still confused and she is still wandering around the unit in a confused state. She also is still anxious and restless. The patient also still has difficulty with her mood and she is still having problems with her following directions, agitated, pacing up and down the unit. Otherwise, the patient is compliant with taking her medications with no side effect of medications. ASSESSMENT: The patient still confused and agitated. TREATMENT PLAN: Continue to monitor her behavior and her condition closely. Also, continue adjusting psychotropic medications and working on behavioral modification. [facility]# [id number]
--- NOTE | 2018-02-06 13:22 | Internal Medicine Prog Note ---
Internal Medicine Subjective - Subjective Service Date: 02/06/18 Patient is:: awake, other (confused) Patient Complaints of:: other Per staff patient has:: no adverse event Internal Medicine Objective - Results Result Diagrams: 01/26/18 20:30 01/26/18 20:30 Recent Labs: Laboratory Last Values WBC 9.5 Th/cmm (4.8-10.8) 01/26/18 20:30 RBC 4.59 Mil/cmm (3.80-5.20) 01/26/18 20:30 Hgb 13.5 gm/dL (12-16) 01/26/18 20:30 Hct 40.3 % (41.0-60) L 01/26/18 20:30 MCV 87.7 fl (81-100) 01/26/18 20:30 MCH 29.3 pg (27.0-31.0) 01/26/18 20:30 MCHC Differential 33.4 pg (28.0-36.0) 01/26/18 20:30 RDW 13.3 % (11.5-20.0) 01/26/18 20:30 Plt Count 188 Th/cmm (150-400) 01/26/18 20:30 MPV 9.4 fl 01/26/18 20:30 Neutrophils % 67.7 % (40.0-80.0) 01/26/18 20:30 Lymphocytes % 22.5 % (20.0-50.0) 01/26/18 20:30 Monocytes % 6.2 % (2.0-10.0) 01/26/18 20:30 Eosinophils % 2.8 % (0.0-5.0) 01/26/18 20:30 Basophils % 0.8 % (0.0-2.0) 01/26/18 20:30 Sodium 134 mEq/L (136-145) L 01/26/18 20:30 Potassium 3.5 mEq/L (3.5-5.1) 01/26/18 20:30 Chloride 104 mEq/L (98-107) 01/26/18 20:30 Carbon Dioxide 23.5 mEq/L (21.0-31.0) 01/26/18 20:30 Anion Gap 10.0 (7.0-16.0) 01/26/18 20:30 BUN 19 mg/dL (7-25) 01/26/18 20:30 Creatinine 0.9 mg/dL (0.6-1.2) 01/26/18 20:30 Est GFR ( Amer) TNP 01/26/18 20:30 Est GFR (Non-Af Amer) TNP 01/26/18 20:30 BUN/Creatinine Ratio 21.1 01/26/18 20:30 Glucose 120 mg/dL (70-105) H 01/26/18 20:30 Whole Bld Lactic Acid 0.64 mmol/L (0.60-1.99) 01/26/18 20:30 Calcium 8.8 mg/dL (8.6-10.3) 01/26/18 20:30 Total Bilirubin 0.2 mg/dL (0.3-1.0) L 01/26/18 20:30 AST 20 U/L (13-39) 01/26/18 20:30 ALT 14 U/L (7-52) 01/26/18 20:30 Alkaline Phosphatase 67 U/L (34-104) 01/26/18 20:30 Troponin I 0.01 ng/mL (0.01-0.05) 01/26/18 20:30 Total Protein 7.3 gm/dL (6.0-8.3) 01/26/18 20:30 Albumin 3.8 gm/dL (3.7-5.3) 01/26/18 20:30 Globulin 3.5 gm/dL 01/26/18 20:30 Albumin/Globulin Ratio 1.1 (1.0-1.8) 01/26/18 20:30 Triglycerides 89 mg/dL (<150) 01/26/18 20:30 Cholesterol 185 mg/dL (<200) 01/26/18 20:30 LDL Cholesterol Direct 96 mg/dL (75-193) 01/26/18 20:30 HDL Cholesterol 65 mg/dL (23-92) 01/26/18 20:30 - Physical Exam Vitals and I&O: Vital Signs Temp 97.6 F 02/06/18 06:43 Pulse 65 02/06/18 06:43 Resp 19 02/06/18 06:43 BP 137/85 02/06/18 06:43 Pulse Ox 97 10/26/18 06:43 Intake & Output 02/05/18 02/06/18 02/06/18 18:59 06:59 18:59 Intake Total 800 120 Balance 800 120 Intake: Oral 800 120 Other: # Voids 3 3 # Bowel Movements 0 Active Medications: Current Medications Acetaminophen (Tylenol) 650 mg PO Q4HR PRN PRN Reason: Mild Pain / Temp above 100 Stop: 03/27/18 23:46 Al Hydrox/Mg Hydrox/Simethicone (Maalox) 30 ml PO Q4HR PRN PRN Reason: GI DISTRESS Stop: 03/27/18 23:46 Ascorbic Acid (Vitamin C) [address] [facility] Stop: 03/28/18 08:59 Last Admin: 02/06/18 08:55 Dose: 500 mg Donepezil HCl (Aricept) 10 mg PO HS [facility] Stop: 03/28/18 20:59 Last Admin: 02/05/18 21:08 Dose: 10 mg Famotidine (Pepcid) 20 mg PO DAILY [facility] Stop: 03/28/18 08:59 Last Admin: 02/06/18 08:55 Dose: 20 mg Gabapentin (Neurontin) 300 mg PO BID [facility] Stop: 03/28/18 08:59 Last Admin: 02/06/18 08:55 Dose: 300 mg Lorazepam (Ativan) 0.5 mg PO Q4HR PRN; Protocol PRN Reason: Anxiety/Agitation Stop: 02/25/18 23:46 Last Admin: 02/01/18 03:08 Dose: 0.5 mg Magnesium Hydroxide (Milk Of Magnesia) 30 ml PO HS PRN PRN Reason: Constipation Memantine (Namenda) 5 mg PO BID [facility] Stop: 03/30/18 08:59 Last Admin: 02/06/18 08:55 Dose: 5 mg Multivitamins/Vitamin C (Theragran) 1 tab PO DAILY [facility] Stop: 03/28/18 08:59 Last Admin: 02/06/18 08:55 Dose: 1 tab Olanzapine (Zyprexa) [address] [facility]; Protocol Stop: 03/28/18 20:59 Last Admin: 02/05/18 21:07 Dose: 10 mg Pyridoxine HCl (Vitamin B6) 25 mg PO DAILY [facility] Stop: 03/28/18 08:59 Last Admin: 02/06/18 08:55 Dose: 25 mg Zolpidem Tartrate (Ambien) 5 mg PO HS PRN PRN Reason: Insomnia Stop: 03/27/18 23:46 Last Admin: 02/05/18 21:08 Dose: 5 mg General: weak, other (confused), no demented HEENT: NC/AT Neck: Supple Lungs: CTAB Cardiovascular: Normal S1, Normal S2 Abdomen: soft, non-tender Extremities: clear Internal Medicine Assmt/Plan - Assessment Assessment: agitation general weakness htn DM - Plan Plan: continue current plan of care Nutritional Asmnt/Malnutr-PDOC - Dietary Evaluation Malnutrition Findings (Please click <Entered> for more info): Nutritional Asmnt/Malnutrition Start: 01/31/18 10: 49 Text: Status: Complete Freq: Protocol: Document 01/31/18 10:50 MMULN (Rec: 01/31/18 11:09 MMULKENNY ORDOÑEZ- FNS1) Nutritional Asmnt/Malnutrition Patient General Information Nutritional Screening Low Risk Diagnosis Psychosis, increased agitation Pertinent Medical Hx/Surgical Hx Hypertension, diabetes Subjective Information Patient was admitted from [facility] [place]. Current Diet Order/ Nutrition Support Regular Patient / S.O Not Indicated Pertinent Medications maalox, vitamin C, Pepcid, MOM , Theragran, Vitamin B6 Pertinent Labs Na 134 Nutritional Hx/Data Height 5 ft Height (Calculated Centimeters) 152.4 Current Weight (lbs) 155 lb Weight (Calculated Kilograms) 70.3 Weight (Calculated Grams) 64291.8 [place] Body Weight 100 % [place] Body Weight 155 Body Mass Index (BMI) 30.2 Recent Weight Change No Weight Status Obese GI Symptoms GI Symptoms None Last BM 01/29 x 1 Difficult in: None Food Allergies No Cultural/Ethnic/Restoration Belief None indicated Usual diet at home unknown Skin Integrity/Comment: Keshav 19, dryness Current %PO Good (75-100%) Estimated Nutritional Goals BEE in Kcals: Adj wt of IBW Calories/Kcals/Kg 27-32 kcal/kg Using Adj wt 51. 7 kg Kcals Calculated 4985-2124 kcal/day Protein: Adj wt of IBW Protein g/k-1.2 gm/kg using Adj wt Protein Calculated 50-60 gm/day Fluid: ml 3326-2179 ml/day (1 ml/kcal) Nutritional Problem 1. Problem Problem Altered nutrition related lab values related to Etiology electrolyte imbalance aeb Signs/Symptoms: Na 134 Intervention/Recommendation Comments 1. Continue Regular diet as tolerated by patient. 2. Consider re-checking sodium level; if still hyponatremic, consider possible fluid restriction. Expected Outcomes/Goals Expected Outcomes/Goals Oral intake >75% of meals, weight stable or trend toward ideal body weight, nutrition related labs WNL
[2018-02-07] MEDS: Multivitamin Tab PO SCH (08:37)
--- NOTE | 2018-02-07 22:28 | Progress Notes ---
DATE: 02/07/2018 SUBJECTIVE: The patient was seen in the dining area. The patient appears to be guarded, still gets frustrated, episodes of poor impulse control. Otherwise, the patient appears to be in no acute distress. OBJECTIVE: VITAL SIGNS: Temperature 97.5, heart rate 73, blood pressure 143/74, respiration 20 and 96% on room air. HEENT: Head is atraumatic and normocephalic. Eyes: Bilateral conjunctivae are clear. Bilateral pupils are equally round and reactive. NECK: Supple. No JVD. CARDIOVASCULAR: S1 and S2, without murmur. PULMONARY: Clear to auscultation. GASTROINTESTINAL: Soft and nontender without guarding. Positive bowel sounds. MUSCULOSKELETAL: No clubbing. No cyanosis noted. ASSESSMENT: 1. Schizoaffective disorder. 2. Osteoarthritis. 3. Hypertension. PLAN: Plan is to keep the patient inpatient to Psychiatric Unit. We will follow up with a psychiatrist to monitor the patient's condition and behavior. Treatment plans were discussed with the patient's nurse. Treatment plans were discussed with Dr. Redmond. JOB# [id number]
--- NOTE | 2018-02-08 00:26 | Progress Notes ---
DATE: 02/07/[address] Grissom. Case was discussed with staff of the patient, reviewed records. This is a 77-year-old female who was admitted on 01/26/2018, transferred from [facility] because of increasing agitation, irritability is resisting care, yelling and screaming, has not been able to follow staff direction. The patient continues to isolate herself with minimal interaction, mood swings, irritability, continues to be anxious, easily agitated, psychotic. She has been compliant with the medication with no side effects. She is on Aricept 10 mg at bedtime and Namenda 5 mg twice a day and olanzapine 10 mg at bedtime. No side effects and Neurontin 300 mg twice a day and no side effects of medication, no sedation, no nausea, no extrapyramidal symptoms and we will continue to work with the patient in group therapy, milieu therapy, adjust medication as needed. JOB# [id number]
[2018-02-08] MEDS: Multivitamin Tab PO SCH (08:35)
--- NOTE | 2018-02-08 10:30 | Internal Medicine Prog Note ---
Internal Medicine Subjective - Subjective Patient is:: awake, other (irritable at times,gets fustrated ) Per staff patient has:: no adverse event Internal Medicine Objective - Results Result Diagrams: 01/26/18 20:30 01/26/18 20:30 Recent Labs: Laboratory Last Values WBC 9.5 Th/cmm (4.8-10.8) 01/26/18 20:30 RBC 4.59 Mil/cmm (3.80-5.20) 01/26/18 20:30 Hgb 13.5 gm/dL (12-16) 01/26/18 20:30 Hct 40.3 % (41.0-60) L 01/26/18 20:30 MCV 87.7 fl (81-100) 01/26/18 20:30 MCH 29.3 pg (27.0-31.0) 01/26/18 20: MCHC Differential 33.4 pg (28.0-36.0) 01/26/18 20: RDW 13.3 % (11.5-20.0) 01/26/18 20:30 Plt Count 188 Th/cmm (150-400) 01/26/18 20:30 MPV 9.4 fl 01/26/18 20:30 Neutrophils % 67.7 % (40.0-80.0) 01/26/18 20:30 Lymphocytes % 22.5 % (20.0-50.0) 01/26/18 20:30 Monocytes % 6.2 % (2.0-10.0) 01/26/18 20: Eosinophils % 2.8 % (0.0-5.0) 01/26/18 20: Basophils % 0.8 % (0.0-2.0) 01/26/18 20:30 Sodium 134 mEq/L (136-145) L 01/26/18 20:30 Potassium 3.5 mEq/L (3.5-5.1) 01/26/18 20:30 Chloride 104 mEq/L (98-107) 01/26/18 20:30 Carbon Dioxide 23.5 mEq/L (21.0-31.0) 01/26/18 20:30 Anion Gap 10.0 (7.0-16.0) 01/26/18 20:30 BUN 19 mg/dL (7-25) 01/26/18 20:30 Creatinine 0.9 mg/dL (0.6-1.2) 01/26/18 20:30 Est GFR ( Amer) TNP 01/26/18 20:30 Est GFR (Non-Af Amer) TNP 01/26/18 20:30 BUN/Creatinine Ratio 21.1 01/26/18 20:30 Glucose 120 mg/dL (70-105) H 01/26/18 20:30 Whole Bld Lactic Acid 0.64 mmol/L (0.60-1.99) 01/26/18 20:30 Calcium 8.8 mg/dL (8.6-10.3) 01/26/18 20:30 Total Bilirubin 0.2 mg/dL (0.3-1.0) L 01/26/18 20:30 AST 20 U/L (13-39) 01/26/18 20:30 ALT 14 U/L (7-52) 01/26/18 20:30 Alkaline Phosphatase 67 U/L (34-104) 01/26/18 20:30 Troponin I 0.01 ng/mL (0.01-0.05) 01/26/18 20:30 Total Protein 7.3 gm/dL (6.0-8.3) 01/26/18 20:30 Albumin 3.8 gm/dL (3.7-5.3) 01/26/18 20:30 Globulin 3.5 gm/dL 01/26/18 20:30 Albumin/Globulin Ratio 1.1 (1.0-1.8) 01/26/18 20:30 Triglycerides 89 mg/dL (<150) 01/26/18 20:30 Cholesterol 185 mg/dL (<200) 01/26/18 20:30 LDL Cholesterol Direct 96 mg/dL (75-193) 01/26/18 20:30 HDL Cholesterol 65 mg/dL (23-92) 01/26/18 20:30 - Physical Exam Vitals and I&O: Vital Signs Temp 97.0 F 02/08/18 06:28 Pulse 69 02/08/18 06:28 Resp 18 02/08/18 06:28 BP 149/90 02/08/18 06:28 Pulse Ox 96 02/08/18 06:28 Intake & Output 02/07/18 02/08/18 02/08/18 18:59 06:59 18:59 Intake Total 1350 240 Balance 1350 240 Intake: Oral 1350 240 Other: # Voids 2 # Bowel Movements 1 Active Medications: Current Medications Acetaminophen (Tylenol) 650 mg PO Q4HR PRN PRN Reason: Mild Pain / Temp above 100 Stop: 03/27/18 23:46 Al Hydrox/Mg Hydrox/Simethicone (Maalox) 30 ml PO Q4HR PRN PRN Reason: GI DISTRESS Stop: 03/27/18 23:46 Ascorbic Acid (Vitamin C) 500 mg PO DAILY [facility] Stop: 03/28/18 08:59 Last Admin: 02/08/18 08:36 Dose: 500 mg Donepezil HCl (Aricept) 10 mg PO HS [facility] Stop: 03/28/18 20:59 Last Admin: 02/07/18 20:23 Dose: 10 mg Famotidine (Pepcid) 20 mg PO DAILY [facility] Stop: 03/28/18 08:59 Last Admin: 02/08/18 08:35 Dose: 20 mg Gabapentin (Neurontin) 300 mg PO BID [facility] Stop: 03/28/18 08:59 Last Admin: 02/08/18 08:35 Dose: 300 mg Lorazepam (Ativan) 0.5 mg PO Q4HR PRN; Protocol PRN Reason: Anxiety/Agitation Stop: 02/25/18 23:46 Last Admin: 02/07/18 22:59 Dose: 0.5 mg Magnesium Hydroxide (Milk Of Magnesia) 30 ml PO HS PRN PRN Reason: Constipation Memantine (Namenda) 5 mg PO BID [facility] Stop: 03/30/18 08:59 Last Admin: 02/08/18 08:35 Dose: 5 mg Multivitamins/Vitamin C (Theragran) 1 tab PO DAILY [facility] Stop: 03/28/18 08:59 Last Admin: 02/08/18 08:35 Dose: 1 tab Olanzapine (Zyprexa) 10 mg PO HS [facility]; Protocol Stop: 03/28/18 20:59 Last Admin: 02/07/18 20:23 Dose: 10 mg Pyridoxine HCl (Vitamin B6) 25 mg PO DAILY [facility] Stop: 03/28/18 08:59 Last Admin: 02/08/18 08:35 Dose: 25 mg Zolpidem Tartrate (Ambien) 5 mg PO HS PRN PRN Reason: Insomnia Stop: 03/27/18 23:46 Last Admin: 02/07/18 20:23 Dose: 5 mg General: other (confused), no demented HEENT: NC/AT Neck: Supple Lungs: CTAB Cardiovascular: Normal S1, Normal S2 Abdomen: soft, non-tender Extremities: clear Internal Medicine Assmt/Plan - Assessment Assessment: agitation general weakness htn DM - Plan Plan: as per psych fall precaution cpm Nutritional Asmnt/Malnutr-PDOC - Dietary Evaluation Malnutrition Findings (Please click <Entered> for more info): Nutritional Asmnt/Malnutrition Start: 01/31/18 10: 49 Text: Status: Complete Freq: Protocol: Document 01/31/18 10:50 [email or web address] (Rec: 01/31/18 11:09 MMULKENNY ORDOÑEZ- FNS1) Nutritional Asmnt/Malnutrition Patient General Information Nutritional Screening Low Risk Diagnosis Psychosis, increased agitation Pertinent Medical Hx/Surgical Hx Hypertension, diabetes Subjective Information Patient was admitted from [facility]. Current Diet Order/ Nutrition Support Regular Patient / S.O Not Indicated Pertinent Medications maalox, vitamin C, Pepcid, MOM , Theragran, Vitamin B6 Pertinent Labs Na 134 Nutritional Hx/Data Height 1.52 m Height (Calculated Centimeters) 152.4 Current Weight (lbs) 70.307 kg Weight (Calculated Kilograms) 70.3 Weight (Calculated Grams) 62059.8 [place] Body Weight 100 % [place] Body Weight 155 Body Mass Index (BMI) 30.2 Recent Weight Change No Weight Status Obese GI Symptoms GI Symptoms None Last BM 01/29 x 1 Difficult in: None Food Allergies No Cultural/Ethnic/Sabianist Belief None indicated Usual diet at home unknown Skin Integrity/Comment: Keshav 19, dryness Current %PO Good (75-100%) Estimated Nutritional Goals BEE in Kcals: Adj wt of IBW Calories/Kcals/Kg 27-32 kcal/kg Using Adj wt 51. 7 kg Kcals Calculated 8236-9491 kcal/day Protein: Adj wt of IBW Protein g/k-1.2 gm/kg using Adj wt Protein Calculated 50-60 gm/day Fluid: ml 9505-6054 ml/day (1 ml/kcal) Nutritional Problem 1. Problem Problem Altered nutrition related lab values related to Etiology electrolyte imbalance aeb Signs/Symptoms: Na 134 Intervention/Recommendation Comments 1. Continue Regular diet as tolerated by patient. 2. Consider re-checking sodium level; if still hyponatremic, consider possible fluid restriction. Expected Outcomes/Goals Expected Outcomes/Goals Oral intake >75% of meals, weight stable or trend toward ideal body weight, nutrition related labs WNL
--- NOTE | 2018-02-08 16:58 | Progress Notes ---
DATE: 02/08/2018 SUBJECTIVE: Case was discussed with staff of the patient and reviewed records. The patient continues to have episodes of agitation and irritability, continues to be unpredictable and impulsive, isolating herself. [place], unable to participate in meaningful conversation or make safe plan for self-care. She is demented, confused, very poor insight. No side effects of the medication, no sedation, no nausea, no extrapyramidal symptoms. We will continue with the patient in group therapy, milieu therapy, adjust the medication as needed. JOB# [id number]
[2018-02-09] MEDS: Multivitamin Tab PO SCH (08:53)
--- NOTE | 2018-02-09 09:05 | Discharge Summary ---
DATE OF DISCHARGE: 02/09/2018 DATE OF DISCHARGE: 02/09/2018. FINAL DIAGNOSES AND PRIMARY DIAGNOSES: Schizoaffective disorder, bipolar type, with psychotic features. SECONDARY DIAGNOSES: Dementia, moderate, with behavior problems and psychosis. REASON FOR HOSPITALIZATION: The patient was admitted to the hospital from [facility] because of irritability, agitation, increased yelling and screaming at the facility. HOSPITAL COURSE: The patient continued to be extremely agitated and in irritable mood. The patient also was confused, anxious, and irritable. Also, her affect was labile. The patient was pacing up and down the unit in a confused state. She also was having difficulty following directions. The patient was started on Aricept that was increased to 10 mg at bedtime and Namenda 5 mg twice a day. She also took Zyprexa and the dose adjusted to 10 mg every bedtime. The patient's affect was brighter. The patient was less irritable and less agitated. She also was able to follow directions easy. The patient was discharged from the hospital. She returned back to [facility]. Physical examination of the patient came back as mentioned ____ the patient basically showed no major medical problems while in the hospital. Blood workup was also basically within normal. AFTER-DISCHARGE PLANS: The patient discharged from the hospital and returned to [facility] with plans for outpatient treatment there. EXPECTED OUTCOME AFTER DISCHARGE: Fair. The patient continued to take her psychotropic medications and follow up with discharge plans. [facility]# [id number]
== END 2018-02-09 12:45 | DRG 885 ==
LOC: ER 18:46 → GERO 21:15
PROVIDERS: ADMIT Psychiatry & Neurology Psychiatry; ATTEND Psychiatry & Neurology Psychiatry
DX: F25.0 Schizoaffective disorder, bipolar type (principal); F03.91 Unspecified dementia, unspecified severity, with behavioral disturbance; R53.1 Weakness; I10 Essential (primary) hypertension; E11.9 Type 2 diabetes mellitus without complications; R62.7 Adult failure to thrive; F41.9 Anxiety disorder, unspecified; M19.90 Unspecified osteoarthritis, unspecified site; F29 Unspecified psychosis not due to a substance or known physiological condition; Z88.0 Allergy status to penicillin; Z66 Do not resuscitate
CPT/HCPCS: 36415-UA; 71045-TC; 80053-TC; 80061-TC; 83036-90; 83605; 84484-TC; 85025-TC; 93005; G0410; Z7610

== ENCOUNTER 2018-12-15 18:47 | Inpatient (IN) | payer MEDICARE, MEDICAID ==
--- NOTE | 2018-12-15 19:28 | ED Physician Chart ---
ED Chief Complaint/HPI - Patient Information Date Seen:: 12/15/18 Time Seen:: 19:00 Chief Complaint:: Agitation History of Present Illness:: onset x 3 days of agitation and hostile behavior; no report of trauma, SIs, H/As , neck pain, cough, C/P, SOB, Abd. Pain, or urinary s/s Allergies:: Allergies Allergy/AdvReac Type Severity Reaction Status Date / Time Penicillins Allergy Verified 07/25/17 19:14 Vitals:: Vital Signs - 8 hr 12/15/18 19:02 Temp 97.9 F HR 65 RR 16 BP 118/75 O2 Sat % 96 Historian:: Patient, EMS Review:: Nurse's Note Reviewed, Old Chart Reviewed, EMS run form Reviewed ED Review of Systems - Review of Systems General/Constitutional: No fever, No chills, No weight loss, No weakness, No diaphoresis, No edema, No loss of appetite Skin: No skin lesions, No rash, No bruising Head: No headache, No light-headedness Eyes: No loss of vision, No pain, No diplopia ENT: No earache, No nasal drainage, No sore throat, No tinnitus Neck: No neck pain, No swelling, No thyromegaly, No stiffness, No mass noted Cardio Vascular: No chest pain, No palpitations, No PND, No orthopnea, No edema Pulmonary: No SOB, No cough, No sputum, No wheezing GI: No nausea, No vomiting, No diarrhea, No pain, No melena, No hematochezia, No constipation, No hematemesis G/U: No dysuria, No frequency, No hematuria, No nacturia Musculoskeletal: No bone or joint pain, No back pain, No muscle pain Endocrine: No polyuria, No polydipsia Psychiatric: Prior psych history, Depression, Anxiety, No suicidal ideation, No homicidal ideation, No auditory hallucination, No visual hallucination Hematopoietic: No bruising, No lymphadenopathy Allergic/Immuno: No urticaria, No angioedema Neurological: No syncope, No focal symptoms, No weakness, No paresthesia, No headache, No seizure, No dizziness, Confusion, No vertigo ED Past Medical History - Past Medical History Obtainable: Yes Past Medical History: HTN, PUD/GERD, Dementia Family History: HTN Social History: Non Smoker, No Alcohol, No Drug Use, Single, Care Facility Surgical History: None Psychiatricy History: Depression, Bipolar, Dementia Medication: Reviewed Family Medical History - Family Member Mother History Unknown: Yes Ethnicity: Unknown Living Status: Unknown Father History Unknown: Yes ED Physical Exam - Physical Examination General/Constitutional: Awake, Well-developed, well-nourished, Alert, No distress, GCS 15, Non-toxic appearing, Ambulatory Head: Atraumatic Eyes: Lids, conjuctiva normal, PERRL, EOMI Skin: Nl inspection, No rash, No skin lesions, No ecchymosis, Well hydrated, No lymphadenopathy ENMT: External ears, nose nl, Nasal exam nl, Lips, teeth, gums nl Neck: Nontender, Full ROM w/o pain, No JVD, No nuchal rigidity, No bruit, No mass, No stridor Respiratory: Nl effort/Exclusion, Clear to Auscultation, No Wheeze/Rhonchi/Rales Cardio Vascular: RRR, No murmur, gallop, rubs, NL S1 S2, Carotid/Femoral/Distal pulses equal bilaterally GI: No tenderness/rebounding/guarding, No organomegaly, No hernia, Normal BS's, Nondistended, No mass/bruits, No McBurney tenderness : No CVA tenderness Extremities: No tenderness or effusion, Full ROM, normal strength in all extremities, No edema, Normal digits & nails Neuro/Psych: Alert/oriented, DTR's symmetric, Normal sensory exam, Normal motor strength, Judgement/insight normal, Mood normal, Normal gait, No focal deficits Other Neuro/Psych comments:: + Psychomotor Agitation; no SIs; Mood/Affect: Labile Misc: Normal back, No paraspinal tenderness ED Septic Shock - . Is Septic Shock (SBP<90, OR Lactate>4 mmol\L) present?: No - <6hrs of presentation: Vital Signs: Vital Signs - 8 hr 12/15/18 19:02 Temp 97.9 F HR 65 RR 16 BP 118/75 O2 Sat % 96 ED Reassessment (Disposition) - Reassessment Reassessment Condition:: Improved - Diagnosis Diagnosis:: Agitation; Medical Cleaance; Psychosis; Dementia
[2018-12-15 20:06] LABS: HEMATOCRIT 37.8 % (41.0-60); HEMOGLOBIN 12.8 gm/dL (12-16); MEAN CELL VOLUME 87.8 fl (81-100); MEAN CORPUSCULAR HEMOGLOBIN 29.8 pg (27.0-31.0); MEAN CORPUSCULAR HGB CONC 33.9 pg (28.0-36.0); WHITE BLOOD COUNT 7.4 Th/cmm (4.8-10.8)
[2018-12-15 20:07] LABS: % BASOPHILS 1.2 % (0.0-2.0); % EOSINOPHILS 5.1 % (0.0-5.0); % LYMPHOCYTES 27.6 % (20.0-50.0); % MONOCYTES 8.9 % (2.0-10.0); % NEUTROPHILS 57.2 % (40.0-80.0); BASOPHILE ABSOLUTE 0.1 Th/cumm (0-0.2); EOSINOPHILE ABSOLUTE 0.4 Th/cmm (0.1-0.4); MONOCYTE ABSOLUTE 0.7 Th/cmm (0.3-1.0); NEUTROPHILE ABSOLUTE 4.2 Th/cmm (1.8-8.0); PLATELET COUNT 145 Th/cmm (150-400); RED CELL DISTRIBUTION WIDTH 13.7 % (11.5-20.0)
[2018-12-15 20:17] LABS: ACETAMINOPHEN < 10.0 ug/mL (10.0-30.0); ALB/GLOB RATIO 1.1 (1.0-1.8); ALBUMIN 3.7 gm/dL (3.7-5.3); ALKALINE PHOSPHATASE 58 U/L (34-104); BUN - UREA NITROGEN 22 mg/dL (7-25); CALCIUM SERUM 8.9 mg/dL (8.6-10.3); CARBON DIOXIDE 27.6 mEq/L (21.0-31.0); CHLORIDE 107 mEq/L (98-107); CHOLESTEROL 160 mg/dL (<200); CREATININE - SERUM 1.1 mg/dL (0.6-1.2); GLUCOSE 100 mg/dL (70-105); HDL -HIGH DENSITY LIPOPROTEIN 62 mg/dL (23-92); POTASSIUM SERUM 3.6 mEq/L (3.5-5.1); SGOT 18 U/L (13-39); SGPT/ALT 9 U/L (7-52); SODIUM SERUM 141 mEq/L (136-145); TOTAL PROTEIN,SERUM 7.1 gm/dL (6.0-8.3); TRIGLYCERIDES 58 mg/dL (<150)
[2018-12-15 21:46] VITALS: BP 149/74
[2018-12-15] MEDS ORDERED: Maalox 30 mL Cup PO PRN (21:47)
[2018-12-15] MEDS ORDERED: Acetaminophen 500 MG TAB PO PRN (21:52)
[2018-12-15] MEDS ORDERED: Magnesium Hydroxide (MOM) 30 mL UDC PO PRN (21:52)
[2018-12-15 23:11] LABS: BILIRUBIN,TOTAL 0.3 mg/dL (0.3-1.0)
[2018-12-16] MEDS: Multivitamin Tab PO SCH (08:44)
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
--- NOTE | 2018-12-16 12:22 | History and Physical ---
History of Present Illness - HPI Chief Complaint: 78 y/o female patient was brought in to ER due to Agitation. HPI: 78 y/o female patient was admitted to [facility] due to Agitation. Patient has history of Hypertension, Peptic Ulcer disease, GERD, Dementia, Psychosis, Bipolar disease and Depression. Patient had an ER assessment and a complete workup was done. Patient was diagnosed with Agitation. Patient will have a Psych evaluation. I will follow, treat and monitor patient. Patient will continue current treatment plan as ordered. Vital Signs: Last Vital Signs Temp 97.7 F 12/16/18 04:37 Pulse 73 12/16/18 04:37 Resp 19 12/16/18 04:37 BP 140/71 12/16/18 04:37 Pulse Ox 98 12/16/18 04:37 Past Medical History Cardiovascular: Report: HTN Pulmonary: Report: No Pertinent Hx [employer]: Report: Dementia GI: Report: GERD, Peptic Ulcer Psych: Report: Bipolar, Depression, Psychosis Musculoskeletal: Report: No Pertinent Hx Rheumatologic: Report: No pertinent Hx Infectious Disease: Report: No Pertinent Hx Renal/: Report: No Pertinent Hx Endocrine: Report: No Pertinent Hx Dermatology: Report: No Pertinent Hx - Past Surgical History Past Surgical History: No pertinent Hx Family Medical History - Family Member Mother History Unknown: Yes Ethnicity: Unknown Living Status: Unknown Father History Unknown: Yes Social History Smoke: No Alcohol: None Drugs: None Lives: Residential Domestic Violence: Negative Health Maintenance Health Maintenance: Other (Please see chart.) - Medications Home Medications: Home Medication Medication Instructions Recorded Type Acetaminophen [Tylenol] 650 mg PO Q4HR PRN tab 02/09/18 Rx Donepezil Hcl [Aricept] 10 mg PO HS tab 02/09/18 Rx Famotidine [Pepcid] 20 mg PO DAILY tab 02/09/18 Rx Gabapentin [Neurontin*] 300 mg PO BID cap 02/09/18 Rx Magnesium Hydroxide [Milk of 30 ml PO HS PRN udc 02/09/18 Rx Magnesia] OLANZapine [ZyPREXA] 10 mg PO HS tab 02/09/18 Rx Acetaminophen [Pain Reliever] 1,000 mg PO Q4H PRN 12/15/18 History Other Medications: Please see medication reconciliation sheet. - Allergies Allergies/Adverse Reactions: Allergies Allergy/AdvReac Type Severity Reaction Status Date / Time Penicillins Allergy Verified 07/25/17 19:14 Review of Systems - Review of Systems Review of Systems: Patient was admitted due to Agitation. Constitutional: Report: No Significant Eyes: Report: No Significant ENT: Report: No Significant Respiratory: Report: No Significant Cardiovascular: Report: No Significant Gastrointestinal: Report: No Significant Genitourinary: Report: No Significant Musculoskeletal: Report: No Significant Skin: Report: No Significant Neurological: Report: Other (Agitation.) Physical Exam - Physical Exam HEENT: Report: Ears Nose Throat within normal limits Neck: Report: Within normal limits Cardiovascular Systems: Report: +s1/s2 noted Respiratory: Report: Breath Sounds are within normal limits Abdomen: Report: Non-tender to palpation Back: Report: Inspection of back is within normal limits. Extremities: Report: Non-tender to palpation. Skin: Report: Color of skin is within normal limits Neuro/Psych: Report: Other (Agitated.) - Lab Results All Lab Results last 24 hours: Laboratory Results - last 24 hr 12/15/18 12/15/18 12/15/18 19:40 19:40 19:40 WBC 7.4 RBC 4.30 Hgb 12.8 Hct 37.8 L MCV 87.8 MCH 29.8 MCHC Differential 33.9 RDW 13.7 Plt Count 145 L MPV 10.2 Neutrophils % 57.2 Lymphocytes % 27.6 Monocytes % 8.9 Eosinophils % 5.1 H Basophils % 1.2 Sodium 141 Potassium 3.6 Chloride 107 Carbon Dioxide 27.6 Anion Gap 10.0 BUN 22 Creatinine 1.1 Est GFR ( Amer) TNP Est GFR (Non-Af Amer) TNP BUN/Creatinine Ratio 20.0 Glucose 100 Calcium 8.9 Total Bilirubin 0.3 AST 18 ALT 9 Alkaline Phosphatase 58 Troponin I Total Protein 7.1 Albumin 3.7 Globulin 3.4 Albumin/Globulin Ratio 1.1 Triglycerides 58 Cholesterol 160 LDL Cholesterol Direct 87 HDL Cholesterol 62 TSH 1.08 Salicylates < 25.0 L Acetaminophen < 10.0 L Ethyl Alcohol < 10 12/15/18 19:40 WBC RBC Hgb Hct MCV MCH MCHC Differential RDW Plt Count MPV Neutrophils % Lymphocytes % Monocytes % Eosinophils % Basophils % Sodium Potassium Chloride Carbon Dioxide Anion Gap BUN Creatinine Est GFR ( Amer) Est GFR (Non-Af Amer) BUN/Creatinine Ratio Glucose Calcium Total Bilirubin AST ALT Alkaline Phosphatase Troponin I 0.01 Total Protein Albumin Globulin Albumin/Globulin Ratio Triglycerides Cholesterol LDL Cholesterol Direct HDL Cholesterol TSH Salicylates Acetaminophen Ethyl Alcohol - Assessment Assessment: Agitation. Dementia. History of Hypertension. History of Peptic Ulcer disease/GERD. History of Psychosis. History of Bipolar disease. History of Depression. - Plan Plan: Continuation of care. Psych management per Psych. Monitor Labs. Monitor vitals, continue B/P meds as directed. Continue present meds as directed. Monitor Diet/Nutritional support. Pain Management. Physical therapy/Occupational therapy. Safety precaution. Supportive care. Fall precaution, frequent nursing rounds, and as needed restraints to prevent fall. Continue collaborating with consulting specialists, case management and nursing team. Will Monitor patient and continue current treatment plan as ordered.
[2018-12-17 06:08] LABS: A1C 5.7 % (4.8-5.6)
[2018-12-17] MEDS: Multivitamin Tab PO SCH (08:57)
--- NOTE | 2018-12-17 12:03 | Internal Medicine Prog Note ---
Internal Medicine Subjective - Subjective Service Date: 12/17/18 Patient seen and examined:: with staff Patient is:: awake Per staff patient has:: tolerating meds Internal Medicine Objective - Results Result Diagrams: 12/15/18 19:40 12/15/18 19:40 Recent Labs: Laboratory Last Values WBC 7.4 Th/cmm (4.8-10.8) 12/15/18 19:40 RBC 4.30 Mil/cmm (3.80-5.20) 12/15/18 19:40 Hgb 12.8 gm/dL (12-16) 12/15/18 19:40 Hct 37.8 % (41.0-60) L 12/15/18 19:40 MCV 87.8 fl (81-100) 12/15/18 19:40 MCH 29.8 pg (27.0-31.0) 12/15/18 19:40 MCHC Differential 33.9 pg (28.0-36.0) 12/15/18 19:40 RDW 13.7 % (11.5-20.0) 12/15/18 19:40 Plt Count 145 Th/cmm (150-400) L 12/15/18 19:40 MPV 10.2 fl 12/15/18 19:40 Neutrophils % 57.2 % (40.0-80.0) 12/15/18 19:40 Lymphocytes % 27.6 % (20.0-50.0) 12/15/18 19:40 Monocytes % 8.9 % (2.0-10.0) 12/15/18 19:40 Eosinophils % 5.1 % (0.0-5.0) H 12/15/18 19:40 Basophils % 1.2 % (0.0-2.0) 12/15/18 19:40 Sodium 141 mEq/L (136-145) 12/15/18 19:40 Potassium 3.6 mEq/L (3.5-5.1) 12/15/18 19:40 Chloride 107 mEq/L (98-107) 12/15/18 19:40 Carbon Dioxide 27.6 mEq/L (21.0-31.0) 12/15/18 19:40 Anion Gap 10.0 (7.0-16.0) 12/15/18 19:40 BUN 22 mg/dL (7-25) 12/15/18 19:40 Creatinine 1.1 mg/dL (0.6-1.2) 12/15/18 19:40 Est GFR ( Amer) TNP 12/15/18 19:40 Est GFR (Non-Af Amer) TNP 12/15/18 19:40 BUN/Creatinine Ratio 20.0 12/15/18 19:40 Glucose 100 mg/dL (70-105) 12/15/18 19:40 Calcium 8.9 mg/dL (8.6-10.3) 12/15/18 19:40 Total Bilirubin 0.3 mg/dL (0.3-1.0) 12/15/18 19:40 AST 18 U/L (13-39) 12/15/18 19:40 ALT 9 U/L (7-52) 12/15/18 19:40 Alkaline Phosphatase 58 U/L (34-104) 12/15/18 19:40 Troponin I 0.01 ng/mL (0.01-0.05) 12/15/18 19:40 Total Protein 7.1 gm/dL (6.0-8.3) 12/15/18 19:40 Albumin 3.7 gm/dL (3.7-5.3) 12/15/18 19:40 Globulin 3.4 gm/dL 12/15/18 19:40 Albumin/Globulin Ratio 1.1 (1.0-1.8) 12/15/18 19:40 Triglycerides 58 mg/dL (<150) 12/15/18 19:40 Cholesterol 160 mg/dL (<200) 12/15/18 19:40 LDL Cholesterol Direct 87 mg/dL (75-193) 12/15/18 19:40 HDL Cholesterol 62 mg/dL (23-92) 12/15/18 19:40 TSH 1.08 uIU/ml (0.34-5.60) 12/15/18 19:40 Salicylates < 25.0 mg/L (30.0-100.0) L 12/15/18 19:40 Acetaminophen < 10.0 ug/mL (10.0-30.0) L 12/15/18 19:40 Ethyl Alcohol < 10 mg/dL (0-10) 12/15/18 19:40 - Physical Exam Vitals and I&O: Vital Signs Temp 97.8 F 12/16/18 14:00 Pulse 59 12/16/18 14:00 Resp 20 12/16/18 14:00 BP 124/61 12/16/18 14:00 Pulse Ox 99 12/16/18 14:00 Intake & Output 12/16/18 12/17/18 12/17/18 18:59 06:59 18:59 Intake Total 4100 Balance 4100 Intake: Oral 740 Other 3360 Other: # Voids 3 # Bowel Movements 0 Stool Characteristics Soft Soft Formed Formed Active Medications: Current Medications Acetaminophen (Tylenol Extra Strength) 1,000 mg PO Q4H PRN PRN Reason: Pain (Moderate) Stop: 02/13/19 21:51 Acetaminophen (Tylenol) 650 mg PO Q4HR PRN PRN Reason: Mild Pain / Temp above 100 Stop: 02/13/19 21:51 Al Hydrox/Mg Hydrox/Simethicone (Maalox) 30 ml PO Q4HR PRN PRN Reason: GI DISTRESS Stop: 02/13/19 21:46 Donepezil HCl (Aricept) 10 mg PO HS LUIS DANIEL Stop: 02/14/19 20:59 Last Admin: 12/16/18 20:38 Dose: 10 mg Famotidine (Pepcid) 20 mg PO DAILY LUIS DANIEL Stop: 02/14/19 08:59 Last Admin: 12/17/18 08:57 Dose: 20 mg Gabapentin (Neurontin) 300 mg PO BID LUIS DANIEL Stop: 02/14/19 08:59 Last Admin: 12/17/18 08:57 Dose: 300 mg Lorazepam (Ativan) 0.5 mg PO Q4HR PRN; Protocol PRN Reason: Anxiety Stop: 01/14/19 21:46 Last Admin: 12/17/18 00:25 Dose: 0.5 mg Magnesium Hydroxide (Milk Of Magnesia) 30 ml PO HS PRN PRN Reason: Constipation Stop: 02/13/19 21:51 Multivitamins/Vitamin C (Theragran) 1 tab PO DAILY LUIS DANIEL Stop: 02/14/19 08:59 Last Admin: 12/17/18 08:57 Dose: 1 tab Olanzapine (Zyprexa) 10 mg PO HS LUIS DANIEL; Protocol Stop: 02/14/19 20:59 Last Admin: 12/16/18 20:38 Dose: 10 mg Zolpidem Tartrate (Ambien) 5 mg PO HS PRN PRN Reason: Insomnia Stop: 02/13/19 21:46 Last Admin: 12/16/18 21:32 Dose: 5 mg General: alert HEENT: NC/AT, PERRLA Neck: Supple Lungs: CTAB Cardiovascular: RRR, Normal S1, Normal S2, without murmur Abdomen: soft, non-distended, positive bowel sound Extremities: excoriation Neurological: alert Internal Medicine Assmt/Plan - Assessment Assessment: Agitation. Dementia. History of Hypertension. History of Peptic Ulcer disease/GERD. History of Psychosis. History of Bipolar disease. History of Depression. - Plan Plan: Continuation of care. Psych management per Psych. Monitor Labs. Monitor vitals, continue B/P meds as directed. Continue present meds as directed. Monitor Diet/Nutritional support. Pain Management. Physical therapy/Occupational therapy. Safety precaution. Supportive care. Fall precaution, frequent nursing rounds, and as needed restraints to prevent fall. Continue collaborating with consulting specialists, case management and nursing team. Will Monitor patient and continue current treatment plan as ordered.
--- NOTE | 2018-12-17 12:48 | Progress Notes ---
DATE: 12/17/2018 Case was discussed with staff of the patient, reviewed records. The patient continues to be mostly to herself, not able to participate in meaningful conversation or make plan for self-care, unpredictable, impulsive, needing redirection. She has been compliant with the medication with no side effects, no sedation, no nausea, no extrapyramidal symptoms. We will continue outpatient group therapy, milieu therapy, and adjust medications as needed. [facility]# [id number]
[2018-12-18] MEDS: Multivitamin Tab PO SCH (09:37)
--- NOTE | 2018-12-18 11:31 | Internal Medicine Prog Note ---
Internal Medicine Subjective - Subjective Service Date: 12/18/18 Patient seen and examined:: with staff Patient is:: awake, verbal, agitated, confused Patient Complaints of:: other (Agitated and demented.) Per staff patient has:: no adverse event, no episodes of fall, tolerating meds Internal Medicine Objective - Results Result Diagrams: 12/15/18 19:40 12/15/18 19:40 Recent Labs: Laboratory Last Values WBC 7.4 Th/cmm (4.8-10.8) 12/15/18 19:40 RBC 4.30 Mil/cmm (3.80-5.20) 12/15/18 19:40 Hgb 12.8 gm/dL (12-16) 12/15/18 19:40 Hct 37.8 % (41.0-60) L 12/15/18 19:40 MCV 87.8 fl (81-100) 12/15/18 19:40 MCH 29.8 pg (27.0-31.0) 12/15/18 19:40 MCHC Differential 33.9 pg (28.0-36.0) 12/15/18 19:40 RDW 13.7 % (11.5-20.0) 12/15/18 19:40 Plt Count 145 Th/cmm (150-400) L 12/15/18 19:40 MPV 10.2 fl 12/15/18 19:40 Neutrophils % 57.2 % (40.0-80.0) 12/15/18 19:40 Lymphocytes % 27.6 % (20.0-50.0) 12/15/18 19:40 Monocytes % 8.9 % (2.0-10.0) 12/15/18 19:40 Eosinophils % 5.1 % (0.0-5.0) H 12/15/18 19:40 Basophils % 1.2 % (0.0-2.0) 12/15/18 19:40 Sodium 141 mEq/L (136-145) 12/15/18 19:40 Potassium 3.6 mEq/L (3.5-5.1) 12/15/18 19:40 Chloride 107 mEq/L (98-107) 12/15/18 19:40 Carbon Dioxide 27.6 mEq/L (21.0-31.0) 12/15/18 19:40 Anion Gap 10.0 (7.0-16.0) 12/15/18 19:40 BUN 22 mg/dL (7-25) 12/15/18 19:40 Creatinine 1.1 mg/dL (0.6-1.2) 12/15/18 19:40 Est GFR ( Amer) TNP 12/15/18 19:40 Est GFR (Non-Af Amer) TNP 12/15/18 19:40 BUN/Creatinine Ratio 20.0 12/15/18 19:40 Glucose 100 mg/dL (70-105) 12/15/18 19:40 Calcium 8.9 mg/dL (8.6-10.3) 12/15/18 19:40 Total Bilirubin 0.3 mg/dL (0.3-1.0) 12/15/18 19:40 AST 18 U/L (13-39) 12/15/18 19:40 ALT 9 U/L (7-52) 12/15/18 19:40 Alkaline Phosphatase 58 U/L (34-104) 12/15/18 19:40 Troponin I 0.01 ng/mL (0.01-0.05) 12/15/18 19:40 Total Protein 7.1 gm/dL (6.0-8.3) 12/15/18 19:40 Albumin 3.7 gm/dL (3.7-5.3) 12/15/18 19:40 Globulin 3.4 gm/dL 12/15/18 19:40 Albumin/Globulin Ratio 1.1 (1.0-1.8) 12/15/18 19:40 Triglycerides 58 mg/dL (<150) 12/15/18 19:40 Cholesterol 160 mg/dL (<200) 12/15/18 19:40 LDL Cholesterol Direct 87 mg/dL (75-193) 12/15/18 19:40 HDL Cholesterol 62 mg/dL (23-92) 12/15/18 19:40 TSH 1.08 uIU/ml (0.34-5.60) 12/15/18 19:40 Salicylates < 25.0 mg/L (30.0-100.0) L 12/15/18 19:40 Acetaminophen < 10.0 ug/mL (10.0-30.0) L 12/15/18 19:40 Ethyl Alcohol < 10 mg/dL (0-10) 12/15/18 19:40 - Physical Exam Vitals and I&O: Vital Signs Temp 97.2 F 12/17/18 14:00 Pulse 74 12/17/18 14:00 Resp 19 12/17/18 14:00 BP 132/79 12/17/18 14:00 Pulse Ox 97 12/17/18 14:00 Intake & Output 12/17/18 12/18/18 12/18/18 18:59 06:59 18:59 Intake Total 1100 Balance 1100 Intake: Oral 1100 Other: Stool Characteristics Soft Formed Active Medications: Current Medications Acetaminophen (Tylenol Extra Strength) 1,000 mg PO Q4H PRN PRN Reason: Pain (Moderate) Stop: 02/13/19 21:51 Acetaminophen (Tylenol) 650 mg PO Q4HR PRN PRN Reason: Mild Pain / Temp above 100 Stop: 02/13/19 21:51 Al Hydrox/Mg Hydrox/Simethicone (Maalox) 30 ml PO Q4HR PRN PRN Reason: GI DISTRESS Stop: 02/13/19 21:46 Donepezil HCl (Aricept) 10 mg PO HS LUIS DANIEL Stop: 02/14/19 20:59 Last Admin: 12/17/18 21:18 Dose: 10 mg Famotidine (Pepcid) 20 mg PO DAILY LUIS DANIEL Stop: 02/14/19 08:59 Last Admin: 12/18/18 09:37 Dose: 20 mg Gabapentin (Neurontin) 300 mg PO BID LUIS DANIEL Stop: 02/14/19 08:59 Last Admin: 12/18/18 09:37 Dose: 300 mg Lorazepam (Ativan) 0.5 mg PO Q4HR PRN; Protocol PRN Reason: Anxiety Stop: 01/14/19 21:46 Last Admin: 12/17/18 00:25 Dose: 0.5 mg Magnesium Hydroxide (Milk Of Magnesia) 30 ml PO HS PRN PRN Reason: Constipation Stop: 02/13/19 21:51 Multivitamins/Vitamin C (Theragran) 1 tab PO DAILY LUIS DANIEL Stop: 02/14/19 08:59 Last Admin: 12/18/18 09:37 Dose: 1 tab Olanzapine (Zyprexa) 10 mg PO HS LUIS DANIEL; Protocol Stop: 02/14/19 20:59 Last Admin: 12/17/18 21:18 Dose: 10 mg Zolpidem Tartrate (Ambien) 5 mg PO HS PRN PRN Reason: Insomnia Stop: 02/13/19 21:46 Last Admin: 12/17/18 21:19 Dose: 5 mg Physical Exam: Patient is agitated and demented. General: alert, demented HEENT: NC/AT, PERRLA Neck: Supple Lungs: CTAB Cardiovascular: RRR, Normal S1, Normal S2, without murmur Abdomen: soft, non-distended, positive bowel sound Extremities: excoriation Neurological: alert Internal Medicine Assmt/Plan - Assessment Assessment: Agitation. Dementia. History of Hypertension. History of Peptic Ulcer disease/GERD. History of Psychosis. History of Bipolar disease. History of Depression. - Plan Plan: Continuation of care. Psych management per Psych. Monitor Labs. Monitor vitals, continue B/P meds as directed. Continue present meds as directed. Monitor Diet/Nutritional support. Pain Management. Physical therapy/Occupational therapy. Safety precaution. Supportive care. Fall precaution, frequent nursing rounds, and as needed restraints to prevent fall. Continue collaborating with consulting specialists, case management and nursing team. Will Monitor patient and continue present care management. Nutritional Asmnt/Malnutr-PDOC - Dietary Evaluation Malnutrition Findings (Please click <Entered> for more info): see orders.
[2018-12-19] MEDS: Multivitamin Tab PO SCH (08:16)
--- NOTE | 2018-12-19 20:47 | Progress Notes ---
DATE: 12/19/2018 Case was discussed with staff of the patient, reviewed records. The patient continues to be confused, unable to make safe plan for self-care. Continues to be unpredictable, impulsive, needing redirection. Continues to have poor insight. No side effects with the medication, no sedation, no nausea, no extrapyramidal symptoms. She is on Aricept 10 mg at bedtime and olanzapine 10 mg at bedtime. No side effects, no sedation, no nausea, no extrapyramidal symptoms. We will continue to work with the patient in group therapy, milieu therapy, and adjust the medication as needed. JOB# [id number]
--- NOTE | 2018-12-19 22:17 | Progress Notes ---
DATE: 12/19/2018 SUBJECTIVE: The patient was seen in the dining area. The patient is a poor historian, appears to be disheveled and unkempt with poor impulse control, easily gets frustrated and agitated. Otherwise, the patient is in no acute distress. OBJECTIVE: VITAL SIGNS: Temperature 97.8, heart rate 76, blood pressure 142/71, respirations 20, 96% on room air. HEENT: Head is atraumatic and normocephalic. Eyes: Bilateral conjunctivae are clear. Bilateral pupils equal, round, reactive. NECK: Supple. No JVD. CARDIOVASCULAR: S1 and S2, without murmur. PULMONARY: Clear to auscultation. GASTROINTESTINAL: Soft and nontender without guarding. Positive bowel sounds. MUSCULOSKELETAL: No clubbing. No cyanosis noted. ASSESSMENT: 1. Dementia. 2. Hypertension. 3. Gastroesophageal reflux disease. PLAN: We will keep the patient in Inpatient Psychiatric Unit. We will follow up with a psychiatrist to monitor the patient's condition and behavior. Treatment plans were discussed with the patient's nurse. Treatment plans were discussed with Dr. Redmond. JOB# [id number]
[2018-12-20] MEDS: Multivitamin Tab PO SCH (09:36)
--- NOTE | 2018-12-20 09:40 | Internal Medicine Prog Note ---
Internal Medicine Subjective - Subjective Patient seen and examined:: with staff Patient is:: awake, verbal, liliane chair, agitated, confused Patient Complaints of:: other (Agitated and demented.) Per staff patient has:: no adverse event, no episodes of fall, tolerating meds Internal Medicine Objective - Results Result Diagrams: 12/15/18 19:40 12/15/18 19:40 Recent Labs: Laboratory Last Values WBC 7.4 Th/cmm (4.8-10.8) 12/15/18 19:40 RBC 4.30 Mil/cmm (3.80-5.20) 12/15/18 19:40 Hgb 12.8 gm/dL (12-16) 12/15/18 19:40 Hct 37.8 % (41.0-60) L 12/15/18 19:40 MCV 87.8 fl (81-100) 12/15/18 19:40 MCH 29.8 pg (27.0-31.0) 12/15/18 19:40 MCHC Differential 33.9 pg (28.0-36.0) 12/15/18 19:40 RDW 13.7 % (11.5-20.0) 12/15/18 19:40 Plt Count 145 Th/cmm (150-400) L 12/15/18 19:40 MPV 10.2 fl 12/15/18 19:40 Neutrophils % 57.2 % (40.0-80.0) 12/15/18 19:40 Lymphocytes % 27.6 % (20.0-50.0) 12/15/18 19:40 Monocytes % 8.9 % (2.0-10.0) 12/15/18 19:40 Eosinophils % 5.1 % (0.0-5.0) H 12/15/18 19:40 Basophils % 1.2 % (0.0-2.0) 12/15/18 19:40 Sodium 141 mEq/L (136-145) 12/15/18 19:40 Potassium 3.6 mEq/L (3.5-5.1) 12/15/18 19:40 Chloride 107 mEq/L (98-107) 12/15/18 19:40 Carbon Dioxide 27.6 mEq/L (21.0-31.0) 12/15/18 19:40 Anion Gap 10.0 (7.0-16.0) 12/15/18 19:40 BUN 22 mg/dL (7-25) 12/15/18 19:40 Creatinine 1.1 mg/dL (0.6-1.2) 12/15/18 19:40 Est GFR ( Amer) TNP 12/15/18 19:40 Est GFR (Non-Af Amer) TNP 12/15/18 19:40 BUN/Creatinine Ratio 20.0 12/15/18 19:40 Glucose 100 mg/dL (70-105) 12/15/18 19:40 Calcium 8.9 mg/dL (8.6-10.3) 12/15/18 19:40 Total Bilirubin 0.3 mg/dL (0.3-1.0) 12/15/18 19:40 AST 18 U/L (13-39) 12/15/18 19:40 ALT 9 U/L (7-52) 12/15/18 19:40 Alkaline Phosphatase 58 U/L (34-104) 12/15/18 19:40 Troponin I 0.01 ng/mL (0.01-0.05) 12/15/18 19:40 Total Protein 7.1 gm/dL (6.0-8.3) 12/15/18 19:40 Albumin 3.7 gm/dL (3.7-5.3) 12/15/18 19:40 Globulin 3.4 gm/dL 12/15/18 19:40 Albumin/Globulin Ratio 1.1 (1.0-1.8) 12/15/18 19:40 Triglycerides 58 mg/dL (<150) 12/15/18 19:40 Cholesterol 160 mg/dL (<200) 12/15/18 19:40 LDL Cholesterol Direct 87 mg/dL (75-193) 12/15/18 19:40 HDL Cholesterol 62 mg/dL (23-92) 12/15/18 19:40 TSH 1.08 uIU/ml (0.34-5.60) 12/15/18 19:40 Salicylates < 25.0 mg/L (30.0-100.0) L 12/15/18 19:40 Acetaminophen < 10.0 ug/mL (10.0-30.0) L 12/15/18 19:40 Ethyl Alcohol < 10 mg/dL (0-10) 12/15/18 19:40 - Physical Exam Vitals and I&O: Vital Signs Temp 97 F 12/20/18 06:30 Pulse 70 12/20/18 06:30 Resp 18 12/20/18 06:30 BP 118/75 12/20/18 06:30 Pulse Ox 98 12/20/18 06:30 Intake & Output 12/19/18 12/20/18 12/20/18 18:59 06:59 18:59 Intake Total 120 Balance 120 Intake: Oral 120 Other: # Voids 3 Active Medications: Current Medications Acetaminophen (Tylenol Extra Strength) 1,000 mg PO Q4H PRN PRN Reason: Pain (Moderate) Stop: 02/13/19 21:51 Acetaminophen (Tylenol) 650 mg PO Q4HR PRN PRN Reason: Mild Pain / Temp above 100 Stop: 02/13/19 21:51 Al Hydrox/Mg Hydrox/Simethicone (Maalox) 30 ml PO Q4HR PRN PRN Reason: GI DISTRESS Stop: 02/13/19 21:46 Donepezil HCl (Aricept) 10 mg PO HS [facility] Stop: 02/14/19 20:59 Last Admin: 12/19/18 20:40 Dose: 10 mg Famotidine (Pepcid) 20 mg PO DAILY [facility] Stop: 02/14/19 08:59 Last Admin: 12/20/18 09:36 Dose: 20 mg Gabapentin (Neurontin) 300 mg PO BID [facility] Stop: 02/14/19 08:59 Last Admin: 12/20/18 09:36 Dose: 300 mg Lorazepam (Ativan) 0.5 mg PO Q4HR PRN; Protocol PRN Reason: Anxiety Stop: 01/14/19 21:46 Last Admin: 12/17/18 00:25 Dose: 0.5 mg Magnesium Hydroxide (Milk Of Magnesia) 30 ml PO HS PRN PRN Reason: Constipation Stop: 02/13/19 21:51 Multivitamins/Vitamin C (Theragran) 1 tab PO DAILY [facility] Stop: 02/14/19 08:59 Last Admin: 12/20/18 09:36 Dose: 1 tab Olanzapine (Zyprexa) 10 mg PO HS [facility]; Protocol Stop: 02/14/19 20:59 Last Admin: 12/19/18 20:40 Dose: 10 mg Zolpidem Tartrate (Ambien) 5 mg PO HS PRN PRN Reason: Insomnia Stop: 02/13/19 21:46 Last Admin: 12/19/18 22:00 Dose: 5 mg General: alert, demented, NAD HEENT: NC/AT, PERRLA Neck: Supple, No JVD Lungs: CTAB Cardiovascular: RRR, Normal S1, Normal S2 Abdomen: soft, non-tender, non-distended, positive bowel sound Extremities: excoriation Neurological: no change Internal Medicine Assmt/Plan - Assessment Assessment: Agitation. Dementia. History of Hypertension. History of Peptic Ulcer disease/GERD. History of Psychosis. History of Bipolar disease. History of Depression. - Plan Plan: Continue current treatment plan. Monitor Labs.Continue current medications Continue to monitor VS Monitor Diet/Nutritional support. Psych management per Psychiatry. Pain Management. PT/OT prn Safety precaution, Fall precaution, frequent nursing round. Supportive care. Continue collaborating with consulting specialists, case management and nursing team.
--- NOTE | 2018-12-20 22:47 | Progress Notes ---
DATE: 12/20/2018 Case was discussed with staff of the patient, reviewed records. The patient continues to be mostly staying to herself, isolating, nonverbal, unable to make safe plan for self-care. Continues to be unpredictable and impulsive, episodes of agitation and irritability. She is sleeping better, eating better. No side effects to the medication, no sedation, no nausea, no extrapyramidal symptoms. We will continue to work with the patient in group therapy, milieu therapy, and adjust the medications as needed. JOB# [id number]
[2018-12-21] MEDS: Multivitamin Tab PO SCH (08:16)
--- NOTE | 2018-12-21 10:34 | Internal Medicine Prog Note ---
Internal Medicine Subjective - Subjective Service Date: 12/21/18 Patient seen and examined:: with staff, chart reviewed Patient is:: awake, verbal, liliane chair, agitated, confused Patient Complaints of:: other (Agitated and demented.) Per staff patient has:: no adverse event, no episodes of fall, tolerating meds Internal Medicine Objective - Results Result Diagrams: 12/15/18 19:40 12/15/18 19:40 Recent Labs: Laboratory Last Values WBC 7.4 Th/cmm (4.8-10.8) 12/15/18 19:40 RBC 4.30 Mil/cmm (3.80-5.20) 12/15/18 19:40 Hgb 12.8 gm/dL (12-16) 12/15/18 19:40 Hct 37.8 % (41.0-60) L 12/15/18 19:40 MCV 87.8 fl (81-100) 12/15/18 19:40 MCH 29.8 pg (27.0-31.0) 12/15/18 19:40 MCHC Differential 33.9 pg (28.0-36.0) 12/15/18 19:40 RDW 13.7 % (11.5-20.0) 12/15/18 19:40 Plt Count 145 Th/cmm (150-400) L 12/15/18 19:40 MPV 10.2 fl 12/15/18 19:40 Neutrophils % 57.2 % (40.0-80.0) 12/15/18 19:40 Lymphocytes % 27.6 % (20.0-50.0) 12/15/18 19:40 Monocytes % 8.9 % (2.0-10.0) 12/15/18 19:40 Eosinophils % 5.1 % (0.0-5.0) H 12/15/18 19:40 Basophils % 1.2 % (0.0-2.0) 12/15/18 19:40 Sodium 141 mEq/L (136-145) 12/15/18 19:40 Potassium 3.6 mEq/L (3.5-5.1) 12/15/18 19:40 Chloride 107 mEq/L (98-107) 12/15/18 19:40 Carbon Dioxide 27.6 mEq/L (21.0-31.0) 12/15/18 19:40 Anion Gap 10.0 (7.0-16.0) 12/15/18 19:40 BUN 22 mg/dL (7-25) 12/15/18 19:40 Creatinine 1.1 mg/dL (0.6-1.2) 12/15/18 19:40 Est GFR ( Amer) TNP 12/15/18 19:40 Est GFR (Non-Af Amer) TNP 12/15/18 19:40 BUN/Creatinine Ratio 20.0 12/15/18 19:40 Glucose 100 mg/dL (70-105) 12/15/18 19:40 Calcium 8.9 mg/dL (8.6-10.3) 12/15/18 19:40 Total Bilirubin 0.3 mg/dL (0.3-1.0) 12/15/18 19:40 AST 18 U/L (13-39) 12/15/18 19:40 ALT 9 U/L (7-52) 12/15/18 19:40 Alkaline Phosphatase 58 U/L (34-104) 12/15/18 19:40 Troponin I 0.01 ng/mL (0.01-0.05) 12/15/18 19:40 Total Protein 7.1 gm/dL (6.0-8.3) 12/15/18 19:40 Albumin 3.7 gm/dL (3.7-5.3) 12/15/18 19:40 Globulin 3.4 gm/dL 12/15/18 19:40 Albumin/Globulin Ratio 1.1 (1.0-1.8) 12/15/18 19:40 Triglycerides 58 mg/dL (<150) 12/15/18 19:40 Cholesterol 160 mg/dL (<200) 12/15/18 19:40 LDL Cholesterol Direct 87 mg/dL (75-193) 12/15/18 19:40 HDL Cholesterol 62 mg/dL (23-92) 12/15/18 19:40 TSH 1.08 uIU/ml (0.34-5.60) 12/15/18 19:40 Salicylates < 25.0 mg/L (30.0-100.0) L 12/15/18 19:40 Acetaminophen < 10.0 ug/mL (10.0-30.0) L 12/15/18 19:40 Ethyl Alcohol < 10 mg/dL (0-10) 12/15/18 19:40 RPR NONREACTIVE (NONREACTIVE) 12/15/18 19:40 - Physical Exam Vitals and I&O: Vital Signs Temp 97.5 F 12/21/18 05:55 Pulse 76 12/21/18 05:55 Resp 19 12/21/18 05:55 BP 128/66 12/21/18 05:55 Pulse Ox 99 12/21/18 05:55 Intake & Output 12/20/18 12/21/18 12/21/18 18:59 06:59 18:59 Intake Total 1150 180 Balance 1150 180 Intake: Oral 1150 180 Other: # Voids 1 # Bowel Movements 0 Active Medications: Current Medications Acetaminophen (Tylenol Extra Strength) 1,000 mg PO Q4H PRN PRN Reason: Pain (Moderate) Stop: 02/13/19 21:51 Acetaminophen (Tylenol) 650 mg PO Q4HR PRN PRN Reason: Mild Pain / Temp above 100 Stop: 02/13/19 21:51 Al Hydrox/Mg Hydrox/Simethicone (Maalox) 30 ml PO Q4HR PRN PRN Reason: GI DISTRESS Stop: 02/13/19 21:46 Donepezil HCl (Aricept) 10 mg PO HS [facility] Stop: 02/14/19 20:59 Last Admin: 12/20/18 21:00 Dose: 10 mg Famotidine (Pepcid) 20 mg PO DAILY [facility] Stop: 02/14/19 08:59 Last Admin: 12/21/18 08:16 Dose: 20 mg Gabapentin (Neurontin) 300 mg PO BID [facility] Stop: 02/14/19 08:59 Last Admin: 12/21/18 08:16 Dose: 300 mg Lorazepam (Ativan) 0.5 mg PO Q4HR PRN; Protocol PRN Reason: Anxiety Stop: 01/14/19 21:46 Last Admin: 12/17/18 00:25 Dose: 0.5 mg Magnesium Hydroxide (Milk Of Magnesia) 30 ml PO HS PRN PRN Reason: Constipation Stop: 02/13/19 21:51 Multivitamins/Vitamin C (Theragran) 1 tab PO DAILY [facility] Stop: 02/14/19 08:59 Last Admin: 12/21/18 08:16 Dose: 1 tab Olanzapine (Zyprexa) 10 mg PO HS [facility]; Protocol Stop: 02/14/19 20:59 Last Admin: 12/20/18 21:00 Dose: 10 mg Zolpidem Tartrate (Ambien) 5 mg PO HS PRN PRN Reason: Insomnia Stop: 02/13/19 21:46 Last Admin: 12/20/18 21:00 Dose: 5 mg Physical Exam: Patient is withdrawn, eating and sleeping better. General: alert, demented, NAD HEENT: NC/AT, PERRLA Neck: Supple, No JVD Lungs: CTAB Cardiovascular: RRR, Normal S1, Normal S2 Abdomen: soft, non-tender, non-distended, positive bowel sound Extremities: excoriation Neurological: no change Internal Medicine Assmt/Plan - Assessment Assessment: Agitation. Dementia. History of Hypertension. History of Peptic Ulcer disease/GERD. History of Psychosis. History of Bipolar disease. History of Depression. - Plan Plan: Continuation of care. Psych management per Psych. Monitor Labs. Monitor vitals, continue B/P meds as directed. Continue present meds as directed. Monitor Diet/Nutritional support. Pain Management. Physical therapy/Occupational therapy. Safety precaution. Supportive care. Fall precaution, frequent nursing rounds, and as needed restraints to prevent fall. Continue collaborating with consulting specialists, case management and nursing team. Will Monitor patient and continue present care management. Nutritional Asmnt/Malnutr-PDOC - Dietary Evaluation Malnutrition Findings (Please click <Entered> for more info): see orders.
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
[2018-12-22] MEDS: Multivitamin Tab PO SCH (09:10)
--- NOTE | 2018-12-22 15:34 | Internal Medicine Prog Note ---
Internal Medicine Subjective - Subjective Service Date: 12/22/18 Patient seen and examined:: with staff Patient is:: awake, verbal, liliane chair, agitated, confused Patient Complaints of:: other (Agitated and demented.) Per staff patient has:: no adverse event, no episodes of fall, tolerating meds Internal Medicine Objective - Results Result Diagrams: 12/15/18 19:40 12/15/18 19:40 Recent Labs: Laboratory Last Values WBC 7.4 Th/cmm (4.8-10.8) 12/15/18 19:40 RBC 4.30 Mil/cmm (3.80-5.20) 12/15/18 19:40 Hgb 12.8 gm/dL (12-16) 12/15/18 19:40 Hct 37.8 % (41.0-60) L 12/15/18 19:40 MCV 87.8 fl (81-100) 12/15/18 19:40 MCH 29.8 pg (27.0-31.0) 12/15/18 19:40 MCHC Differential 33.9 pg (28.0-36.0) 12/15/18 19:40 RDW 13.7 % (11.5-20.0) 12/15/18 19:40 Plt Count 145 Th/cmm (150-400) L 12/15/18 19:40 MPV 10.2 fl 12/15/18 19:40 Neutrophils % 57.2 % (40.0-80.0) 12/15/18 19:40 Lymphocytes % 27.6 % (20.0-50.0) 12/15/18 19:40 Monocytes % 8.9 % (2.0-10.0) 12/15/18 19:40 Eosinophils % 5.1 % (0.0-5.0) H 12/15/18 19:40 Basophils % 1.2 % (0.0-2.0) 12/15/18 19:40 Sodium 141 mEq/L (136-145) 12/15/18 19:40 Potassium 3.6 mEq/L (3.5-5.1) 12/15/18 19:40 Chloride 107 mEq/L (98-107) 12/15/18 19:40 Carbon Dioxide 27.6 mEq/L (21.0-31.0) 12/15/18 19:40 Anion Gap 10.0 (7.0-16.0) 12/15/18 19:40 BUN 22 mg/dL (7-25) 12/15/18 19:40 Creatinine 1.1 mg/dL (0.6-1.2) 12/15/18 19:40 Est GFR ( Amer) TNP 12/15/18 19:40 Est GFR (Non-Af Amer) TNP 12/15/18 19:40 BUN/Creatinine Ratio 20.0 12/15/18 19:40 Glucose 100 mg/dL (70-105) 12/15/18 19:40 Calcium 8.9 mg/dL (8.6-10.3) 12/15/18 19:40 Total Bilirubin 0.3 mg/dL (0.3-1.0) 12/15/18 19:40 AST 18 U/L (13-39) 12/15/18 19:40 ALT 9 U/L (7-52) 12/15/18 19:40 Alkaline Phosphatase 58 U/L (34-104) 12/15/18 19:40 Troponin I 0.01 ng/mL (0.01-0.05) 12/15/18 19:40 Total Protein 7.1 gm/dL (6.0-8.3) 12/15/18 19:40 Albumin 3.7 gm/dL (3.7-5.3) 12/15/18 19:40 Globulin 3.4 gm/dL 12/15/18 19:40 Albumin/Globulin Ratio 1.1 (1.0-1.8) 12/15/18 19:40 Triglycerides 58 mg/dL (<150) 12/15/18 19:40 Cholesterol 160 mg/dL (<200) 12/15/18 19:40 LDL Cholesterol Direct 87 mg/dL (75-193) 12/15/18 19:40 HDL Cholesterol 62 mg/dL (23-92) 12/15/18 19:40 TSH 1.08 uIU/ml (0.34-5.60) 12/15/18 19:40 Salicylates < 25.0 mg/L (30.0-100.0) L 12/15/18 19:40 Acetaminophen < 10.0 ug/mL (10.0-30.0) L 12/15/18 19:40 Ethyl Alcohol < 10 mg/dL (0-10) 12/15/18 19:40 RPR NONREACTIVE (NONREACTIVE) 12/15/18 19:40 - Physical Exam Vitals and I&O: Vital Signs Temp 98.1 F 12/22/18 14:00 Pulse 66 12/22/18 14:00 Resp 20 12/22/18 14:00 BP 118/74 12/22/18 14:00 Pulse Ox 96 12/22/18 14:00 Intake & Output 12/21/18 12/22/18 12/22/18 18:59 06:59 18:59 Intake Total 1390 Output Total 1 Balance 1389 Intake: Oral 1390 Output: Urine/Stool Mix 1 Other: # Voids 1 Stool Characteristics Soft Formed Active Medications: Current Medications Acetaminophen (Tylenol Extra Strength) 1,000 mg PO Q4H PRN PRN Reason: Pain (Moderate) Stop: 02/13/19 21:51 Acetaminophen (Tylenol) 650 mg PO Q4HR PRN PRN Reason: Mild Pain / Temp above 100 Stop: 02/13/19 21:51 Al Hydrox/Mg Hydrox/Simethicone (Maalox) 30 ml PO Q4HR PRN PRN Reason: GI DISTRESS Stop: 02/13/19 21:46 Donepezil HCl (Aricept) 10 mg PO HS [facility] Stop: 02/14/19 20:59 Last Admin: 12/21/18 21:11 Dose: 10 mg Famotidine (Pepcid) 20 mg PO DAILY [facility] Stop: 02/14/19 08:59 Last Admin: 12/22/18 09:10 Dose: 20 mg Gabapentin (Neurontin) 300 mg PO BID [facility] Stop: 02/14/19 08:59 Last Admin: 12/22/18 09:10 Dose: 300 mg Lorazepam (Ativan) 0.5 mg PO Q4HR PRN; Protocol PRN Reason: Anxiety Stop: 01/14/19 21:46 Last Admin: 12/17/18 00:25 Dose: 0.5 mg Magnesium Hydroxide (Milk Of Magnesia) 30 ml PO HS PRN PRN Reason: Constipation Stop: 02/13/19 21:51 Memantine (Namenda) 5 mg PO DAILY [facility] Stop: 02/20/19 08:59 Last Admin: 12/22/18 09:10 Dose: 5 mg Multivitamins/Vitamin C (Theragran) 1 tab PO DAILY [facility] Stop: 02/14/19 08:59 Last Admin: 12/22/18 09:10 Dose: Not Given Olanzapine (Zyprexa) 7.5 mg PO HS [facility]; Protocol Stop: 02/20/19 20:59 Zolpidem Tartrate (Ambien) 5 mg PO HS PRN PRN Reason: Insomnia Stop: 02/13/19 21:46 Last Admin: 12/21/18 21:12 Dose: 5 mg Physical Exam: Patient is awake, unpredictable, highly impulsive and very confused. General: alert, demented, NAD HEENT: NC/AT, PERRLA Neck: Supple, No JVD Lungs: CTAB Cardiovascular: RRR, Normal S1, Normal S2 Abdomen: soft, non-tender, non-distended, positive bowel sound Extremities: excoriation Neurological: no change Internal Medicine Assmt/Plan - Assessment Assessment: Agitation. Dementia. History of Hypertension. History of Peptic Ulcer disease/GERD. History of Psychosis. History of Bipolar disease. History of Depression. - Plan Plan: Continuation of care. Psych management per Psych. Monitor Labs. Monitor vitals, continue B/P meds as directed. Continue present meds as directed. Monitor Diet/Nutritional support. Pain Management. Physical therapy/Occupational therapy. Safety precaution. Supportive care. Fall precaution, frequent nursing rounds, and as needed restraints to prevent fall. Continue collaborating with consulting specialists, case management and nursing team. Will Monitor patient and continue present care management. Nutritional Asmnt/Malnutr-PDOC - Dietary Evaluation Malnutrition Findings (Please click <Entered> for more info): Nutritional Asmnt/Malnutrition Start: 12/21/18 10: 58 Text: Status: Complete Freq: Protocol: Document 12/21/18 10:58 JHONATHAN (Rec: 12/21/18 11:13 JHONATHAN [id number]) Nutritional Asmnt/Malnutrition Patient General Information Nutritional Screening Low Risk Diagnosis Psychosis Pertinent Medical Hx/Surgical Hx HTN, PUD/GERD, Dementia, Depression, Bipolar disorder Current Diet Order/ Nutrition Support Cardiac, Chopped Pertinent Medications Maalox (PRN), Pepcid, MOM (PRN ), Theragran Pertinent Labs 9/3: Hgb/Hct 12.8/37.8 Nutritional Hx/Data Height 1.52 m Height (Calculated Centimeters) 152.4 Current Weight (lbs) 71.668 kg Weight (Calculated Kilograms) 71.7 Weight (Calculated Grams) 61262.6 [place] Body Weight 100 LB (45.34) % [place] Body Weight 158 Body Mass Index (BMI) 30.8 Weight Status Obese GI Symptoms GI Symptoms None Last BM Not Noted Skin Integrity/Comment: Skin: WNL, intact, dryness, flaking Keshav: 18 Estimated Nutritional Goals BEE in Kcals: Adj wt of IBW Calories/Kcals/Kg 25-30 Kcals Calculated 6547-8638 Protein: Adj wt of IBW Protein g/k.0-1.2 Protein Calculated 52-62 Fluid: ml 2058-7308 ml (25-30 ml/kg) Nutritional Problem No current Nutrition Prob Problem No nutrition diagnosis at this time. Etiology N/A Signs/Symptoms: N/A Malnutrition Related to Morbid Obesity Malnutrition related to morbid obesity No Intervention/Recommendation Comments Continue with Cardiac, chopped diet as ordered. Expected Outcomes/Goals Expected Outcomes/Goals 1. PO intake to continue to meet >75% of nutritional needs . 2. Monitor PO intake, wt, nutrition related labs, and skin integrity. 3. F/U as low risk in 7 days, 12/28
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
--- NOTE | 2018-12-22 23:55 | Progress Notes ---
DATE: 12/22/2018 Case was discussed with staff of the patient, reviewed records. The patient continues to have poor insight, unpredictable, impulsive, demented, confused, can participate in meaningful conversation, participate in her ADLs, unable to make sensical statements, unpredictable, and impulsive. She is on Aricept 10 mg at bedtime, Namenda was initiated yesterday by Dr. Staton. She is on olanzapine 10 mg at bedtime. No side effects with the medication, no sedation, no nausea, no extrapyramidal symptoms. We will continue to work with the patient in group therapy, milieu therapy, and adjust medications as needed. JOB# [id number]
== END 2018-12-22 18:15 | DRG 884 ==
LOC: ER 18:47 → GERO2 20:45 → GERO 12-17 20:10
PROVIDERS: ADMIT Psychiatry & Neurology Psychiatry; ATTEND Psychiatry & Neurology Psychiatry
DX: F03.91 Unspecified dementia, unspecified severity, with behavioral disturbance (principal); I10 Essential (primary) hypertension; K21.9 Gastro-esophageal reflux disease without esophagitis; F29 Unspecified psychosis not due to a substance or known physiological condition; K27.9 Peptic ulcer, site unspecified, unspecified as acute or chronic, without hemorrhage or perforation; F20.9 Schizophrenia, unspecified; F41.9 Anxiety disorder, unspecified; Z88.0 Allergy status to penicillin; F32.9 Major depressive disorder, single episode, unspecified
CPT/HCPCS: 36415-UA; 80053-TC; 80061-TC; 80320-TC; 80329-TC; 83036-90; 84443-TC; 84484-TC; 85025-TC; 86592-TC; 93005; Z7610